=== PATIENT | female | born 1950 | race Caucasian/White ===

== ENCOUNTER 2018-04-30 11:15 | Outpatient (RCR) | payer MEDICARE, OTHER, SELFPAY ==
--- NOTE | 2018-04-08 12:15 | PT.OIE ---
Current Diagnoses Cervicalgia (04/08/18) Low back pain (04/08/18) Abnormal posture (04/08/18) Weakness (04/08/18) Provider Visit Care Team Role Provider Type Sonu Walter MD Primary Care Provider Physician Specialty: Internal Medicine Address: [address] [place] [address] Email: Young Humphrey MD Family Provider Non-Staff Specialty: Medical Address: [address] [place] [address] [address], [address] Email: Rasheeda Jacob MD Attending Provider Physician Specialty: Internal Medicine Address: [address] [place] [address], [facility] Email: Physical Therapy Initial Evaluation PT-OP-A Visit Information Start: 04/08/18 08:29 Freq: Status: Active Protocol: Document 04/08/18 11:15 [facility] (Rec: 04/08/18 11:55 [facility] [id number]) Out-Patient Physical Therapy Visit Information Visit Information Visit Type Initial Evaluation Visit Start Time 10:30 Visit Stop Time 11:30 Total Visit Minutes 60 Visit Number 1 Number of SUPERINTENDENT CIRCUS Visits 0 Evaluation Information Evaluation Date 04/08/18 PT-OP-B Current Condition Start: 04/08/18 09:09 Freq: Status: Active Protocol: Document 04/08/18 11:15 [facility] (Rec: 04/08/18 11:55 [facility] [id number]) Current Condition History of Current Condition Onset Date 5 weeks ago Current Complaints 5 wk history of daily neck pain and migraines which limit her function History of Current Condition Denies any injury or trauma. Does report that no longer has recliner, but sits on couch to watch TV with right-sided rotation due to furniture arrangement. 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 Prior Treatments and Tests MRI; results in hospital records Treatment Goals Patient/Caregiver Goals Minimize or eliminate neck pain and headaches, decrease back pain all to allow her to return to usual activities. Prior Functional Status Baseline Function- ADL's Independent Baseline Function- Mobility Independent Baseline Function- Gait independent, no device Current Functional Impairments (Reported) Functional Limitations- ADL's difficulty turning neck, pain with reading, increased pain with houshold activities, decreased activity tolerance PT-OP-C Subjective Start: 04/08/18 08:29 Freq: Status: Active Protocol: Document 04/08/18 11:15 [facility] (Rec: 04/08/18 11:55 [facility] [id number]) OP-PT Pain Assessment Pain Assessment Grid Paper Pain Assessment Grid Completed Yes Location Neck Scale Used Numeric (1 - 10) Description Aching Pressure With Movement Frequency Constant Radiating Location up into jaw, side of head Pain Aggravating Factors Activity Pain Alleviating Factors None Pain Behaviors Pain Behaviors Facial Grimacing Guarding PT-OP-E Functional Tests Start: 04/08/18 09:09 Freq: Status: Active Protocol: Document 04/08/18 11:15 [facility] (Rec: 04/08/18 11:55 [facility] [id number]) Functional Tests Apley's Scratch Test Action 1: The subject is instructed to touch the opposite shoulder with his/her hand. This motion checks Glenohumeral adduction, internal rotation , horizontal adduction and scapular protraction Action 2: The subject is instructed to place his/her arm overhead and reach behind the neck to touch his/her upper back. This motion checks Glenohumeral abduction, external rotation and scapular upward rotation and elevation. Action 3: The subject puts his/her hand on the lower back and reaches upward as far as possible. This motion checks glenohumeral adduction, internal rotation and scapular retraction with downward rotation Action 1- Left post shld Action 1- Right post shld Action 2- Left T2 Action 2- Right T2 Action 3- Left T7 Action 3- Right T7 PT-OP-F Manual Assessment Start: 04/08/18 09:09 Freq: Status: Active Protocol: Document 04/08/18 11:15 [facility] (Rec: 04/08/18 11:55 [facility] [id number]) Manual Assessments Soft Tissue Assessment Soft Tissue Mobility Assessment Increased soft tissue tightness left UT, levator, scalenes, rhomboids Joint Mobility Assessment Joint Mobility Assessment Decreased movement C3-C6 PT-OP-H Neuro Start: 04/08/18 09:09 Freq: Status: Active Protocol: Document 04/08/18 10:30 [facility] (Rec: 04/08/18 11:56 [facility] [id number]) Sensation Evaluation Gross Sensation Gross Sensation WNL PT-OP-J Posture/Palpation/Skin Start: 04/08/18 09:09 Freq: Status: Active Protocol: Document 04/08/18 10:30 [facility] (Rec: 04/08/18 11:58 [facility] [id number]) Posture Evaluation Position Sitting Head/C-Spine Posture Forward Head T-Spine Posture Increased Kyphosis L-Spine Posture Flattened Shoulder Posture (L) Rounded (R) Rounded Weight Distribution Decreased Wt.Bear on (R) PT-OP-K Range of Motion Start: 04/08/18 09:09 Freq: Status: Active Protocol: Document 04/08/18 10:30 [facility] (Rec: 04/08/18 12:13 [facility] [id number]) Cervical Spine Range of Motion Cervical Spine Active Testing Position Sitting Flexion 60 Extension 55 Rotation Left 65 Rotation Right 45 Lateral Flexion Left 65 Lateral Flexion Right 40 ROM Limitations Pain Lumbar Spine Range of Motion Lumbar Spine Active Testing Position standing ROM Limitations Pain Comments moderate limitations all motions, unable to extend beyond neutral PT-OP-M Strength Start: 04/08/18 09:09 Freq: Status: Active Protocol: Document 04/08/18 10:30 [facility] (Rec: 04/08/18 12:13 [facility] [id number]) Cervical Spine Strength Cervical Spine Manual Muscle Testing Testing Position Sitting Flexion (C1-2) 4+ Good+ Extension 4+ Good+ Rotation Left 4+ Good+ Rotation Right 4+ Good+ Lateral Flexion Left (C3) 4+ Good+ Lateral Flexion Right (C3) 4+ Good+ Comments Painful left with flexion PT-OP-Q Treatments Start: 04/08/18 08:29 Freq: Status: Active Protocol: Document 04/08/18 10:30 [facility] (Rec: 04/08/18 12:13 [facility] [id number]) Manual Therapy Treatment Soft Tissue Mobilization 1 Mobilization Type Strumming Intensity/Depth Moderate Body Position hooklying Manual Traction Cervical Body Position hooklying Reps/Duration 5 min Comments Patient reports pain relief Manual Techniques 1 Type MET Body Location for right aterior innominate Body Position Sidelying Reps/Duration 2 Self-Care/Home Management Treatment Education Patient Education Body Mechanics Posture Other Education positioning on couch Activities Self-Care/Home Management Activities continue use of heat PT-OP-R Modalities Start: 04/08/18 09:09 Freq: Status: Active Protocol: Document 04/08/18 10:30 [facility] (Rec: 04/08/18 12:13 [facility] [id number]) Hot Pack/Cold Pack Treatment Hot Pack Location cervical spine Patient Position Hooklying PT-OP-T Assessment and Plan Start: 04/08/18 08:29 Freq: Status: Active Protocol: Document 04/08/18 10:30 [facility] (Rec: 04/08/18 12:13 [facility] [id number]) Physical Therapy Assessment Rehab Potential Rehabilitation Potential Good Evaluation Complexity Number of Personal Factors/Comorbidities 1-2 Clinical Presentation at Evaluation Unstable Impairments Impairments Functional Activities Pain Posture ROM Goals Three Impairment postural dysfunction and poor habitual positioning Short Term Goal (STG) Patient to demonstrate good understanding of neutral postural alignment and be able to self-correct with min cues STG Duration 6 wks Intermediate Goal (LTG) Patient will make necessary changes in the home to allow for more neutral positioning of neck and be independent with postural correction LTG Duration 12 wjs Two Impairment ROM Short Term Goal (STG) Improve neck ROM by 10 deg in both right rotation and right sidebending STG Duration 6 wks Production Engine Repairer Goal (LTG) Improve neck ROM to WNL without pain to allow patient to resume all prior activities One Impairment functional activities Short Term Goal (STG) Improve neck disability index score from 48 to 35 STG Duration 6wks Production Engine Repairer Goal (LTG) Improve neck disability index score to 20 to improve quality of life LTG Duration 12 wks Assessment Summary Assessment Patient presents with function -limiting pain in cervical spine which appears due to degenerative changes as well as postural and positioning dysfunction, poor habits. Additionally chronic LBP exacerbated recently. Would benefit from PT for pain management, ROM, patient education, modalties and manual techniques, possible cervical traction including consideration of home traction unit if beneficial. Physical Therapy Plan Frequency and Duration Frequency of Treatment 2x/Week Duration of Treatment 12 Plan of Care Start Date 04/08/18 Plan of Care End Date 07/06/18 Therapeutic Interventions Therapeutic Interventions Home Exercise Program Manual Therapy Patient/Caregiver Education Self-Care/Home Management Taping Therapeutic Activities Therapeutic Exercises Modalities Electric Stimulation Hot Packs Infrared Therapy Iontophoresis Traction- Mechanical Ultrasound Next Visit Focus/Plan Next Visit Plan Postural education and exercises, initiate ultrasound , progress manual treatments for soft tissue mobilization Provider Signature Date
--- NOTE | 2018-04-08 12:16 | PT.OPPOC ---
Current Diagnoses Cervicalgia (04/08/18) Low back pain (04/08/18) Abnormal posture (04/08/18) Weakness (04/08/18) Provider Visit Care Team Role Provider Type Sonu Walter MD Primary Care Provider Physician Specialty: Internal Medicine Address: [address] [place] [address] Email: Young Humphrey MD Family Provider Non-Staff Specialty: Medical Address: [address] [place] [address] [address], [place], [address] Email: Rasheeda Jacob MD Attending Provider Physician Specialty: Internal Medicine Address: [address] [place] [address], [facility] Email: Plan Of Care PT-OP-T Assessment and Plan Start: 04/08/18 08:29 Freq: Status: Active Protocol: Document 04/08/18 10:30 [facility] (Rec: 04/08/18 12:13 [facility] [id number]) Physical Therapy Assessment Rehab Potential Rehabilitation Potential Good Evaluation Complexity Number of Personal Factors/Comorbidities 1-2 Clinical Presentation at Evaluation Unstable Impairments Impairments Functional Activities Pain Posture ROM Goals Three Impairment postural dysfunction and poor habitual positioning Short Term Goal (STG) Patient to demonstrate good understanding of neutral postural alignment and be able to self-correct with min cues STG Duration 6 wks Detention Goal (LTG) Patient will make necessary changes in the home to allow for more neutral positioning of neck and be independent with postural correction LTG Duration 12 wjs Two Impairment ROM Short Term Goal (STG) Improve neck ROM by 10 deg in both right rotation and right sidebending STG Duration 6 wks Junior Account Manager Goal (LTG) Improve neck ROM to WNL without pain to allow patient to resume all prior activities One Impairment functional activities Short Term Goal (STG) Improve neck disability index score from 48 to 35 STG Duration 6wks Detention Goal (LTG) Improve neck disability index score to 20 to improve quality of life LTG Duration 12 wks Assessment Summary Assessment Patient presents with function -limiting pain in cervical spine which appears due to degenerative changes as well as postural and positioning dysfunction, poor habits. Additionally chronic LBP exacerbated recently. Would benefit from PT for pain management, ROM, patient education, modalties and manual techniques, possible cervical traction including consideration of home traction unit if beneficial. Physical Therapy Plan Frequency and Duration Frequency of Treatment 2x/Week Duration of Treatment 12 Plan of Care Start Date 04/08/18 Plan of Care End Date 07/06/18 Therapeutic Interventions Therapeutic Interventions Home Exercise Program Manual Therapy Patient/Caregiver Education Self-Care/Home Management Taping Therapeutic Activities Therapeutic Exercises Modalities Electric Stimulation Hot Packs Infrared Therapy Iontophoresis Traction- Mechanical Ultrasound Next Visit Focus/Plan Next Visit Plan Postural education and exercises, initiate ultrasound , progress manual treatments for soft tissue mobilization Plan of Care Dates Plan of Care Start Date 04/08/18 Plan of Care End Date 07/06/18 Please Sign and Return: I have reviewed this Plan of Care and certify that the skilled therapy services above are required to meet the patient???s needs. Physician Signature Date Printed Name and Credentials
--- NOTE | 2018-04-13 14:27 | PT.OTN ---
Current Diagnoses Cervicalgia (04/13/18) Low back pain (04/13/18) Physical Therapy Treatment Note PT-OP-A Visit Information Start: 04/08/18 08:29 Freq: Status: Active Protocol: Document 04/13/18 09:46 [facility] (Rec: 04/13/18 14:27 [facility] [id number]) Out-Patient Physical Therapy Visit Information Visit Information Visit Type Treatment Note Visit Start Time 09:46 Visit Stop Time 10:31 Total Visit Minutes 45 Visit Number 2 Number of ADDING MACHINE MECHANIC Visits 0 PT-OP-B Current Condition Start: 04/08/18 09:09 Freq: Status: Active Protocol: Document 04/08/18 11:15 [facility] (Rec: 04/08/18 11:55 [facility] [id number]) Current Condition History of Current Condition Onset Date 5 weeks ago Current Complaints 5 wk history of daily neck pain and migraines which limit her function History of Current Condition Denies any injury or trauma. Does report that no longer has recliner, but sits on couch to watch TV with right-sided rotation due to furniture arrangement. 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 Prior Treatments and Tests MRI; results in hospital records Treatment Goals Patient/Caregiver Goals Minimize or eliminate neck pain and headaches, decrease back pain all to allow her to return to usual activities. Prior Functional Status Baseline Function- ADL's Independent Baseline Function- Mobility Independent Baseline Function- Gait independent, no device Current Functional Impairments (Reported) Functional Limitations- ADL's difficulty turning neck, pain with reading, increased pain with houshold activities, decreased activity tolerance PT-OP-C Subjective Start: 04/08/18 08:29 Freq: Status: Active Protocol: Document 04/13/18 09:46 [facility] (Rec: 04/13/18 10:36 [facility] [id number]) OP-PT Subjective Patient Comments Patient Comments Only 1 migraine since last seen, has made positional changes at home. Pleased with progress. Patient Reported Progress Improving PT-OP-E Functional Tests Start: 04/08/18 09:09 Freq: Status: Active Protocol: Document 04/08/18 11:15 [facility] (Rec: 04/08/18 11:55 [facility] [id number]) Functional Tests Akshatey's Scratch Test Action 1: The subject is instructed to touch the opposite shoulder with his/her hand. This motion checks Glenohumeral adduction, internal rotation , horizontal adduction and scapular protraction Action 2: The subject is instructed to place his/her arm overhead and reach behind the neck to touch his/her upper back. This motion checks Glenohumeral abduction, external rotation and scapular upward rotation and elevation. Action 3: The subject puts his/her hand on the lower back and reaches upward as far as possible. This motion checks glenohumeral adduction, internal rotation and scapular retraction with downward rotation Action 1- Left post shld Action 1- Right post shld Action 2- Left T2 Action 2- Right T2 Action 3- Left T7 Action 3- Right T7 PT-OP-F Manual Assessment Start: 04/08/18 09:09 Freq: Status: Active Protocol: Document 04/08/18 11:15 [facility] (Rec: 04/08/18 11:55 [facility] [id number]) Manual Assessments Soft Tissue Assessment Soft Tissue Mobility Assessment Increased soft tissue tightness left UT, levator, scalenes, rhomboids Joint Mobility Assessment Joint Mobility Assessment Decreased movement C3-C6 PT-OP-H Neuro Start: 04/08/18 09:09 Freq: Status: Active Protocol: Document 04/08/18 10:30 [facility] (Rec: 04/08/18 11:56 [facility] [id number]) Sensation Evaluation Gross Sensation Gross Sensation WNL PT-OP-J Posture/Palpation/Skin Start: 04/08/18 09:09 Freq: Status: Active Protocol: Document 04/08/18 10:30 [facility] (Rec: 04/08/18 11:58 [facility] [id number]) Posture Evaluation Position Sitting Head/C-Spine Posture Forward Head T-Spine Posture Increased Kyphosis L-Spine Posture Flattened Shoulder Posture (L) Rounded (R) Rounded Weight Distribution Decreased Wt.Bear on (R) PT-OP-K Range of Motion Start: 04/08/18 09:09 Freq: Status: Active Protocol: Document 04/08/18 10:30 [facility] (Rec: 04/08/18 12:13 [facility] [id number]) Cervical Spine Range of Motion Cervical Spine Active Testing Position Sitting Flexion 60 Extension 55 Rotation Left 65 Rotation Right 45 Lateral Flexion Left 65 Lateral Flexion Right 40 ROM Limitations Pain Lumbar Spine Range of Motion Lumbar Spine Active Testing Position standing ROM Limitations Pain Comments moderate limitations all motions, unable to extend beyond neutral PT-OP-M Strength Start: 04/08/18 09:09 Freq: Status: Active Protocol: Document 04/08/18 10:30 [facility] (Rec: 04/08/18 12:13 [facility] [id number]) Cervical Spine Strength Cervical Spine Manual Muscle Testing Testing Position Sitting Flexion (C1-2) 4+ Good+ Extension 4+ Good+ Rotation Left 4+ Good+ Rotation Right 4+ Good+ Lateral Flexion Left (C3) 4+ Good+ Lateral Flexion Right (C3) 4+ Good+ Comments Painful left with flexion PT-OP-Q Treatments Start: 04/08/18 08:29 Freq: Status: Active Protocol: Document 04/13/18 09:46 [facility] (Rec: 04/13/18 14:27 [facility] [id number]) Therapeutic Exercises Supine Exercises 2 Supine Exercise Name hip flexor stretch Equipment Used treatment table Reps/Minutes 2 ea 1 Supine Exercise Name pillow squeeze Reps/Minutes 5 Manual Therapy Treatment Soft Tissue Mobilization 2 Body Location l/s Mobilization Type Strumming Intensity/Depth Moderate Body Position Prone Comments prone pillow 1 Body Location c/s, upper traps, levator scap Mobilization Type Strumming Intensity/Depth Moderate Body Position hooklying Manual Traction Cervical Body Position hooklying Reps/Duration 10 min Comments Patient reports pain relief Manual Techniques 2 Type iliopsoas release Body Position hooklying 1 Type MET Body Location for right aterior innominate Body Position Sidelying Reps/Duration 2 PT-OP-R Modalities Start: 04/08/18 09:09 Freq: Status: Active Protocol: Document 04/13/18 09:46 [facility] (Rec: 04/13/18 14:27 [facility] [id number]) Hot Pack/Cold Pack Treatment Hot Pack Location l/s during c/s manual treatment PT-OP-T Assessment and Plan Start: 04/08/18 08:29 Freq: Status: Active Protocol: Document 04/13/18 09:46 [facility] (Rec: 04/13/18 14:27 [facility] [id number]) Physical Therapy Assessment Assessment Summary Assessment Patient tolerated treatment well and verbalized decreased pain. Responded well to first treatment and recommendations for modifications to positioning in her home all of which seem to be helpful. Good progress. Physical Therapy Plan Frequency and Duration Frequency of Treatment 2x/Week Duration of Treatment 12 Plan of Care Start Date 04/08/18 Plan of Care End Date 07/06/18 Therapeutic Interventions Therapeutic Interventions Home Exercise Program Manual Therapy Patient/Caregiver Education Self-Care/Home Management Taping Therapeutic Activities Therapeutic Exercises Modalities Electric Stimulation Hot Packs Infrared Therapy Iontophoresis Traction- Mechanical Ultrasound Next Visit Focus/Plan Next Visit Plan Assess response to last session, progress ther ex as tolerated, continue manual therapy techniques for pain management, soft tissue mobility. Please Sign and Return: I have reviewed this Plan of Care and certify that the skilled therapy services above are required to meet the patient???s needs. Physician Signature Date Printed Name and Credentials Clinical Instructor Signature Printed Name and Credentials
--- NOTE | 2018-04-15 13:31 | PT.OTN ---
Current Diagnoses Cervicalgia (04/15/18) Low back pain (04/15/18) Physical Therapy Treatment Note PT-OP-A Visit Information Start: 04/08/18 08:29 Freq: Status: Active Protocol: Document 04/15/18 10:30 SAK (Rec: 04/15/18 13:30 SAK [id number]) Out-Patient Physical Therapy Visit Information Visit Information Visit Type Treatment Note Visit Start Time 10:30 Visit Stop Time 11:15 Total Visit Minutes 45 Visit Number 3 Number of REPAIRER TYPEWRITER Visits 0 Evaluation Information Evaluation Date 04/08/18 PT-OP-B Current Condition Start: 04/08/18 09:09 Freq: Status: Active Protocol: Document 04/08/18 11:15 SAK (Rec: 04/08/18 11:55 SAK [id number]) Current Condition History of Current Condition Onset Date 5 weeks ago Current Complaints 5 wk history of daily neck pain and migraines which limit her function History of Current Condition Denies any injury or trauma. Does report that no longer has recliner, but sits on couch to watch TV with right-sided rotation due to furniture arrangement. 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 Prior Treatments and Tests MRI; results in hospital records Treatment Goals Patient/Caregiver Goals Minimize or eliminate neck pain and headaches, decrease back pain all to allow her to return to usual activities. Prior Functional Status Baseline Function- ADL's Independent Baseline Function- Mobility Independent Baseline Function- Gait independent, no device Current Functional Impairments (Reported) Functional Limitations- ADL's difficulty turning neck, pain with reading, increased pain with houshold activities, decreased activity tolerance PT-OP-C Subjective Start: 04/08/18 08:29 Freq: Status: Active Protocol: Document 04/15/18 10:30 SAK (Rec: 04/15/18 13:22 SAK [id number]) OP-PT Subjective Patient Comments Patient Comments No migraine, but reports feeling fluttering in side of head which can sometimes be a precursor. Wants to work on both back and neck today. Patient Reported Progress Improving PT-OP-E Functional Tests Start: 04/08/18 09:09 Freq: Status: Active Protocol: Document 04/08/18 11:15 SAK (Rec: 04/08/18 11:55 [facility] [id number]) Functional Tests Apley's Scratch Test Action 1: The subject is instructed to touch the opposite shoulder with his/her hand. This motion checks Glenohumeral adduction, internal rotation , horizontal adduction and scapular protraction Action 2: The subject is instructed to place his/her arm overhead and reach behind the neck to touch his/her upper back. This motion checks Glenohumeral abduction, external rotation and scapular upward rotation and elevation. Action 3: The subject puts his/her hand on the lower back and reaches upward as far as possible. This motion checks glenohumeral adduction, internal rotation and scapular retraction with downward rotation Action 1- Left post shld Action 1- Right post shld Action 2- Left T2 Action 2- Right T2 Action 3- Left T7 Action 3- Right T7 PT-OP-F Manual Assessment Start: 04/08/18 09:09 Freq: Status: Active Protocol: Document 04/08/18 11:15 [facility] (Rec: 04/08/18 11:55 [facility] [id number]) Manual Assessments Soft Tissue Assessment Soft Tissue Mobility Assessment Increased soft tissue tightness left UT, levator, scalenes, rhomboids Joint Mobility Assessment Joint Mobility Assessment Decreased movement C3-C6 PT-OP-H Neuro Start: 04/08/18 09:09 Freq: Status: Active Protocol: Document 04/08/18 10:30 [facility] (Rec: 04/08/18 11:56 [facility] [id number]) Sensation Evaluation Gross Sensation Gross Sensation WNL PT-OP-J Posture/Palpation/Skin Start: 04/08/18 09:09 Freq: Status: Active Protocol: Document 04/08/18 10:30 [facility] (Rec: 04/08/18 11:58 [facility] [id number]) Posture Evaluation Position Sitting Head/C-Spine Posture Forward Head T-Spine Posture Increased Kyphosis L-Spine Posture Flattened Shoulder Posture (L) Rounded (R) Rounded Weight Distribution Decreased Wt.Bear on (R) PT-OP-K Range of Motion Start: 04/08/18 09:09 Freq: Status: Active Protocol: Document 04/08/18 10:30 [facility] (Rec: 04/08/18 12:13 [facility] [id number]) Cervical Spine Range of Motion Cervical Spine Active Testing Position Sitting Flexion 60 Extension 55 Rotation Left 65 Rotation Right 45 Lateral Flexion Left 65 Lateral Flexion Right 40 ROM Limitations Pain Lumbar Spine Range of Motion Lumbar Spine Active Testing Position standing ROM Limitations Pain Comments moderate limitations all motions, unable to extend beyond neutral PT-OP-M Strength Start: 04/08/18 09:09 Freq: Status: Active Protocol: Document 04/08/18 10:30 SAK (Rec: 04/08/18 12:13 [facility] [id number]) Cervical Spine Strength Cervical Spine Manual Muscle Testing Testing Position Sitting Flexion (C1-2) 4+ Good+ Extension 4+ Good+ Rotation Left 4+ Good+ Rotation Right 4+ Good+ Lateral Flexion Left (C3) 4+ Good+ Lateral Flexion Right (C3) 4+ Good+ Comments Painful left with flexion PT-OP-Q Treatments Start: 04/08/18 08:29 Freq: Status: Active Protocol: Document 04/15/18 10:30 SAK (Rec: 04/15/18 13:29 [facility] [id number]) Therapeutic Exercises Supine Exercises 3 Supine Exercise Name hamstring stretch right Comments too painful/tight to tolerate 2 Supine Exercise Name hip flexor stretch Equipment Used treatment table Reps/Minutes 2 ea 1 Supine Exercise Name pillow squeeze Reps/Minutes 5 Standing Exercises 1 Standing Exercise Name postural isometric at wall standing Reps/Minutes 5x Comments with postural education, written pictures issued Other Exercises 1 Other Exercise Name Gentle cat/cow Reps/Minutes 5x Manual Therapy Treatment Soft Tissue Mobilization 2 Body Location l/s, right hamstring Mobilization Type Strumming Intensity/Depth Moderate Body Position Prone Comments prone pillow 1 Body Location c/s, upper traps, levator scap Mobilization Type Strumming Intensity/Depth Moderate Body Position hooklying Manual Traction Cervical Body Position hooklying Reps/Duration 10 min Comments Patient reports pain relief Taping 1 Body Location left thoracolumbar paraspinals Treatment Focus inhibition, pain management Type of Tape Kinesio Tape Comments I strip PT-OP-R Modalities Start: 04/08/18 09:09 Freq: Status: Active Protocol: Document 04/15/18 10:30 SAK (Rec: 04/15/18 13:29 [facility] [id number]) Hot Pack/Cold Pack Treatment Hot Pack Location l/s during c/s manual treatment PT-OP-T Assessment and Plan Start: 04/08/18 08:29 Freq: Status: Active Protocol: Document 04/15/18 10:30 SAK (Rec: 04/15/18 13:29 [facility] [id number]) Physical Therapy Assessment Assessment Summary Assessment Poor tolerance for hamstring stretching. Palpable muscle tightness mid to distal right hamstring and right thoracic and lumbar paraspinals. Physical Therapy Plan Frequency and Duration Frequency of Treatment 2x/Week Duration of Treatment 12 Plan of Care Start Date 04/08/18 Plan of Care End Date 07/06/18 Therapeutic Interventions Therapeutic Interventions Home Exercise Program Manual Therapy Patient/Caregiver Education Self-Care/Home Management Taping Therapeutic Activities Therapeutic Exercises Modalities Electric Stimulation Hot Packs Infrared Therapy Iontophoresis Traction- Mechanical Ultrasound Next Visit Focus/Plan Next Note Type Treatment Note Next Visit Plan Progress with further postural stabilization and strengthening exercises as tolerated. Manual techniques and modalities as indicated for pain management, increased soft tissue mobility. Please Sign and Return: I have reviewed this Plan of Care and certify that the skilled therapy services above are required to meet the patient???s needs. Physician Signature Date Printed Name and Credentials Clinical Instructor Signature Printed Name and Credentials
--- NOTE | 2018-04-20 16:16 | PT.OTN ---
Current Diagnoses Cervicalgia (04/20/18) Low back pain (04/20/18) Physical Therapy Treatment Note PT-OP-A Visit Information Start: 04/08/18 08:29 Freq: Status: Active Protocol: Document 04/20/18 15:20 SAK (Rec: 04/20/18 16:16 SAK [id number]) Out-Patient Physical Therapy Visit Information Visit Information Visit Type Treatment Note Visit Start Time 10:30 Visit Stop Time 11:15 Total Visit Minutes 45 Visit Number 4 Number of MANAGER HEART Visits 0 PT-OP-B Current Condition Start: 04/08/18 09:09 Freq: Status: Active Protocol: Document 04/08/18 11:15 SAK (Rec: 04/08/18 11:55 SAK [id number]) Current Condition History of Current Condition Onset Date 5 weeks ago Current Complaints 5 wk history of daily neck pain and migraines which limit her function History of Current Condition Denies any injury or trauma. Does report that no longer has recliner, but sits on couch to watch TV with right-sided rotation due to furniture arrangement. 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 Prior Treatments and Tests MRI; results in hospital records Treatment Goals Patient/Caregiver Goals Minimize or eliminate neck pain and headaches, decrease back pain all to allow her to return to usual activities. Prior Functional Status Baseline Function- ADL's Independent Baseline Function- Mobility Independent Baseline Function- Gait independent, no device Current Functional Impairments (Reported) Functional Limitations- ADL's difficulty turning neck, pain with reading, increased pain with houshold activities, decreased activity tolerance PT-OP-C Subjective Start: 04/08/18 08:29 Freq: Status: Active Protocol: Document 04/20/18 15:20 SAK (Rec: 04/20/18 16:16 SAK [id number]) OP-PT Subjective Patient Comments Patient Comments 2 migraines since last seen, wondering if due to focus on low back pain last session; requests focus again on c/s, DEE. PT-OP-E Functional Tests Start: 04/08/18 09:09 Freq: Status: Active Protocol: Document 04/08/18 11:15 SAK (Rec: 04/08/18 11:55 SAK [id number]) Functional Tests Apley's Scratch Test Action 1: The subject is instructed to touch the opposite shoulder with his/her hand. This motion checks Glenohumeral adduction, internal rotation , horizontal adduction and scapular protraction Action 2: The subject is instructed to place his/her arm overhead and reach behind the neck to touch his/her upper back. This motion checks Glenohumeral abduction, external rotation and scapular upward rotation and elevation. Action 3: The subject puts his/her hand on the lower back and reaches upward as far as possible. This motion checks glenohumeral adduction, internal rotation and scapular retraction with downward rotation Action 1- Left post shld Action 1- Right post shld Action 2- Left T2 Action 2- Right T2 Action 3- Left T7 Action 3- Right T7 PT-OP-F Manual Assessment Start: 04/08/18 09:09 Freq: Status: Active Protocol: Document 04/08/18 11:15 [facility] (Rec: 04/08/18 11:55 [facility] [id number]) Manual Assessments Soft Tissue Assessment Soft Tissue Mobility Assessment Increased soft tissue tightness left UT, levator, scalenes, rhomboids Joint Mobility Assessment Joint Mobility Assessment Decreased movement C3-C6 PT-OP-H Neuro Start: 04/08/18 09:09 Freq: Status: Active Protocol: Document 04/08/18 10:30 [facility] (Rec: 04/08/18 11:56 [facility] [id number]) Sensation Evaluation Gross Sensation Gross Sensation WNL PT-OP-J Posture/Palpation/Skin Start: 04/08/18 09:09 Freq: Status: Active Protocol: Document 04/08/18 10:30 [facility] (Rec: 04/08/18 11:58 [facility] [id number]) Posture Evaluation Position Sitting Head/C-Spine Posture Forward Head T-Spine Posture Increased Kyphosis L-Spine Posture Flattened Shoulder Posture (L) Rounded (R) Rounded Weight Distribution Decreased Wt.Bear on (R) PT-OP-K Range of Motion Start: 04/08/18 09:09 Freq: Status: Active Protocol: Document 04/08/18 10:30 SAK (Rec: 04/08/18 12:13 [facility] [id number]) Cervical Spine Range of Motion Cervical Spine Active Testing Position Sitting Flexion 60 Extension 55 Rotation Left 65 Rotation Right 45 Lateral Flexion Left 65 Lateral Flexion Right 40 ROM Limitations Pain Lumbar Spine Range of Motion Lumbar Spine Active Testing Position standing ROM Limitations Pain Comments moderate limitations all motions, unable to extend beyond neutral PT-OP-M Strength Start: 04/08/18 09:09 Freq: Status: Active Protocol: Document 04/08/18 10:30 [facility] (Rec: 04/08/18 12:13 [facility] [id number]) Cervical Spine Strength Cervical Spine Manual Muscle Testing Testing Position Sitting Flexion (C1-2) 4+ Good+ Extension 4+ Good+ Rotation Left 4+ Good+ Rotation Right 4+ Good+ Lateral Flexion Left (C3) 4+ Good+ Lateral Flexion Right (C3) 4+ Good+ Comments Painful left with flexion PT-OP-Q Treatments Start: 04/08/18 08:29 Freq: Status: Active Protocol: Document 04/20/18 15:20 [facility] (Rec: 04/20/18 16:16 [facility] [id number]) Manual Therapy Treatment Soft Tissue Mobilization 1 Body Location c/s, upper traps, levator scap Mobilization Type Strumming Intensity/Depth Moderate Body Position hooklying Manual Traction Cervical Body Position hooklying Reps/Duration 10 min Comments Patient reports pain relief Self-Care/Home Management Treatment Education Patient Education Pain Management Other Education use of tennis balls for suboccipital release PT-OP-R Modalities Start: 04/08/18 09:09 Freq: Status: Active Protocol: Document 04/20/18 15:20 [facility] (Rec: 04/20/18 16:16 [facility] [id number]) Hot Pack/Cold Pack Treatment Hot Pack Location c/s Patient Position Hooklying Comments during mechanical traction Spinal Traction Traction Treatment Cervical Method Mechanical Patient Position Hooklying Duration of Treatment (Minutes) 15 Traction Treatment Comment 30on 10 off intermittent. 12#/8# PT-OP-T Assessment and Plan Start: 04/08/18 08:29 Freq: Status: Active Protocol: Document 04/20/18 15:20 [facility] (Rec: 04/20/18 16:16 [facility] [id number]) Physical Therapy Assessment Rehab Potential Rehabilitation Potential Good Evaluation Complexity Number of Personal Factors/Comorbidities 1-2 Clinical Presentation at Evaluation Unstable Impairments Impairments Functional Activities Pain Posture ROM Goals Three Impairment postural dysfunction and poor habitual positioning Short Term Goal (STG) Patient to demonstrate good understanding of neutral postural alignment and be able to self-correct with min cues STG Duration 6 wks Real Estate Associate Attorney Goal (LTG) Patient will make necessary changes in the home to allow for more neutral positioning of neck and be independent with postural correction LTG Duration 12 wks Two Impairment ROM Short Term Goal (STG) Improve neck ROM by 10 deg in both right rotation and right sidebending STG Duration 6 wks Detention Goal (LTG) Improve neck ROM to WNL without pain to allow patient to resume all prior activities One Impairment functional activities Short Term Goal (STG) Improve neck disability index score from 48 to 35 STG Duration 6wks Real Estate Associate Attorney Goal (LTG) Improve neck disability index score to 20 to improve quality of life LTG Duration 12 wks Assessment Summary Assessment Good tolerance for manual traction and improved understanding of how to use tennis balls for suboccipital release at home. Physical Therapy Plan Frequency and Duration Frequency of Treatment 2x/Week Duration of Treatment 12 Plan of Care Start Date 04/08/18 Plan of Care End Date 07/06/18 Therapeutic Interventions Therapeutic Interventions Home Exercise Program Manual Therapy Patient/Caregiver Education Self-Care/Home Management Taping Therapeutic Activities Therapeutic Exercises Modalities Electric Stimulation Hot Packs Infrared Therapy Iontophoresis Traction- Mechanical Ultrasound Next Visit Focus/Plan Next Note Type Treatment Note Next Visit Plan Assess response to mechanical traction. Progress manual techniques and ther ex as indicated. Please Sign and Return: I have reviewed this Plan of Care and certify that the skilled therapy services above are required to meet the patient???s needs. Physician Signature Date Printed Name and Credentials Clinical Instructor Signature Printed Name and Credentials
--- NOTE | 2018-04-22 11:48 | PT.OTN ---
Current Diagnoses Cervicalgia (04/22/18) Low back pain (04/22/18) Physical Therapy Treatment Note PT-OP-A Visit Information Start: 04/08/18 08:29 Freq: Status: Active Protocol: Document 04/22/18 10:30 SAK (Rec: 04/22/18 11:47 [facility] [id number]) Out-Patient Physical Therapy Visit Information Visit Information Visit Type Treatment Note Visit Start Time 10:30 Visit Stop Time 11:15 Total Visit Minutes 60 Visit Number 5 Number of BALER Visits 0 PT-OP-B Current Condition Start: 04/08/18 09:09 Freq: Status: Active Protocol: Document 04/08/18 11:15 SAK (Rec: 04/08/18 11:55 SAK [id number]) Current Condition History of Current Condition Onset Date 5 weeks ago Current Complaints 5 wk history of daily neck pain and migraines which limit her function History of Current Condition Denies any injury or trauma. Does report that no longer has recliner, but sits on couch to watch TV with right-sided rotation due to furniture arrangement. 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 Prior Treatments and Tests MRI; results in hospital records Treatment Goals Patient/Caregiver Goals Minimize or eliminate neck pain and headaches, decrease back pain all to allow her to return to usual activities. Prior Functional Status Baseline Function- ADL's Independent Baseline Function- Mobility Independent Baseline Function- Gait independent, no device Current Functional Impairments (Reported) Functional Limitations- ADL's difficulty turning neck, pain with reading, increased pain with houshold activities, decreased activity tolerance PT-OP-C Subjective Start: 04/08/18 08:29 Freq: Status: Active Protocol: Document 04/22/18 10:30 SAK (Rec: 04/22/18 11:47 [facility] [id number]) OP-PT Subjective Patient Comments Patient Comments no migraines but reports waking up with the fluttering sensation on side of face and neck. [place] better rest of day after mechancal traction to neck last session, but increased soreness since. Agreeable to try ice pack after traction today. PT-OP-E Functional Tests Start: 04/08/18 09:09 Freq: Status: Active Protocol: Document 04/08/18 11:15 SAK (Rec: 04/08/18 11:55 [facility] [id number]) Functional Tests Apley's Scratch Test Action 1: The subject is instructed to touch the opposite shoulder with his/her hand. This motion checks Glenohumeral adduction, internal rotation , horizontal adduction and scapular protraction Action 2: The subject is instructed to place his/her arm overhead and reach behind the neck to touch his/her upper back. This motion checks Glenohumeral abduction, external rotation and scapular upward rotation and elevation. Action 3: The subject puts his/her hand on the lower back and reaches upward as far as possible. This motion checks glenohumeral adduction, internal rotation and scapular retraction with downward rotation Action 1- Left post shld Action 1- Right post shld Action 2- Left T2 Action 2- Right T2 Action 3- Left T7 Action 3- Right T7 PT-OP-F Manual Assessment Start: 04/08/18 09:09 Freq: Status: Active Protocol: Document 04/08/18 11:15 [facility] (Rec: 04/08/18 11:55 [facility] [id number]) Manual Assessments Soft Tissue Assessment Soft Tissue Mobility Assessment Increased soft tissue tightness left UT, levator, scalenes, rhomboids Joint Mobility Assessment Joint Mobility Assessment Decreased movement C3-C6 PT-OP-H Neuro Start: 04/08/18 09:09 Freq: Status: Active Protocol: Document 04/08/18 10:30 [facility] (Rec: 04/08/18 11:56 [facility] [id number]) Sensation Evaluation Gross Sensation Gross Sensation WNL PT-OP-J Posture/Palpation/Skin Start: 04/08/18 09:09 Freq: Status: Active Protocol: Document 04/08/18 10:30 [facility] (Rec: 04/08/18 11:58 [facility] [id number]) Posture Evaluation Position Sitting Head/C-Spine Posture Forward Head T-Spine Posture Increased Kyphosis L-Spine Posture Flattened Shoulder Posture (L) Rounded (R) Rounded Weight Distribution Decreased Wt.Bear on (R) PT-OP-K Range of Motion Start: 04/08/18 09:09 Freq: Status: Active Protocol: Document 04/08/18 10:30 SAK (Rec: 04/08/18 12:13 [facility] [id number]) Cervical Spine Range of Motion Cervical Spine Active Testing Position Sitting Flexion 60 Extension 55 Rotation Left 65 Rotation Right 45 Lateral Flexion Left 65 Lateral Flexion Right 40 ROM Limitations Pain Lumbar Spine Range of Motion Lumbar Spine Active Testing Position standing ROM Limitations Pain Comments moderate limitations all motions, unable to extend beyond neutral PT-OP-M Strength Start: 04/08/18 09:09 Freq: Status: Active Protocol: Document 04/08/18 10:30 [facility] (Rec: 04/08/18 12:13 [facility] [id number]) Cervical Spine Strength Cervical Spine Manual Muscle Testing Testing Position Sitting Flexion (C1-2) 4+ Good+ Extension 4+ Good+ Rotation Left 4+ Good+ Rotation Right 4+ Good+ Lateral Flexion Left (C3) 4+ Good+ Lateral Flexion Right (C3) 4+ Good+ Comments Painful left with flexion PT-OP-Q Treatments Start: 04/08/18 08:29 Freq: Status: Active Protocol: Document 04/22/18 10:30 [facility] (Rec: 04/22/18 11:47 [facility] [id number]) Cardio Equipment Recumbent Stepper (Sci-Fit) Duration (Minutes) 5 Resistance 1 Therapeutic Exercises Sidelying Exercises 1 Sidelying Exercise Name reach and roll Side bilateral Comments pain-free ROM; stopping motion at lower thoracic spine Standing Exercises 1 Standing Exercise Name postural isometric at wall standing Reps/Minutes 5x Comments with postural education, written pictures issued Manual Therapy Treatment Soft Tissue Mobilization 2 Body Location lumbar and thoracic paraspinals Mobilization Type Strumming Intensity/Depth Moderate Body Position Prone Comments prone pillow 1 Body Location c/s, upper traps, levator Mobilization Type Strumming Intensity/Depth Moderate Body Position hooklying Self-Care/Home Management Treatment Education Patient Education Home Exercise Program Other Education Patient requested ideas for use of therapy ball; instr in pelvic tilt, circles, ball squeeze, small sit backs (with UE support available) PT-OP-R Modalities Start: 04/08/18 09:09 Freq: Status: Active Protocol: Document 04/22/18 10:30 [facility] (Rec: 04/22/18 11:47 [facility] [id number]) Hot Pack/Cold Pack Treatment Cold Pack Location c/s Patient Position Hooklying Treatment Duration (minutes) 10 Comments after traction Hot Pack Location c/s Patient Position Hooklying Comments during mechanical traction Spinal Traction Traction Treatment Cervical Method Mechanical Patient Position Hooklying Duration of Treatment (Minutes) 15 Traction Treatment Comment 30on 10 off intermittent. 13#/9# PT-OP-T Assessment and Plan Start: 04/08/18 08:29 Freq: Status: Active Protocol: Document 04/22/18 10:30 CLARI (Rec: 04/22/18 11:47 [facility] [id number]) Physical Therapy Assessment Goals Three Impairment postural dysfunction and poor habitual positioning Short Term Goal (STG) Patient to demonstrate good understanding of neutral postural alignment and be able to self-correct with min cues STG Duration 6 wks Licensed Nurse Practitioner Goal (LTG) Patient will make necessary changes in the home to allow for more neutral positioning of neck and be independent with postural correction LTG Duration 12 wks Two Impairment ROM Short Term Goal (STG) Improve neck ROM by 10 deg in both right rotation and right sidebending STG Duration 6 wks [facility] Goal (LTG) Improve neck ROM to WNL without pain to allow patient to resume all prior activities One Impairment functional activities Short Term Goal (STG) Improve neck disability index score from 48 to 35 STG Duration 6wks [facility] Goal (LTG) Improve neck disability index score to 20 to improve quality of life LTG Duration 12 wks Assessment Summary Assessment Demonstrates good understanding of use of therapy ball at home, good tolerance for reach and roll with improved neck ROM following. Immediate pain relief after first mechanical traction trial; added ice pack after traction today to prevent soreness. Physical Therapy Plan Frequency and Duration Frequency of Treatment 2x/Week Duration of Treatment 12 Plan of Care Start Date 04/08/18 Plan of Care End Date 07/06/18 Therapeutic Interventions Therapeutic Interventions Home Exercise Program Manual Therapy Patient/Caregiver Education Self-Care/Home Management Taping Therapeutic Activities Therapeutic Exercises Modalities Electric Stimulation Hot Packs Infrared Therapy Iontophoresis Traction- Mechanical Ultrasound Next Visit Focus/Plan Next Note Type Treatment Note Next Visit Plan Assess patient response to mechanical traction, consider discontinue if not tolerated. If benefiting from traction consider trial with home traction unit. Progress with ther ex for postural correction, strengthening. Modalities and manual therapy for pain management as indicated. Please Sign and Return: I have reviewed this Plan of Care and certify that the skilled therapy services above are required to meet the patient???s needs. Physician Signature Date Printed Name and Credentials Clinical Instructor Signature Printed Name and Credentials
--- NOTE | 2018-04-26 12:31 | PT.OTN ---
Current Diagnoses Cervicalgia (04/26/18) Low back pain (04/26/18) Physical Therapy Treatment Note PT-OP-A Visit Information Start: 04/08/18 08:29 Freq: Status: Active Protocol: Document 04/26/18 11:20 LRN (Rec: 04/26/18 12:31 [facility]N [id number]) Out-Patient Physical Therapy Visit Information Visit Information Visit Type Treatment Note Visit Start Time 11:20 Visit Stop Time 12:05 Total Visit Minutes 45 Visit Number 6 Number of PT ESCORT Visits 0 PT-OP-B Current Condition Start: 04/08/18 09:09 Freq: Status: Active Protocol: Document 04/08/18 11:15 SAK (Rec: 04/08/18 11:55 SAK [id number]) Current Condition History of Current Condition Onset Date 5 weeks ago Current Complaints 5 wk history of daily neck pain and migraines which limit her function History of Current Condition Denies any injury or trauma. Does report that no longer has recliner, but sits on couch to watch TV with right-sided rotation due to furniture arrangement. 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 Prior Treatments and Tests MRI; results in hospital records Treatment Goals Patient/Caregiver Goals Minimize or eliminate neck pain and headaches, decrease back pain all to allow her to return to usual activities. Prior Functional Status Baseline Function- ADL's Independent Baseline Function- Mobility Independent Baseline Function- Gait independent, no device Current Functional Impairments (Reported) Functional Limitations- ADL's difficulty turning neck, pain with reading, increased pain with houshold activities, decreased activity tolerance PT-OP-C Subjective Start: 04/08/18 08:29 Freq: Status: Active Protocol: Document 04/26/18 11:20 LRN (Rec: 04/26/18 12:31 LRN [id number]) OP-PT Subjective Patient Comments Patient Comments Don't want to do the traction because it made the neck stiff for a couple of days, achy, not pain. Requests manual therapy before exercise. PT-OP-E Functional Tests Start: 04/08/18 09:09 Freq: Status: Active Protocol: Document 04/08/18 11:15 SAK (Rec: 04/08/18 11:55 SAK [id number]) Functional Tests Apley's Scratch Test Action 1: The subject is instructed to touch the opposite shoulder with his/her hand. This motion checks Glenohumeral adduction, internal rotation , horizontal adduction and scapular protraction Action 2: The subject is instructed to place his/her arm overhead and reach behind the neck to touch his/her upper back. This motion checks Glenohumeral abduction, external rotation and scapular upward rotation and elevation. Action 3: The subject puts his/her hand on the lower back and reaches upward as far as possible. This motion checks glenohumeral adduction, internal rotation and scapular retraction with downward rotation Action 1- Left post shld Action 1- Right post shld Action 2- Left T2 Action 2- Right T2 Action 3- Left T7 Action 3- Right T7 PT-OP-F Manual Assessment Start: 04/08/18 09:09 Freq: Status: Active Protocol: Document 04/08/18 11:15 [facility] (Rec: 04/08/18 11:55 [facility] [id number]) Manual Assessments Soft Tissue Assessment Soft Tissue Mobility Assessment Increased soft tissue tightness left UT, levator, scalenes, rhomboids Joint Mobility Assessment Joint Mobility Assessment Decreased movement C3-C6 PT-OP-H Neuro Start: 04/08/18 09:09 Freq: Status: Active Protocol: Document 04/08/18 10:30 [facility] (Rec: 04/08/18 11:56 [facility] [id number]) Sensation Evaluation Gross Sensation Gross Sensation WNL PT-OP-J Posture/Palpation/Skin Start: 04/08/18 09:09 Freq: Status: Active Protocol: Document 04/08/18 10:30 SAK (Rec: 04/08/18 11:58 [facility] [id number]) Posture Evaluation Position Sitting Head/C-Spine Posture Forward Head T-Spine Posture Increased Kyphosis L-Spine Posture Flattened Shoulder Posture (L) Rounded (R) Rounded Weight Distribution Decreased Wt.Bear on (R) PT-OP-K Range of Motion Start: 04/08/18 09:09 Freq: Status: Active Protocol: Document 04/08/18 10:30 SAK (Rec: 04/08/18 12:13 [facility] [id number]) Cervical Spine Range of Motion Cervical Spine Active Testing Position Sitting Flexion 60 Extension 55 Rotation Left 65 Rotation Right 45 Lateral Flexion Left 65 Lateral Flexion Right 40 ROM Limitations Pain Lumbar Spine Range of Motion Lumbar Spine Active Testing Position standing ROM Limitations Pain Comments moderate limitations all motions, unable to extend beyond neutral PT-OP-M Strength Start: 04/08/18 09:09 Freq: Status: Active Protocol: Document 04/08/18 10:30 [facility] (Rec: 04/08/18 12:13 [facility] [id number]) Cervical Spine Strength Cervical Spine Manual Muscle Testing Testing Position Sitting Flexion (C1-2) 4+ Good+ Extension 4+ Good+ Rotation Left 4+ Good+ Rotation Right 4+ Good+ Lateral Flexion Left (C3) 4+ Good+ Lateral Flexion Right (C3) 4+ Good+ Comments Painful left with flexion PT-OP-Q Treatments Start: 04/08/18 08:29 Freq: Status: Active Protocol: Document 04/26/18 11:20 LRN (Rec: 04/26/18 12:31 LRN [id number]) Therapeutic Exercises Supine Exercises 2 Supine Exercise Name hip flexor stretch Equipment Used treatment table Reps/Minutes 2 ea Sidelying Exercises 1 Sidelying Exercise Name reach and roll Side bilateral Comments pain-free ROM; stopping motion at lower thoracic spine Standing Exercises 1 Standing Exercise Name postural isometric at wall standing Reps/Minutes 5x Comments with postural education, written pictures issued Manual Therapy Treatment Soft Tissue Mobilization 4 Body Location ILU massage & stretch to R lower anterior abdominalsa Mobilization Type Myofascial Release Strumming Body Position Supine 2 Body Location lumbar and thoracic paraspinals Mobilization Type Myofascial Release Strumming Intensity/Depth Moderate Body Position Prone Comments prone pillow 1 Body Location c/s, upper traps, levator Mobilization Type Strumming Intensity/Depth Moderate Body Position hooklying Neuro Re-Education Treatment Movement Re-Education Movement Re-education Activities Low back flex using hip flexors to control lumbar spine; with active thoracic extension in supine. PT-OP-R Modalities Start: 04/08/18 09:09 Freq: Status: Active Protocol: Document 04/22/18 10:30 [facility] (Rec: 04/22/18 11:47 [facility] [id number]) Hot Pack/Cold Pack Treatment Cold Pack Location c/s Patient Position Hooklying Treatment Duration (minutes) 10 Comments after traction Hot Pack Location c/s Patient Position Hooklying Comments during mechanical traction Spinal Traction Traction Treatment Cervical Method Mechanical Patient Position Hooklying Duration of Treatment (Minutes) 15 Traction Treatment Comment 30on 10 off intermittent. 13#/9# PT-OP-T Assessment and Plan Start: 04/08/18 08:29 Freq: Status: Active Protocol: Document 04/26/18 11:20 LRN (Rec: 04/26/18 12:31 LRN [id number]) Physical Therapy Assessment Goals Three Impairment postural dysfunction and poor habitual positioning Short Term Goal (STG) Patient to demonstrate good understanding of neutral postural alignment and be able to self-correct with min cues STG Duration 6 wks Recovery Specialist Goal (LTG) Patient will make necessary changes in the home to allow for more neutral positioning of neck and be independent with postural correction LTG Duration 12 wks Two Impairment ROM Short Term Goal (STG) Improve neck ROM by 10 deg in both right rotation and right sidebending STG Duration 6 wks [facility] Goal (LTG) Improve neck ROM to WNL without pain to allow patient to resume all prior activities One Impairment functional activities Short Term Goal (STG) Improve neck disability index score from 48 to 35 STG Duration 6wks Recovery Specialist Goal (LTG) Improve neck disability index score to 20 to improve quality of life LTG Duration 12 wks Assessment Summary Assessment Pt had poor response to mechanical traction with increased stiffness, and even requesting no traction today. Pt had difficulty maintaining lumbar flexion with thoracic extension even though extra time was taken for training Physical Therapy Plan Frequency and Duration Frequency of Treatment 2x/Week Duration of Treatment 12 Plan of Care Start Date 04/08/18 Plan of Care End Date 07/06/18 Therapeutic Interventions Therapeutic Interventions Home Exercise Program Manual Therapy Patient/Caregiver Education Self-Care/Home Management Taping Therapeutic Activities Therapeutic Exercises Modalities Electric Stimulation Hot Packs Infrared Therapy Iontophoresis Traction- Mechanical Ultrasound Next Visit Focus/Plan Next Note Type Treatment Note Next Visit Plan Progress postural stabilization, DC mechanical traction for now. Continue per primary therapist plan.
--- NOTE | 2018-04-30 15:25 | PT.OTN ---
Current Diagnoses Cervicalgia (04/30/18) Low back pain (04/30/18) Physical Therapy Treatment Note PT-OP-A Visit Information Start: 04/08/18 08:29 Freq: Status: Active Protocol: Document 04/30/18 11:22 LRN (Rec: 04/30/18 11:59 LRN [id number]) Out-Patient Physical Therapy Visit Information Visit Information Visit Type Treatment Note Visit Start Time 11:22 Visit Stop Time 12:15 Total Visit Minutes 53 Visit Number 7 Number of SUPERVISOR SCREEN PRINTING Visits 0 PT-OP-B Current Condition Start: 04/08/18 09:09 Freq: Status: Active Protocol: Document 04/08/18 11:15 SAK (Rec: 04/08/18 11:55 SAK [id number]) Current Condition History of Current Condition Onset Date 5 weeks ago Current Complaints 5 wk history of daily neck pain and migraines which limit her function History of Current Condition Denies any injury or trauma. Does report that no longer has recliner, but sits on couch to watch TV with right-sided rotation due to furniture arrangement. 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 Prior Treatments and Tests MRI; results in hospital records Treatment Goals Patient/Caregiver Goals Minimize or eliminate neck pain and headaches, decrease back pain all to allow her to return to usual activities. Prior Functional Status Baseline Function- ADL's Independent Baseline Function- Mobility Independent Baseline Function- Gait independent, no device Current Functional Impairments (Reported) Functional Limitations- ADL's difficulty turning neck, pain with reading, increased pain with houshold activities, decreased activity tolerance PT-OP-C Subjective Start: 04/08/18 08:29 Freq: Status: Active Protocol: Document 04/30/18 11:22 LRN (Rec: 04/30/18 11:59 LRN [id number]) OP-PT Subjective Patient Comments Patient Comments Needs to work on neck, back is coming along PT-OP-E Functional Tests Start: 04/08/18 09:09 Freq: Status: Active Protocol: Document 04/08/18 11:15 SAK (Rec: 04/08/18 11:55 SAK [id number]) Functional Tests Akshatey's Scratch Test Action 1: The subject is instructed to touch the opposite shoulder with his/her hand. This motion checks Glenohumeral adduction, internal rotation , horizontal adduction and scapular protraction Action 2: The subject is instructed to place his/her arm overhead and reach behind the neck to touch his/her upper back. This motion checks Glenohumeral abduction, external rotation and scapular upward rotation and elevation. Action 3: The subject puts his/her hand on the lower back and reaches upward as far as possible. This motion checks glenohumeral adduction, internal rotation and scapular retraction with downward rotation Action 1- Left post shld Action 1- Right post shld Action 2- Left T2 Action 2- Right T2 Action 3- Left T7 Action 3- Right T7 PT-OP-F Manual Assessment Start: 04/08/18 09:09 Freq: Status: Active Protocol: Document 04/08/18 11:15 SAK (Rec: 04/08/18 11:55 [facility] [id number]) Manual Assessments Soft Tissue Assessment Soft Tissue Mobility Assessment Increased soft tissue tightness left UT, levator, scalenes, rhomboids Joint Mobility Assessment Joint Mobility Assessment Decreased movement C3-C6 PT-OP-H Neuro Start: 04/08/18 09:09 Freq: Status: Active Protocol: Document 04/08/18 10:30 SAK (Rec: 04/08/18 11:56 [facility] [id number]) Sensation Evaluation Gross Sensation Gross Sensation WNL PT-OP-J Posture/Palpation/Skin Start: 04/08/18 09:09 Freq: Status: Active Protocol: Document 04/08/18 10:30 SAK (Rec: 04/08/18 11:58 [facility] [id number]) Posture Evaluation Position Sitting Head/C-Spine Posture Forward Head T-Spine Posture Increased Kyphosis L-Spine Posture Flattened Shoulder Posture (L) Rounded (R) Rounded Weight Distribution Decreased Wt.Bear on (R) PT-OP-K Range of Motion Start: 04/08/18 09:09 Freq: Status: Active Protocol: Document 04/08/18 10:30 SAK (Rec: 04/08/18 12:13 [facility] [id number]) Cervical Spine Range of Motion Cervical Spine Active Testing Position Sitting Flexion 60 Extension 55 Rotation Left 65 Rotation Right 45 Lateral Flexion Left 65 Lateral Flexion Right 40 ROM Limitations Pain Lumbar Spine Range of Motion Lumbar Spine Active Testing Position standing ROM Limitations Pain Comments moderate limitations all motions, unable to extend beyond neutral PT-OP-M Strength Start: 04/08/18 09:09 Freq: Status: Active Protocol: Document 04/08/18 10:30 SAK (Rec: 04/08/18 12:13 SAK [id number]) Cervical Spine Strength Cervical Spine Manual Muscle Testing Testing Position Sitting Flexion (C1-2) 4+ Good+ Extension 4+ Good+ Rotation Left 4+ Good+ Rotation Right 4+ Good+ Lateral Flexion Left (C3) 4+ Good+ Lateral Flexion Right (C3) 4+ Good+ Comments Painful left with flexion PT-OP-Q Treatments Start: 04/08/18 08:29 Freq: Status: Active Protocol: Document 04/30/18 11:22 LRN (Rec: 04/30/18 11:59 LRN [id number]) Therapeutic Exercises Supine Exercises 5 Supine Exercise Name Alternate arm lifts with Neck Elongation Reps/Minutes 10x Comments Pt to move slowly into arm flexion 4 Supine Exercise Name Neck Elongation: Deep Cervical Neck Flexors Reps/Minutes 10 Comments Hold 10 sec's Manual Therapy Treatment Soft Tissue Mobilization 2 Body Location lumbar and thoracic paraspinals Mobilization Type Myofascial Release Strumming Intensity/Depth Moderate Body Position Prone Comments prone pillow 1 Body Location c/s, upper traps, levator Mobilization Type Strumming Intensity/Depth Moderate Body Position Prone Joint Mobilizations 1 Joint 1st rib Inferior mob Grade II Body Position Supine Reps/Duration 3' PT-OP-R Modalities Start: 04/08/18 09:09 Freq: Status: Active Protocol: Document 04/30/18 11:22 LRN (Rec: 04/30/18 15:21 LRN [id number]) Hot Pack/Cold Pack Treatment Cold Pack Location LB Patient Position Hooklying Treatment Duration (minutes) 10 PT-OP-T Assessment and Plan Start: 04/08/18 08:29 Freq: Status: Active Protocol: Document 04/30/18 11:22 LRN (Rec: 04/30/18 11:59 LRN [id number]) Physical Therapy Assessment Goals Three Impairment postural dysfunction and poor habitual positioning Short Term Goal (STG) Patient to demonstrate good understanding of neutral postural alignment and be able to self-correct with min cues STG Duration 6 wks Warehouse Specialist Goal (LTG) Patient will make necessary changes in the home to allow for more neutral positioning of neck and be independent with postural correction LTG Duration 12 wks Two Impairment ROM Short Term Goal (STG) Improve neck ROM by 10 deg in both right rotation and right sidebending STG Duration 6 wks Jail Goal (LTG) Improve neck ROM to WNL without pain to allow patient to resume all prior activities One Impairment functional activities Short Term Goal (STG) Improve neck disability index score from 48 to 35 STG Duration 6wks Warehouse Specialist Goal (LTG) Improve neck disability index score to 20 to improve quality of life LTG Duration 12 wks Assessment Summary Assessment Pt is weak in UE's. Pt concern has been with decreasing neck pain; probably positionally based on sleeping since pain is worse in AM. Pt tightness in the neck is primarily on the L today. Physical Therapy Plan Frequency and Duration Frequency of Treatment 2x/Week Duration of Treatment 12 Plan of Care Start Date 04/08/18 Plan of Care End Date 07/06/18 Therapeutic Interventions Therapeutic Interventions Home Exercise Program Manual Therapy Patient/Caregiver Education Self-Care/Home Management Taping Therapeutic Activities Therapeutic Exercises Modalities Electric Stimulation Hot Packs Infrared Therapy Iontophoresis Traction- Mechanical Ultrasound Next Visit Focus/Plan Next Note Type Treatment Note Next Visit Plan Progress postural stabilization. Improve Cervical postural stability. Continue per primary therapist plan. Please Sign and Return: I have reviewed this Plan of Care and certify that the skilled therapy services above are required to meet the patient?s needs. Physician Signature Date Printed Name and Credentials Clinical Instructor Signature Printed Name and Credentials
--- NOTE | 2018-08-27 10:20 | PT.OPDS ---
Current Diagnoses Cervicalgia (04/30/18) Low back pain (04/30/18) Provider Visit Care Team Role Provider Type Sonu Walter MD Primary Care Provider Physician Specialty: Internal Medicine Address: [address] [place] [address], [id number] Email: Young Humphrey MD Family Provider Non-Staff Specialty: Medical Address: [address] [place] [address], [id number] Email: Rasheeda Jacob MD Attending Provider Physician Specialty: Internal Medicine Address: [address] [place], [address] Email: Visit Number Visit Number 7 Discharge Summary PT-OP-B Current Condition Start: 04/08/18 09:09 Freq: Status: Active Protocol: Document 04/08/18 11:15 SAK (Rec: 04/08/18 11:55 SAK [id number]) Current Condition History of Current Condition Onset Date 5 weeks ago Current Complaints 5 wk history of daily neck pain and migraines which limit her function History of Current Condition Denies any injury or trauma. Does report that no longer has recliner, but sits on couch to watch TV with right-sided rotation due to furniture arrangement. 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 Prior Treatments and Tests MRI; results in hospital records Treatment Goals Patient/Caregiver Goals Minimize or eliminate neck pain and headaches, decrease back pain all to allow her to return to usual activities. Prior Functional Status Baseline Function- ADL's Independent Baseline Function- Mobility Independent Baseline Function- Gait independent, no device Current Functional Impairments (Reported) Functional Limitations- ADL's difficulty turning neck, pain with reading, increased pain with houshold activities, decreased activity tolerance PT-OP-C Subjective Start: 04/08/18 08:29 Freq: Status: Active Protocol: Document 04/30/18 11:22 LRN (Rec: 04/30/18 11:59 LRN [id number]) OP-PT Subjective Patient Comments Patient Comments Needs to work on neck, back is coming along PT-OP-E Functional Tests Start: 04/08/18 09:09 Freq: Status: Active Protocol: Document 04/08/18 11:15 [facility] (Rec: 04/08/18 11:55 [facility] [id number]) Functional Tests Apley's Scratch Test Action 1: The subject is instructed to touch the opposite shoulder with his/her hand. This motion checks Glenohumeral adduction, internal rotation , horizontal adduction and scapular protraction Action 2: The subject is instructed to place his/her arm overhead and reach behind the neck to touch his/her upper back. This motion checks Glenohumeral abduction, external rotation and scapular upward rotation and elevation. Action 3: The subject puts his/her hand on the lower back and reaches upward as far as possible. This motion checks glenohumeral adduction, internal rotation and scapular retraction with downward rotation Action 1- Left post shld Action 1- Right post shld Action 2- Left T2 Action 2- Right T2 Action 3- Left T7 Action 3- Right T7 PT-OP-F Manual Assessment Start: 04/08/18 09:09 Freq: Status: Active Protocol: Document 04/08/18 11:15 [facility] (Rec: 04/08/18 11:55 [facility] [id number]) Manual Assessments Soft Tissue Assessment Soft Tissue Mobility Assessment Increased soft tissue tightness left UT, levator, scalenes, rhomboids Joint Mobility Assessment Joint Mobility Assessment Decreased movement C3-C6 PT-OP-H Neuro Start: 04/08/18 09:09 Freq: Status: Active Protocol: Document 04/08/18 10:30 [facility] (Rec: 04/08/18 11:56 [facility] [id number]) Sensation Evaluation Gross Sensation Gross Sensation WNL PT-OP-J Posture/Palpation/Skin Start: 04/08/18 09:09 Freq: Status: Active Protocol: Document 04/08/18 10:30 SAK (Rec: 04/08/18 11:58 [facility] [id number]) Posture Evaluation Position Sitting Head/C-Spine Posture Forward Head T-Spine Posture Increased Kyphosis L-Spine Posture Flattened Shoulder Posture (L) Rounded (R) Rounded Weight Distribution Decreased Wt.Bear on (R) PT-OP-K Range of Motion Start: 04/08/18 09:09 Freq: Status: Active Protocol: Document 04/08/18 10:30 [facility] (Rec: 04/08/18 12:13 [facility] [id number]) Cervical Spine Range of Motion Cervical Spine Active Testing Position Sitting Flexion 60 Extension 55 Rotation Left 65 Rotation Right 45 Lateral Flexion Left 65 Lateral Flexion Right 40 ROM Limitations Pain Lumbar Spine Range of Motion Lumbar Spine Active Testing Position standing ROM Limitations Pain Comments moderate limitations all motions, unable to extend beyond neutral PT-OP-M Strength Start: 04/08/18 09:09 Freq: Status: Active Protocol: Document 04/08/18 10:30 [facility] (Rec: 04/08/18 12:13 [facility] [id number]) Cervical Spine Strength Cervical Spine Manual Muscle Testing Testing Position Sitting Flexion (C1-2) 4+ Good+ Extension 4+ Good+ Rotation Left 4+ Good+ Rotation Right 4+ Good+ Lateral Flexion Left (C3) 4+ Good+ Lateral Flexion Right (C3) 4+ Good+ Comments Painful left with flexion PT-OP-T Assessment and Plan Start: 04/08/18 08:29 Freq: Status: Active Protocol: Document 08/27/18 10:18 [facility] (Rec: 08/27/18 10:20 [facility] [id number]) Physical Therapy Plan Discharge Physical Therapy Discharge Reasons No Longer Attending PT Discharge Comments Patient not seen in PT since ; primary PT was gone for extended illness, but once returned phone call to patient went unanswered. May benefit from further PT in the future . Unable to do discharge reassment.
== END 2018-09-02 12:40 ==
LOC: PHYS 11:15
PROVIDERS: Family Provider Internal Medicine Rheumatology; PCP Internal Medicine; Visit Provider Internal Medicine
DX: M54.2 Cervicalgia (principal); M54.5 Low back pain
CPT/HCPCS: 97010; 97012; 97110; 97140; 97162; 97535

== ENCOUNTER → 2020-11-05 14:42 | Outpatient (CLI) | payer MEDICARE, OTHER, SELFPAY | PROVIDERS: Family Provider Internal Medicine Rheumatology; PCP Internal Medicine; Referring Provider Internal Medicine; Visit Provider Internal Medicine | DX: M85.832 Other specified disorders of bone density and structure, left forearm (principal); Z78.0 Asymptomatic menopausal state; F10.20 Alcohol dependence, uncomplicated | CPT/HCPCS: 77080 ==

== ENCOUNTER 2021-03-05 08:15 | Outpatient (RCR) | payer MEDICARE, OTHER, SELFPAY ==
--- NOTE | 2021-01-18 16:56 | PT.OIE ---
Current Diagnoses Low back pain (01/18/21) Muscle weakness (generalized) (01/18/21) Iliotibial band syndrome, right leg (01/18/21) Other reduced mobility (01/18/21) Past Medical History (Last Reviewed 02/03/20 @ 22:49 by HERIBERTO Miles) Allergic rhinitis Anxiety Central sleep apnea Depression (~1980) Excessive daytime sleepiness Fibromyalgia GERD (gastroesophageal reflux disease) History of alcohol dependence Hypothyroidism (acquired) Obstructive sleep apnea of adult Osteoarthritis Primary insomnia Restless legs syndrome (RLS) Snoring Visit Care Team Role Provider Type Rasheeda Jacob MD Primary Care Provider Physician Specialty: Internal Medicine Address: [address] [place] [address], [id number] Email: [email or web address] Everett Cabrera MD Attending Provider Physician Referring Provider Specialty: Orthopedic Surgery Address: [address] [place] [address], [id number] Email: [email or web address] [facility] Initial Evaluation PT-OP-A Visit Information Start: 01/15/21 18:04 Freq: Status: Active Protocol: Document 01/18/21 10:30 LRN (Rec: 01/18/21 11:25 LRN [id number]) Out-Patient Physical Therapy Visit Information Visit Information Visit Type Initial Evaluation Visit Start Time 10:30 Visit Stop Time 11:23 Total Visit Minutes 53 Visit Number 1 Evaluation Information Evaluation Date 01/18/21 Precautions Precautions Osteopenia, OA in fingers, toes, depression controlled by meds, periodic migraines, neck and back pain, 2 right & 1 left shoulder surgerys (R acromioplasty, L removing cartilage), jina TKA (2011 & 2012), Lumbar surgery L2-5 fused 2011. Sleep apnea, mixed connective tissue disease, Chronic Kidney Disease stage 3B (1-5 stages), history of plantar fascities. New diagnosis: Monoclonal Gammopathy of unspecified/ undetermined significance ( plasma disorder that my progress to multiple myeloma). PT-OP-B Current Condition Start: 01/15/21 18:04 Freq: Status: Active Protocol: Document 01/18/21 10:30 LRN (Rec: 01/18/21 11:25 LRN [id number]) Current Condition History of Current Condition Onset Date 08/18/20 Current Complaints R hip, lateral thigh radiating into the low back and buttock . History of Current Condition Walking around the kitchen with sudden sharp R knee ( above, below, outside) pain and now has R lateral thigh and back pain. Also onset of neck pain since becoming more sedentary. States she has a PT referral for back pain written in August 2020 was from Edilia Calderon NP. Prior Treatments and Tests Dr. Cabrera referred for PT Future Testing and Treatments Planned Every 6 months gets inflammation levels and markers for autoimmune disease . Developmental History Developmental History Was walking 4 miles/day until 08/18/2020, then was walking around the kitchen with sudden sharp R knee (above, below, outside) pain. Saw Dr. Cabrera 12/30/20 and he diagnosed her with tight IT Band. She started to get R hip pain 2 weeks later, setting off all her lumbar pain. Has been sedentary since the knee pain started. Went on anti-inflammatory diet and now has only occasional fibromyalgia pain, but now has mixed connective tissue disease because of joint pain in hands/feet, and Sjogren symptoms of dry eyes, dry mouth. Lab results are negative for inflammation. Treatment Goals Patient/Caregiver Goals Recommendations for plantar fasciitis to help walking pattern. Pt goal is to walk with reduced or without pain. Prior Functional Status Baseline Function- ADL's Independent Baseline Function- Mobility Independent Baseline Function- Gait 3-4 miles daily, max 5 miles. Goal was to do 5 miles/day. Baseline Function- Other Was going through mother's possessions. Fell off ladder (5'up) and landed on back on a cushion ( last summer) but reports she didn't have a problem afterwards. Current Functional Impairments (Reported) Functional Limitations- ADL's Since pandemic sedentary ( watch TV, sews, paperwork). Hoping to go back to building cupboards when weather turns better. Functional Limitations- Mobility/Gait Started 3 days ago return to walking 3/4 mile and started to get sharp pains; therefore stopped. Functional Limitations- Other Vacuming daily hurts, but does it. Personal Factors Other Personal Factors That May Effect Lives alone. Therapy/Recovery PT-OP-C Subjective Start: 01/15/21 18:04 Freq: Status: Active Protocol: Document 02/26/21 10:30 LRN (Rec: 01/18/21 11:25 LRN [id number]) Patient Questionnaires Lower Extremity Functional Scale LEFS Score 45 LEFS Impairment 40 to 59% Impaired (Score 32- 47) OP-PT Pain Assessment Pain Assessment Grid Paper Pain Assessment Grid Completed Yes Location Right Buttock Pain Location Details Sitting has pain in R buttock that radiates to LB/thigh Intensity 6 Scale Used Numeric (0 - 10) Description Sharp,Shooting,Stabbing Pain Duration Sometimes ache, sharp with palpation, worse with movement Low Back pain Pain Location Details Low back Intensity 4 Scale Used Numeric (0 - 10) Description Aching,Dull Pain Duration Sharp with movement. constant ache R lateral thigh Pain Location Details R hip lateral thigh from knee to hip, radiates to LB/ buttocks Intensity 6 Scale Used Numeric (0 - 10) Description Sharp,Shooting,Stabbing Description- Other Sometimes ache, sharp with palpation, worse with movement Frequency Constant PT-OP-G Mobility & Gait Start: 01/15/21 18:04 Freq: Status: Active Protocol: Document 01/18/21 10:30 LRN (Rec: 01/18/21 11:25 LRN [id number]) OP Gait Assessment Gait Gait Assistance Required: Independent Able to Maintain Weight Bearing Status Yes During Gait Assistive Devices Assistive Device None Comments Gait Comments Slight excessive lateral shift of R hip with a non-painful gait. Stair Climbing Evaluation Comments Stair Climbing Comments Doesn't have stair. PT-OP-H Neuro Start: 01/15/21 18:04 Freq: Status: Active Protocol: Document 01/18/21 10:30 LRN (Rec: 01/18/21 11:25 LRN [id number]) Sensation Evaluation Gross Sensation Gross Sensation WNL PT-OP-J Posture/Palpation/Skin Start: 01/15/21 18:04 Freq: Status: Active Protocol: Document 01/18/21 10:30 LRN (Rec: 01/18/21 11:25 LRN [id number]) Posture Evaluation Position Standing L-Spine Posture Increased Lordosis Shoulder Posture Neutral Pelvis Posture Anteriorly Tilted Comments Posture Comments Stands forward on toes. Palpation Assessment Location R thigh Palpation Location IT Band Palpation Findings Tenderness R hip Palpation Location Greater trochanter & TFL ms Palpation Findings Tenderness Palpation Details Gluteal ms hypertrophy left hip compared to right. PT-OP-K Range of Motion Start: 01/15/21 18:04 Freq: Status: Active Protocol: Document 01/18/21 10:30 LRN (Rec: 01/18/21 11:25 LRN [id number]) Hip Goniometric Range of Motion Hip Left Passive Testing Position Supine Straight Leg Raise 45 Internal Rotation 30 External Rotation 65 Right Passive Testing Position Supine Straight Leg Raise 50 Internal Rotation 20 External Rotation 75 PT-OP-M Strength Start: 01/15/21 18:04 Freq: Status: Active Protocol: Document 01/18/21 10:30 LRN (Rec: 01/18/21 11:25 LRN [id number]) Hip Strength Hip Manual Muscle Testing Left Extension (S1) 4+ Good+ Abduction 5 Normal Adduction 2 Poor External Rotation 4+ Good+ Internal Rotation 4+ Good+ Right Flexion (L2) 4+ Good+ Extension (S1) 4- Good- Abduction 3 Fair Adduction 5 Normal External Rotation 4+ Good+ Internal Rotation 4+ Good+ Comments Dec trunk control with hip flex PT-OP-Q Treatments Start: 01/15/21 18:04 Freq: Status: Active Protocol: Document 01/18/21 10:30 LRN (Rec: 01/18/21 11:25 LRN [id number]) Therapeutic Exercises Sidelying Exercises TFL stretch Sidelying Exercise Name TFL stretch Side right Self-Care/Home Management Treatment Education Patient Education Pain Management Other Education Discussed results of evaluation, goals and plan of care. Discussed and educated pt in use of recommended appropriate modalities with discussion of use of cryotherapy vs heat. Discussed use of Theracane for use on trigger points of lateral R thigh. PT-OP-T Assessment and Plan Start: 01/15/21 18:04 Freq: Status: Active Protocol: Document 01/18/21 10:30 LRN (Rec: 01/18/21 11:25 LRN [id number]) Physical Therapy Assessment Rehab Potential Rehabilitation Potential Excellent Evaluation Complexity Number of Personal Factors/Comorbidities 3 or More Number of Body Systems Impaired 4 or More Clinical Presentation at Evaluation Evolving Impairments Impairments Activity Tolerance,Gait,Pain, ROM,Soft Tissue Mobility, Strength Goals Four Impairment Decreased R hip IR ROM (25 deg 's right, 30 deg's left) Short Term Goal (STG) Pt will be independent in ROM HEP to improve R hip IR and L hip ER PROM. STG Duration 02/15/21 Head Of Mathematics Goal (LTG) Pt will demonstrate symmetrical hip ER/IR PROM. LTG Duration 04/18/21 Three Impairment Pain in R LE limiting gait ability (hip/lat thigh/foot 6/ 10, low back 4/10) Short Term Goal (STG) Decrease pain with gait to no more than 3/10. STG Duration 02/15/21 Alf Goal (LTG) Pt will be able to return to walking 3-4 miles/day without increase in RLE pain. LTG Duration 04/18/21 Two Impairment Decreased R hip AB strength, limiting ability to walk for health. Short Term Goal (STG) Improve R hip AB strength to no less than 4/5. STG Duration 02/15/21 Head Of Mathematics Goal (LTG) Normal R hip strength improving gait tolerance to 3 miles/day walking. (Initial R hip strength: flex/ER/IR rot 4+/5, ext 4-/5, AB 3/5, AD 5/ 5). LTG Duration 04/18/21 One Impairment Lacks appropriate self care HEP. STG Duration 02/15/21 Head Of Mathematics Goal (LTG) Pt will be independent in a self care HEP. LTG Duration 04/18/21 Assessment Summary Assessment Pt is a 70 yo female with signs and symptoms of right TFL and IT-Band tightness, possible R Greater Trochanteric bursitis and lumbar dysfunction with lumbar spine in L rotation. The pt has become more sedentary causing increasing low back and neck pain, and recently complaints of tightening of her R plantar fascia (pt has history of plantar fascitis). She demonstrates asymmetry in hip mobility and strength, somewhat normal gait (as pt reports it is her normal), but reportedly an antalgic gait when pain in the R LE begins. The pt will benefit from skilled physical therapy to decrease R hip/LB/foot pain and to improve the symmetry of her hip mobility and strength , and improve core control and posture. Physical Therapy Plan Frequency and Duration Frequency of Treatment 2x/Week Plan of Care Start Date 01/18/21 Plan of Care End Date 04/18/21 Therapeutic Interventions Therapeutic Interventions Balance Training,Gait Training ,Home Exercise Program,Joint Mobilizations,Manual Therapy, Neuromuscular Re-education, Patient/Caregiver Education, Self-Care/Home Management,Soft Tissue Mobilization,Taping, Therapeutic Exercises Modalities Cold Pack/Ice Massage,Electric Stimulation,Hot Packs, Ultrasound Next Visit Focus/Plan Next Note Type Treatment Note Next Visit Plan STM R IT-Band/TFL, TFL/Lateral hip stretch, HEP of same, R Hip strengthening (flex, Ext, active hip AB, ER/IR), core strengthening. Assess LB involvement. Pt is to get clearance from oncologist for use of US or Ionto due to diagnosis of new connective tissue disorder.
--- NOTE | 2021-01-18 16:56 | PT.OPPOC ---
Physical, Occupational & Speech Therapy At [facility] Current Diagnoses Low back pain (01/18/21) Muscle weakness (generalized) (01/18/21) Iliotibial band syndrome, right leg (01/18/21) Other reduced mobility (01/18/21) Visit Care Team Role Provider Type Rasheeda Jacob MD Primary Care Provider Physician Specialty: Internal Medicine Address: [address] [place] [address], [id number] Email: [email or web address] Everett Cabrera MD Attending Provider Physician Referring Provider Specialty: Orthopedic Surgery Address: [address] [place] [address], [address] Email: [email or web address] Plan Of Care PT-OP-T Assessment and Plan Start: 01/15/21 18:04 Freq: Status: Active Protocol: Document 01/18/21 10:30 LRN (Rec: 01/18/21 11:25 LRN [id number]) Physical Therapy Assessment Rehab Potential Rehabilitation Potential Excellent Evaluation Complexity Number of Personal Factors/Comorbidities 3 or More Number of Body Systems Impaired 4 or More Clinical Presentation at Evaluation Evolving Impairments Impairments Activity Tolerance,Gait,Pain, ROM,Soft Tissue Mobility, Strength Goals Four Impairment Decreased R hip IR ROM (25 deg 's right, 30 deg's left) Short Term Goal (STG) Pt will be independent in ROM HEP to improve R hip IR and L hip ER PROM. STG Duration 02/15/21 Mcfp Goal (LTG) Pt will demonstrate symmetrical hip ER/IR PROM. LTG Duration 04/18/21 Three Impairment Pain in R LE limiting gait ability (hip/lat thigh/foot 6/ 10, low back 4/10) Short Term Goal (STG) Decrease pain with gait to no more than 3/10. STG Duration 02/15/21 Mortgage Branch Manager Goal (LTG) Pt will be able to return to walking 3-4 miles/day without increase in RLE pain. LTG Duration 04/18/21 Two Impairment Decreased R hip AB strength, limiting ability to walk for health. Short Term Goal (STG) Improve R hip AB strength to no less than 4/5. STG Duration 02/15/21 Mortgage Branch Manager Goal (LTG) Normal R hip strength improving gait tolerance to 3 miles/day walking. (Initial R hip strength: flex/ER/IR rot 4+/5, ext 4-/5, AB 3/5, AD 5/ 5). LTG Duration 04/18/21 One Impairment Lacks appropriate self care HEP. STG Duration 02/15/21 Mcfp Goal (LTG) Pt will be independent in a self care HEP. LTG Duration 04/18/21 Assessment Summary Assessment Pt is a 70 yo female with signs and symptoms of right TFL and IT-Band tightness, possible R Greater Trochanteric bursitis and lumbar dysfunction with lumbar spine in L rotation. The pt has become more sedentary causing increasing low back and neck pain, and recently complaints of tightening of her R plantar fascia (pt has history of plantar fascitis). She demonstrates asymmetry in hip mobility and strength, somewhat normal gait (as pt reports it is her normal), but reportedly an antalgic gait when pain in the R LE begins. The pt will benefit from skilled physical therapy to decrease R hip/LB/foot pain and to improve the symmetry of her hip mobility and strength , and improve core control and posture. Physical Therapy Plan Frequency and Duration Frequency of Treatment 2x/Week Plan of Care Start Date 01/18/21 Plan of Care End Date 04/18/21 Therapeutic Interventions Therapeutic Interventions Balance Training,Gait Training ,Home Exercise Program,Joint Mobilizations,Manual Therapy, Neuromuscular Re-education, Patient/Caregiver Education, Self-Care/Home Management,Soft Tissue Mobilization,Taping, Therapeutic Exercises Modalities Cold Pack/Ice Massage,Electric Stimulation,Hot Packs, Ultrasound Next Visit Focus/Plan Next Note Type Treatment Note Next Visit Plan STM R IT-Band/TFL, TFL/Lateral hip stretch, HEP of same, R Hip strengthening (flex, Ext, active hip AB, ER/IR), core strengthening. Assess LB involvement. Pt is to get clearance from oncologist for use of US or Ionto due to diagnosis of new connective tissue disorder. Plan of Care Dates Plan of Care Start Date 01/18/21 Plan of Care End Date 04/18/21 Electronically Signed by: Elza Reyes, PT 01/18/21 [id number] Please Sign and Return: I have reviewed this Plan of Care and certify that the skilled therapy services above are required to meet the patient?s needs. Physician Signature Date Printed Name and Credentials Clinical Instructor Signature Printed Name and Credentials
--- NOTE | 2021-01-22 09:06 | PT.OTN ---
Current Diagnoses Low back pain (01/22/21) Muscle weakness (generalized) (01/22/21) Iliotibial band syndrome, right leg (01/22/21) Other reduced mobility (01/22/21) Physical Therapy Treatment Note PT-OP-A Visit Information Start: 01/15/21 18:04 Freq: Status: Active Protocol: Document 01/22/21 08:16 LRN (Rec: 01/22/21 09:01 LRN [id number]) Out-Patient Physical Therapy Visit Information Visit Information Visit Type Treatment Note Visit Start Time 08:16 Visit Stop Time 08:55 Total Visit Minutes 39 Visit Number 2 Evaluation Information Evaluation Date 01/18/21 Precautions Precautions Osteopenia, OA in fingers, toes, depression controlled by meds, periodic migraines, neck and back pain, 2 right & 1 left shoulder surgerys (R acromioplasty, L removing cartilage), jina TKA (2011 & 2012), Lumbar surgery L2-5 fused 2011. Sleep apnea, mixed connective tissue disease, Chronic Kidney Disease stage 3B (1-5 stages), history of plantar fascities. New diagnosis: Monoclonal Gammopathy of unspecified/ undetermined significance ( plasma disorder that my progress to multiple myeloma). PT-OP-B Current Condition Start: 01/15/21 18:04 Freq: Status: Active Protocol: Document 01/18/21 10:30 LRN (Rec: 01/18/21 11:25 LRN [id number]) Current Condition History of Current Condition Onset Date 08/18/20 Current Complaints R hip, lateral thigh radiating into the low back and buttock . History of Current Condition Walking around the kitchen with sudden sharp R knee ( above, below, outside) pain and now has R lateral thigh and back pain. Also onset of neck pain since becoming more sedentary. States she has a PT referral for back pain written in August 2020 was from Edilia Calderon NP. Prior Treatments and Tests Dr. Cabrera referred for PT Future Testing and Treatments Planned Every 6 months gets inflammation levels and markers for autoimmune disease . Developmental History Developmental History Was walking 4 miles/day until 08/18/2020, then was walking around the kitchen with sudden sharp R knee (above, below, outside) pain. Saw Dr. Cabrera 12/30/20 and he diagnosed her with tight IT Band. She started to get R hip pain 2 weeks later, setting off all her lumbar pain. Has been sedentary since the knee pain started. Went on anti-inflammatory diet and now has only occasional fibromyalgia pain, but now has mixed connective tissue disease because of joint pain in hands/feet, and Sjogren symptoms of dry eyes, dry mouth. Lab results are negative for inflammation. Treatment Goals Patient/Caregiver Goals Recommendations for plantar fasciitis to help walking pattern. Pt goal is to walk with reduced or without pain. Prior Functional Status Baseline Function- ADL's Independent Baseline Function- Mobility Independent Baseline Function- Gait 3-4 miles daily, max 5 miles. Goal was to do 5 miles/day. Baseline Function- Other Was going through mother's possessions. Fell off ladder (5'up) and landed on back on a cushion ( last summer) but reports she didn't have a problem afterwards. Current Functional Impairments (Reported) Functional Limitations- ADL's Since pandemic sedentary ( watch TV, sews, paperwork). Hoping to go back to building cupboards when weather turns better. Functional Limitations- Mobility/Gait Started 3 days ago return to walking 3/4 mile and started to get sharp pains; therefore stopped. Functional Limitations- Other Vacuming daily hurts, but does it. Personal Factors Other Personal Factors That May Effect Lives alone. Therapy/Recovery PT-OP-C Subjective Start: 01/15/21 18:04 Freq: Status: Active Protocol: Document 01/22/21 08:16 LRN (Rec: 01/22/21 09:01 LRN [id number]) OP-PT Subjective Patient Comments Patient Comments Using Theracane and might have bruised self, seemed to help at the time. Walking around the house hurts the hip. Pain 07/02 to start ending 01/30. PT-OP-G Mobility & Gait Start: 01/15/21 18:04 Freq: Status: Active Protocol: Document 01/18/21 10:30 LRN (Rec: 01/18/21 11:25 LRN [id number]) OP Gait Assessment Gait Gait Assistance Required: Independent Able to Maintain Weight Bearing Status Yes During Gait Assistive Devices Assistive Device None Comments Gait Comments Slight excessive lateral shift of R hip with a non-painful gait. Stair Climbing Evaluation Comments Stair Climbing Comments Doesn't have stair. PT-OP-H Neuro Start: 01/15/21 18:04 Freq: Status: Active Protocol: Document 01/18/21 10:30 LRN (Rec: 01/18/21 11:25 LRN [id number]) Sensation Evaluation Gross Sensation Gross Sensation WNL PT-OP-J Posture/Palpation/Skin Start: 01/15/21 18:04 Freq: Status: Active Protocol: Document 01/18/21 10:30 LRN (Rec: 01/18/21 11:25 LRN [id number]) Posture Evaluation Position Standing L-Spine Posture Increased Lordosis Shoulder Posture Neutral Pelvis Posture Anteriorly Tilted Comments Posture Comments Stands forward on toes. Palpation Assessment Location R thigh Palpation Location IT Band Palpation Findings Tenderness R hip Palpation Location Greater trochanter & TFL ms Palpation Findings Tenderness Palpation Details Gluteal ms hypertrophy left hip compared to right. PT-OP-K Range of Motion Start: 01/15/21 18:04 Freq: Status: Active Protocol: Document 01/18/21 10:30 LRN (Rec: 01/18/21 11:25 LRN [id number]) Hip Goniometric Range of Motion Hip Left Passive Testing Position Supine Straight Leg Raise 45 Internal Rotation 30 External Rotation 65 Right Passive Testing Position Supine Straight Leg Raise 50 Internal Rotation 20 External Rotation 75 PT-OP-M Strength Start: 01/15/21 18:04 Freq: Status: Active Protocol: Document 01/18/21 10:30 LRN (Rec: 01/18/21 11:25 LRN [id number]) Hip Strength Hip Manual Muscle Testing Left Extension (S1) 4+ Good+ Abduction 5 Normal Adduction 2 Poor External Rotation 4+ Good+ Internal Rotation 4+ Good+ Right Flexion (L2) 4+ Good+ Extension (S1) 4- Good- Abduction 3 Fair Adduction 5 Normal External Rotation 4+ Good+ Internal Rotation 4+ Good+ Comments Dec trunk control with hip flex PT-OP-Q Treatments Start: 01/15/21 18:04 Freq: Status: Active Protocol: Document 01/22/21 08:16 LRN (Rec: 01/22/21 09:01 LRN [id number]) Therapeutic Exercises Supine Exercises Lateral Hip stretch Supine Exercise Name Lateral Hip stretch Side bilateral Reps/Minutes 5' Sidelying Exercises TFL stretch Sidelying Exercise Name TFL stretch, f/b active stretch Side right Reps/Minutes 4' Comments Pt needed training for proper positioning Manual Therapy Treatment Soft Tissue Mobilization R TFL Body Location R TFL muscle Mobilization Type Trigger Point Release Intensity/Depth Superficial Body Position Sidelying Comments 35' - Many active Trp points Self-Care/Home Management Treatment Education Patient Education Home Exercise Program Other Education Educated pt in proper self Trp release treatment to R TFL & IT Band. Activities Self-Care/Home Management Activities Issued & reviewed HEP: STRETCHES: *R TFL, *Lateral Hip PT-OP-T Assessment and Plan Start: 01/15/21 18:04 Freq: Status: Active Protocol: Document 01/22/21 08:16 LRN (Rec: 01/22/21 09:01 LRN [id number]) Physical Therapy Assessment Goals Three Impairment Pain in R LE limiting gait ability (hip/lat thigh/foot 6/ 10, low back 4/10) Short Term Goal (STG) Decrease pain with gait to no more than 3/10. STG Duration 02/15/21 Skilled Nursing Goal (LTG) Pt will be able to return to walking 3-4 miles/day without increase in RLE pain. LTG Duration 04/18/21 Two Impairment Decreased R hip AB strength, limiting ability to walk for health. Short Term Goal (STG) Improve R hip AB strength to no less than 4/5. STG Duration 02/15/21 Skilled Nursing Goal (LTG) Normal R hip strength improving gait tolerance to 3 miles/day walking. (Initial R hip strength: flex/ER/IR rot 4+/5, ext 4-/5, AB 3/5, AD 5/ 5). LTG Duration 04/18/21 One Impairment Lacks appropriate self care HEP. STG Duration 02/15/21 Collections Representative Goal (LTG) Pt will be independent in a self care HEP. ISSUED TO DATE: STRETCHES: *R TFL, *Lateral Hip LTG Duration 04/18/21 (01/22/21: Progressing) Progress Towards Goals Progress Comments Pain in R lateral hip decreased from 8/10 to start to 3/10 post treatment. Assessment Summary Assessment 1st trigger point treated took most time to relax, but pt responded quicker afterward. Possible lypoma in the ms belly of R TFL along anterior border. + response to treatment with pain lessening. Physical Therapy Plan Frequency and Duration Frequency of Treatment 2x/Week Plan of Care Start Date 01/18/21 Plan of Care End Date 04/18/21 Next Visit Focus/Plan Next Note Type Treatment Note Next Visit Plan Assess response to STM R IT- Band and Trp self treatments; review R TFL/Lateral hip stretch; add R Hip strengthening (flex, Ext, active hip AB, ER/IR), core strengthening. Assess LB involvement. Pt is to get clearance from oncologist for use of US or Ionto due to diagnosis of new connective tissue disorder.
--- NOTE | 2021-01-24 09:08 | PT.OTN ---
Current Diagnoses Low back pain (01/24/21) Muscle weakness (generalized) (01/24/21) Iliotibial band syndrome, right leg (01/24/21) Other reduced mobility (01/24/21) Physical Therapy Treatment Note PT-OP-A Visit Information Start: 01/15/21 18:04 Freq: Status: Active Protocol: Document 01/24/21 08:19 LRN (Rec: 01/24/21 09:04 LRN [id number]) Out-Patient Physical Therapy Visit Information Visit Information Visit Type Treatment Note Visit Start Time 08:19 Visit Stop Time 09:02 Total Visit Minutes 43 Visit Number 3 Evaluation Information Evaluation Date 01/18/21 Precautions Precautions Osteopenia, OA in fingers, toes, depression controlled by meds, periodic migraines, neck and back pain, 2 right & 1 left shoulder surgerys (R acromioplasty, L removing cartilage), jina TKA (2011 & 2012), Lumbar surgery L2-5 fused 2011. Sleep apnea, mixed connective tissue disease, Chronic Kidney Disease stage 3B (1-5 stages), history of plantar fascities. New diagnosis: Monoclonal Gammopathy of unspecified/ undetermined significance ( plasma disorder that my progress to multiple myeloma). PT-OP-B Current Condition Start: 01/15/21 18:04 Freq: Status: Active Protocol: Document 01/18/21 10:30 LRN (Rec: 01/18/21 11:25 LRN [id number]) Current Condition History of Current Condition Onset Date 08/18/20 Current Complaints R hip, lateral thigh radiating into the low back and buttock . History of Current Condition Walking around the kitchen with sudden sharp R knee ( above, below, outside) pain and now has R lateral thigh and back pain. Also onset of neck pain since becoming more sedentary. States she has a PT referral for back pain written in August 2020 was from Edilia Calderon NP. Prior Treatments and Tests Dr. Cabrera referred for PT Future Testing and Treatments Planned Every 6 months gets inflammation levels and markers for autoimmune disease . Developmental History Developmental History Was walking 4 miles/day until 08/18/2020, then was walking around the kitchen with sudden sharp R knee (above, below, outside) pain. Saw Dr. Cabrera 12/30/20 and he diagnosed her with tight IT Band. She started to get R hip pain 2 weeks later, setting off all her lumbar pain. Has been sedentary since the knee pain started. Went on anti-inflammatory diet and now has only occasional fibromyalgia pain, but now has mixed connective tissue disease because of joint pain in hands/feet, and Sjogren symptoms of dry eyes, dry mouth. Lab results are negative for inflammation. Treatment Goals Patient/Caregiver Goals Recommendations for plantar fasciitis to help walking pattern. Pt goal is to walk with reduced or without pain. Prior Functional Status Baseline Function- ADL's Independent Baseline Function- Mobility Independent Baseline Function- Gait 3-4 miles daily, max 5 miles. Goal was to do 5 miles/day. Baseline Function- Other Was going through mother's possessions. Fell off ladder (5'up) and landed on back on a cushion ( last summer) but reports she didn't have a problem afterwards. Current Functional Impairments (Reported) Functional Limitations- ADL's Since pandemic sedentary ( watch TV, sews, paperwork). Hoping to go back to building cupboards when weather turns better. Functional Limitations- Mobility/Gait Started 3 days ago return to walking 3/4 mile and started to get sharp pains; therefore stopped. Functional Limitations- Other Vacuming daily hurts, but does it. Personal Factors Other Personal Factors That May Effect Lives alone. Therapy/Recovery PT-OP-C Subjective Start: 01/15/21 18:04 Freq: Status: Active Protocol: Document 01/24/21 08:19 LRN (Rec: 01/24/21 09:04 LRN [id number]) OP-PT Subjective Patient Comments Patient Comments States light pressure self treatments have been working, ex's has made muscles sore ( insde of R knee) and low back and buttocks hurtting more, so she backed off. PT-OP-G Mobility & Gait Start: 01/15/21 18:04 Freq: Status: Active Protocol: Document 01/18/21 10:30 LRN (Rec: 01/18/21 11:25 LRN [id number]) OP Gait Assessment Gait Gait Assistance Required: Independent Able to Maintain Weight Bearing Status Yes During Gait Assistive Devices Assistive Device None Comments Gait Comments Slight excessive lateral shift of R hip with a non-painful gait. Stair Climbing Evaluation Comments Stair Climbing Comments Doesn't have stair. PT-OP-H Neuro Start: 01/15/21 18:04 Freq: Status: Active Protocol: Document 01/18/21 10:30 LRN (Rec: 01/18/21 11:25 LRN [id number]) Sensation Evaluation Gross Sensation Gross Sensation WNL PT-OP-J Posture/Palpation/Skin Start: 01/15/21 18:04 Freq: Status: Active Protocol: Document 01/18/21 10:30 LRN (Rec: 01/18/21 11:25 LRN [id number]) Posture Evaluation Position Standing L-Spine Posture Increased Lordosis Shoulder Posture Neutral Pelvis Posture Anteriorly Tilted Comments Posture Comments Stands forward on toes. Palpation Assessment Location R thigh Palpation Location IT Band Palpation Findings Tenderness R hip Palpation Location Greater trochanter & TFL ms Palpation Findings Tenderness Palpation Details Gluteal ms hypertrophy left hip compared to right. PT-OP-K Range of Motion Start: 01/15/21 18:04 Freq: Status: Active Protocol: Document 01/18/21 10:30 LRN (Rec: 01/18/21 11:25 LRN [id number]) Hip Goniometric Range of Motion Hip Left Passive Testing Position Supine Straight Leg Raise 45 Internal Rotation 30 External Rotation 65 Right Passive Testing Position Supine Straight Leg Raise 50 Internal Rotation 20 External Rotation 75 PT-OP-M Strength Start: 01/15/21 18:04 Freq: Status: Active Protocol: Document 01/18/21 10:30 LRN (Rec: 01/18/21 11:25 LRN [id number]) Hip Strength Hip Manual Muscle Testing Left Extension (S1) 4+ Good+ Abduction 5 Normal Adduction 2 Poor External Rotation 4+ Good+ Internal Rotation 4+ Good+ Right Flexion (L2) 4+ Good+ Extension (S1) 4- Good- Abduction 3 Fair Adduction 5 Normal External Rotation 4+ Good+ Internal Rotation 4+ Good+ Comments Dec trunk control with hip flex PT-OP-Q Treatments Start: 01/15/21 18:04 Freq: Status: Active Protocol: Document 01/24/21 08:19 LRN (Rec: 01/24/21 09:04 LRN [id number]) Therapeutic Exercises Supine Exercises Bridge Supine Exercise Name Bridge Reps/Minutes 10x Comments Discussed/reviewed goal of ex Stretch to Hip AD's Supine Exercise Name Stretch into Hip R, then L AB f/b active stretch Side bilateral Reps/Minutes 8' Comments Extra time for training, 1' stretch f/b active stretch. Lateral Hip stretch Supine Exercise Name Lateral Hip stretch Side bilateral Reps/Minutes 5' Prone Exercises Hip ext Prone Exercise Name Active hip ext Side bilateral Reps/Minutes 5x 2 Comments Pt moves slowly, extra time for core stab training. Sidelying Exercises TFL stretch Sidelying Exercise Name TFL stretch, f/b active stretch Side right Reps/Minutes 9' Comments Pt needed training for proper positioning Self-Care/Home Management Treatment Education Patient Education Home Exercise Program Activities Self-Care/Home Management Activities Issued & reviewed HEP: Hip ADD stretch, BKFO, bridge, hip ext in prone. Extra time taken for review. PT-OP-T Assessment and Plan Start: 01/15/21 18:04 Freq: Status: Active Protocol: Document 01/24/21 08:19 LRN (Rec: 01/24/21 09:04 LRN [id number]) Physical Therapy Assessment Goals Four Impairment Decreased R hip IR ROM (25 deg 's right, 30 deg's left) Short Term Goal (STG) Pt will be independent in ROM HEP to improve R hip IR and L hip ER PROM. STG Duration 02/15/21 Residential Goal (LTG) Pt will demonstrate symmetrical hip ER/IR PROM. LTG Duration 04/18/21 Three Impairment Pain in R LE limiting gait ability (hip/lat thigh/foot 6/ 10, low back 4/10) Short Term Goal (STG) Decrease pain with gait to no more than 3/10. (01/24/21: Walked yesterday without pain) STG Duration 02/15/21 Advertising Solicitor Goal (LTG) Pt will be able to return to walking 3-4 miles/day without increase in RLE pain. (01/24/21: Walked 1/2 mile without lateral leg pain) LTG Duration 04/18/21 Two Impairment Decreased R hip AB strength, limiting ability to walk for health. Short Term Goal (STG) Improve R hip AB strength to no less than 4/5. STG Duration 02/15/21 Advertising Solicitor Goal (LTG) Normal R hip strength improving gait tolerance to 3 miles/day walking. (Initial R hip strength: flex/ER/IR rot 4+/5, ext 4-/5, AB 3/5, AD 5/ 5). LTG Duration 04/18/21 One Impairment Lacks appropriate self care HEP. STG Duration 02/15/21 Advertising Solicitor Goal (LTG) Pt will be independent in a self care HEP. ISSUED TO DATE: STRETCHES: *R TFL, *Lateral Hip, *Hip ADD stretch STRENGTHENING: *BKFO, *Bridge , *Prone Hip ext LTG Duration 04/18/21 (01/22/21: Progressing) Progress Towards Goals Progress Towards Goals Progressing Toward Goals Progress Comments Able to walk one day 1/2 mile without R hip/leg pain. Assessment Summary Assessment + response to STM of Trp treatment. Walked 1/2 mile without Iliotibial pain. Able to stretch comfortably after review & training. Pt appears to have a good understanding of new HEP. Physical Therapy Plan Frequency and Duration Frequency of Treatment 2x/Week Plan of Care Start Date 01/18/21 Plan of Care End Date 04/18/21 Next Visit Focus/Plan Next Note Type Treatment Note Next Visit Plan eview R Hip ex's issued, add hip flex, ER/IR strengthening) , core strengthening. Assess LB involvement. Pt is to get clearance from oncologist for use of US or Ionto due to diagnosis of new connective tissue disorder.
--- NOTE | 2021-01-28 13:11 | PT.OTN ---
Current Diagnoses Low back pain (01/28/21) Muscle weakness (generalized) (01/28/21) Iliotibial band syndrome, right leg (01/28/21) Other reduced mobility (01/28/21) Physical Therapy Treatment Note PT-OP-A Visit Information Start: 01/15/21 18:04 Freq: Status: Active Protocol: Document 01/28/21 10:45 LRN (Rec: 01/28/21 11:32 LRN [id number]) Out-Patient Physical Therapy Visit Information Visit Information Visit Type Treatment Note Visit Start Time 10:45 Visit Stop Time 11:40 Total Visit Minutes 55 Visit Number 4 Evaluation Information Evaluation Date 01/18/21 Precautions Precautions Osteopenia, OA in fingers, toes, depression controlled by meds, periodic migraines, neck and back pain, 2 right & 1 left shoulder surgerys (R acromioplasty, L removing cartilage), jina TKA (2011 & 2012), Lumbar surgery L2-5 fused 2011. Sleep apnea, mixed connective tissue disease, Chronic Kidney Disease stage 3B (1-5 stages), history of plantar fascities. New diagnosis: Monoclonal Gammopathy of unspecified/ undetermined significance ( plasma disorder that my progress to multiple myeloma). PT-OP-B Current Condition Start: 01/15/21 18:04 Freq: Status: Active Protocol: Document 01/18/21 10:30 LRN (Rec: 01/18/21 11:25 LRN [id number]) Current Condition History of Current Condition Onset Date 08/18/20 Current Complaints R hip, lateral thigh radiating into the low back and buttock . History of Current Condition Walking around the kitchen with sudden sharp R knee ( above, below, outside) pain and now has R lateral thigh and back pain. Also onset of neck pain since becoming more sedentary. States she has a PT referral for back pain written in August 2020 was from Edilia Calderon NP. Prior Treatments and Tests Dr. Cabrera referred for PT Future Testing and Treatments Planned Every 6 months gets inflammation levels and markers for autoimmune disease . Developmental History Developmental History Was walking 4 miles/day until 08/18/2020, then was walking around the kitchen with sudden sharp R knee (above, below, outside) pain. Saw Dr. Cabrera 12/30/20 and he diagnosed her with tight IT Band. She started to get R hip pain 2 weeks later, setting off all her lumbar pain. Has been sedentary since the knee pain started. Went on anti-inflammatory diet and now has only occasional fibromyalgia pain, but now has mixed connective tissue disease because of joint pain in hands/feet, and Sjogren symptoms of dry eyes, dry mouth. Lab results are negative for inflammation. Treatment Goals Patient/Caregiver Goals Recommendations for plantar fasciitis to help walking pattern. Pt goal is to walk with reduced or without pain. Prior Functional Status Baseline Function- ADL's Independent Baseline Function- Mobility Independent Baseline Function- Gait 3-4 miles daily, max 5 miles. Goal was to do 5 miles/day. Baseline Function- Other Was going through mother's possessions. Fell off ladder (5'up) and landed on back on a cushion ( last summer) but reports she didn't have a problem afterwards. Current Functional Impairments (Reported) Functional Limitations- ADL's Since pandemic sedentary ( watch TV, sews, paperwork). Hoping to go back to building cupboards when weather turns better. Functional Limitations- Mobility/Gait Started 3 days ago return to walking 3/4 mile and started to get sharp pains; therefore stopped. Functional Limitations- Other Vacuming daily hurts, but does it. Personal Factors Other Personal Factors That May Effect Lives alone. Therapy/Recovery PT-OP-C Subjective Start: 01/15/21 18:04 Freq: Status: Active Protocol: Document 01/28/21 10:45 LRN (Rec: 01/28/21 11:32 LRN [id number]) OP-PT Subjective Patient Comments Patient Comments More knee pain over the weekend. Will walk later today,pressure trick works for the lateral knee. PT-OP-G Mobility & Gait Start: 01/15/21 18:04 Freq: Status: Active Protocol: Document 01/18/21 10:30 LRN (Rec: 01/18/21 11:25 LRN [id number]) OP Gait Assessment Gait Gait Assistance Required: Independent Able to Maintain Weight Bearing Status Yes During Gait Assistive Devices Assistive Device None Comments Gait Comments Slight excessive lateral shift of R hip with a non-painful gait. Stair Climbing Evaluation Comments Stair Climbing Comments Doesn't have stair. PT-OP-H Neuro Start: 01/15/21 18:04 Freq: Status: Active Protocol: Document 01/18/21 10:30 LRN (Rec: 01/18/21 11:25 LRN [id number]) Sensation Evaluation Gross Sensation Gross Sensation WNL PT-OP-J Posture/Palpation/Skin Start: 01/15/21 18:04 Freq: Status: Active Protocol: Document 01/18/21 10:30 LRN (Rec: 01/18/21 11:25 LRN [id number]) Posture Evaluation Position Standing L-Spine Posture Increased Lordosis Shoulder Posture Neutral Pelvis Posture Anteriorly Tilted Comments Posture Comments Stands forward on toes. Palpation Assessment Location R thigh Palpation Location IT Band Palpation Findings Tenderness R hip Palpation Location Greater trochanter & TFL ms Palpation Findings Tenderness Palpation Details Gluteal ms hypertrophy left hip compared to right. PT-OP-K Range of Motion Start: 01/15/21 18:04 Freq: Status: Active Protocol: Document 01/18/21 10:30 LRN (Rec: 01/18/21 11:25 LRN [id number]) Hip Goniometric Range of Motion Hip Left Passive Testing Position Supine Straight Leg Raise 45 Internal Rotation 30 External Rotation 65 Right Passive Testing Position Supine Straight Leg Raise 50 Internal Rotation 20 External Rotation 75 PT-OP-M Strength Start: 01/15/21 18:04 Freq: Status: Active Protocol: Document 01/18/21 10:30 LRN (Rec: 01/18/21 11:25 LRN [id number]) Hip Strength Hip Manual Muscle Testing Left Extension (S1) 4+ Good+ Abduction 5 Normal Adduction 2 Poor External Rotation 4+ Good+ Internal Rotation 4+ Good+ Right Flexion (L2) 4+ Good+ Extension (S1) 4- Good- Abduction 3 Fair Adduction 5 Normal External Rotation 4+ Good+ Internal Rotation 4+ Good+ Comments Dec trunk control with hip flex PT-OP-Q Treatments Start: 01/15/21 18:04 Freq: Status: Active Protocol: Document 01/28/21 10:45 LRN (Rec: 01/28/21 11:32 LRN [id number]) Therapeutic Exercises Supine Exercises TA/SLR Supine Exercise Name TA/SLR Side bilateral Reps/Minutes 10x each Hip AB Supine Exercise Name Active Hip AB Side right Reps/Minutes 10x 2 Comments No complaints of pain, initial review needed. BKFO Supine Exercise Name BKFO Side bilateral Reps/Minutes 10x Comments Stopped due to R hip pain. Bridge Supine Exercise Name Bridge Reps/Minutes 10x Comments Adjustments to positioning needed through ex Stretch to Hip AD's Supine Exercise Name BKFO hip AD stretch Reps/Minutes 30 x 2, f/b active stretch Lateral Hip stretch Supine Exercise Name Lateral Hip stretch Side bilateral Reps/Minutes 5' Prone Exercises Hip ext Prone Exercise Name Active hip ext Side bilateral Reps/Minutes 5x 2 prone, 5x2 w/pillow under hips Comments Pt moves slowly, extra time for core stab training. Manual Therapy Treatment Soft Tissue Mobilization R IT-Band Body Location R IT-Band Mobilization Type Instrument Assisted Intensity/Depth Superficial Body Position Sidelying R TFL Body Location R TFL Mobilization Type Instrument Assisted Intensity/Depth Moderate Body Position Sidelying PT-OP-R Modalities Start: 01/15/21 18:04 Freq: Status: Active Protocol: Document 01/28/21 10:45 LRN (Rec: 01/28/21 11:32 LRN [id number]) Hot Pack/Cold Pack Treatment Cold Pack Location Low back Patient Position Supine Treatment Duration (minutes) 10 PT-OP-T Assessment and Plan Start: 01/15/21 18:04 Freq: Status: Active Protocol: Document 01/28/21 10:45 LRN (Rec: 01/28/21 11:32 LRN [id number]) Physical Therapy Assessment Goals Four Impairment Decreased R hip IR ROM (25 deg 's right, 30 deg's left) Short Term Goal (STG) Pt will be independent in ROM HEP to improve R hip IR and L hip ER PROM. STG Duration 02/15/21 Assisted Goal (LTG) Pt will demonstrate symmetrical hip ER/IR PROM. LTG Duration 04/18/21 Three Impairment Pain in R LE limiting gait ability (hip/lat thigh/foot 10, low back 10) Short Term Goal (STG) Decrease pain with gait to no more than 3/10. (01/24/21: Walked yesterday without pain) STG Duration 02/15/21 Assisted Goal (LTG) Pt will be able to return to walking 3-4 miles/day without increase in RLE pain. (01/24/21: Walked 1/2 mile without lateral leg pain) LTG Duration 04/18/21 Two Impairment Decreased R hip AB strength, limiting ability to walk for health. Short Term Goal (STG) Improve R hip AB strength to no less than 4/5. STG Duration 02/15/21 Income Tax Return Preparer Goal (LTG) Normal R hip strength improving gait tolerance to 3 miles/day walking. (Initial R hip strength: flex/ER/IR rot 4+/5, ext 4-/5, AB 3/5, AD 5/ 5). LTG Duration 04/18/21 One Impairment Lacks appropriate self care HEP. STG Duration 02/15/21 Income Tax Return Preparer Goal (LTG) Pt will be independent in a self care HEP. ISSUED TO DATE: STRETCHES: *R TFL, *Lateral Hip, *Hip ADD stretch STRENGTHENING: *BKFO, *Bridge , *Prone Hip ext LTG Duration 04/18/21 (01/22/21: Progressing) Assessment Summary Assessment 70 yo female with signs and symptoms of right TFL and IT- Band tightness, possible R Greater Trochanteric bursitis and lumbar dysfunction with lumbar spine in L rotation. Treatments limited due to groin skin condition and facial basal cell carcinoma history. Prone ext limited due to LBP. Physical Therapy Plan Frequency and Duration Frequency of Treatment 2x/Week Plan of Care Start Date 01/18/21 Plan of Care End Date 04/18/21 Next Visit Focus/Plan Next Note Type Treatment Note Next Visit Plan Add hip flex ex, ER/IR strengthening), core strengthening. Assess LB involvement. Pt is to get clearance from oncologist for use of US or Ionto due to diagnosis of new connective tissue disorder.
--- NOTE | 2021-02-05 09:59 | PT.OTN ---
Current Diagnoses Low back pain (02/05/21) Muscle weakness (generalized) (02/05/21) Iliotibial band syndrome, right leg (02/05/21) Other reduced mobility (02/05/21) Physical Therapy Treatment Note PT-OP-A Visit Information Start: 01/15/21 18:04 Freq: Status: Active Protocol: Document 02/05/21 08:17 LRN (Rec: 02/05/21 09:07 LRN [id number]) Out-Patient Physical Therapy Visit Information Visit Information Visit Type Treatment Note Visit Start Time 08:17 Visit Stop Time 09:05 Total Visit Minutes 48 Visit Number 5 Evaluation Information Evaluation Date 01/18/21 Precautions Precautions Osteopenia, OA in fingers, toes, depression controlled by meds, periodic migraines, neck and back pain, 2 right & 1 left shoulder surgerys (R acromioplasty, L removing cartilage), jina TKA (2011 & 2012), Lumbar surgery L2-5 fused 2011. Sleep apnea, mixed connective tissue disease, Chronic Kidney Disease stage 3B (1-5 stages), history of plantar fascities. New diagnosis: Monoclonal Gammopathy of unspecified/ undetermined significance ( plasma disorder that my progress to multiple myeloma). PT-OP-B Current Condition Start: 01/15/21 18:04 Freq: Status: Active Protocol: Document 01/18/21 10:30 LRN (Rec: 01/18/21 11:25 LRN [id number]) Current Condition History of Current Condition Onset Date 08/18/20 Current Complaints R hip, lateral thigh radiating into the low back and buttock . History of Current Condition Walking around the kitchen with sudden sharp R knee ( above, below, outside) pain and now has R lateral thigh and back pain. Also onset of neck pain since becoming more sedentary. States she has a PT referral for back pain written in August 2020 was from Edilia Calderon NP. Prior Treatments and Tests Dr. Cabrera referred for PT Future Testing and Treatments Planned Every 6 months gets inflammation levels and markers for autoimmune disease . Developmental History Developmental History Was walking 4 miles/day until 08/18/2020, then was walking around the kitchen with sudden sharp R knee (above, below, outside) pain. Saw Dr. Cabrera 12/30/20 and he diagnosed her with tight IT Band. She started to get R hip pain 2 weeks later, setting off all her lumbar pain. Has been sedentary since the knee pain started. Went on anti-inflammatory diet and now has only occasional fibromyalgia pain, but now has mixed connective tissue disease because of joint pain in hands/feet, and Sjogren symptoms of dry eyes, dry mouth. Lab results are negative for inflammation. Treatment Goals Patient/Caregiver Goals Recommendations for plantar fasciitis to help walking pattern. Pt goal is to walk with reduced or without pain. Prior Functional Status Baseline Function- ADL's Independent Baseline Function- Mobility Independent Baseline Function- Gait 3-4 miles daily, max 5 miles. Goal was to do 5 miles/day. Baseline Function- Other Was going through mother's possessions. Fell off ladder (5'up) and landed on back on a cushion ( last summer) but reports she didn't have a problem afterwards. Current Functional Impairments (Reported) Functional Limitations- ADL's Since pandemic sedentary ( watch TV, sews, paperwork). Hoping to go back to building cupboards when weather turns better. Functional Limitations- Mobility/Gait Started 3 days ago return to walking 3/4 mile and started to get sharp pains; therefore stopped. Functional Limitations- Other Vacuming daily hurts, but does it. Personal Factors Other Personal Factors That May Effect Lives alone. Therapy/Recovery PT-OP-C Subjective Start: 01/15/21 18:04 Freq: Status: Active Protocol: Document 02/05/21 08:17 LRN (Rec: 02/05/21 09:07 LRN [id number]) OP-PT Subjective Patient Comments Patient Comments Doing great. Can't walk because of sore on ball of foot. Up to 30 reps on exercises. Painfree. Would like some treatment on the R buttock. PT-OP-G Mobility & Gait Start: 01/15/21 18:04 Freq: Status: Active Protocol: Document 01/18/21 10:30 LRN (Rec: 01/18/21 11:25 LRN [id number]) OP Gait Assessment Gait Gait Assistance Required: Independent Able to Maintain Weight Bearing Status Yes During Gait Assistive Devices Assistive Device None Comments Gait Comments Slight excessive lateral shift of R hip with a non-painful gait. Stair Climbing Evaluation Comments Stair Climbing Comments Doesn't have stair. PT-OP-H Neuro Start: 01/15/21 18:04 Freq: Status: Active Protocol: Document 01/18/21 10:30 LRN (Rec: 01/18/21 11:25 LRN [id number]) Sensation Evaluation Gross Sensation Gross Sensation WNL PT-OP-J Posture/Palpation/Skin Start: 01/15/21 18:04 Freq: Status: Active Protocol: Document 01/18/21 10:30 LRN (Rec: 01/18/21 11:25 LRN [id number]) Posture Evaluation Position Standing L-Spine Posture Increased Lordosis Shoulder Posture Neutral Pelvis Posture Anteriorly Tilted Comments Posture Comments Stands forward on toes. Palpation Assessment Location R thigh Palpation Location IT Band Palpation Findings Tenderness R hip Palpation Location Greater trochanter & TFL ms Palpation Findings Tenderness Palpation Details Gluteal ms hypertrophy left hip compared to right. PT-OP-K Range of Motion Start: 01/15/21 18:04 Freq: Status: Active Protocol: Document 01/18/21 10:30 LRN (Rec: 01/18/21 11:25 LRN [id number]) Hip Goniometric Range of Motion Hip Left Passive Testing Position Supine Straight Leg Raise 45 Internal Rotation 30 External Rotation 65 Right Passive Testing Position Supine Straight Leg Raise 50 Internal Rotation 20 External Rotation 75 PT-OP-M Strength Start: 01/15/21 18:04 Freq: Status: Active Protocol: Document 01/18/21 10:30 LRN (Rec: 01/18/21 11:25 LRN [id number]) Hip Strength Hip Manual Muscle Testing Left Extension (S1) 4+ Good+ Abduction 5 Normal Adduction 2 Poor External Rotation 4+ Good+ Internal Rotation 4+ Good+ Right Flexion (L2) 4+ Good+ Extension (S1) 4- Good- Abduction 3 Fair Adduction 5 Normal External Rotation 4+ Good+ Internal Rotation 4+ Good+ Comments Dec trunk control with hip flex PT-OP-Q Treatments Start: 01/15/21 18:04 Freq: Status: Active Protocol: Document 02/05/21 08:17 LRN (Rec: 02/05/21 09:07 LRN [id number]) Therapeutic Exercises Supine Exercises Hip Flexor stretch Supine Exercise Name Leg off table f/b active stretch Reps/Minutes 1' stretch f/b active stretch Hip ER/IR strengthening Supine Exercise Name Clamshell/Reverse Clamshell Side bilateral Reps/Minutes 10x each TA/SLR Supine Exercise Name TA/SLR Side bilateral Reps/Minutes 12x each Hip AB Supine Exercise Name Active Hip AB Side right Reps/Minutes 10x 3 Comments No complaints of pain, initial review needed. BKFO Supine Exercise Name BKFO Side bilateral Reps/Minutes 30x Comments Stopped due to R hip pain. Bridge Supine Exercise Name Bridge Reps/Minutes 10x 3 Comments Adjustments to positioning needed through ex Stretch to Hip AD's Supine Exercise Name BKFO hip AD stretch Reps/Minutes 30 x 2, f/b active stretch Lateral Hip stretch Supine Exercise Name Lateral Hip stretch Side bilateral Reps/Minutes 5' Manual Therapy Treatment Soft Tissue Mobilization R IT-Band Body Location R IT-Band Mobilization Type Instrument Assisted Intensity/Depth Superficial Body Position Sidelying R TFL Body Location R TFL Mobilization Type Instrument Assisted Intensity/Depth Moderate Body Position Sidelying Self-Care/Home Management Treatment Education Patient Education Home Exercise Program Other Education Discussed plan of care and discussed healing/recover times for walking. Discussed goals for walking and recommended goals of walking 5 -6 miles in a day by breaking up the walking of morning to nighttime. Activities Self-Care/Home Management Activities Issued & reviewed HEP: * Clamshell/Reverse Clamshell, CORE STAB: *Bridge, *Leg lift , *January. PT-OP-R Modalities Start: 01/15/21 18:04 Freq: Status: Active Protocol: Document 01/28/21 10:45 LRN (Rec: 01/28/21 11:32 LRN [id number]) Hot Pack/Cold Pack Treatment Cold Pack Location Low back Patient Position Supine Treatment Duration (minutes) 10 PT-OP-T Assessment and Plan Start: 01/15/21 18:04 Freq: Status: Active Protocol: Document 02/05/21 08:17 LRN (Rec: 02/05/21 09:07 LRN [id number]) Physical Therapy Assessment Goals Four Impairment Decreased R hip IR ROM (25 deg 's right, 30 deg's left) Short Term Goal (STG) Pt will be independent in ROM HEP to improve R hip IR and L hip ER PROM. STG Duration 02/15/21 Poultry Husbandry Teacher Goal (LTG) Pt will demonstrate symmetrical hip ER/IR PROM. LTG Duration 04/18/21 Three Impairment Pain in R LE limiting gait ability (hip/lat thigh/foot 6/ 10, low back 4/10) Short Term Goal (STG) Decrease pain with gait to no more than 3/10. (01/24/21: Walked yesterday without pain) STG Duration 02/15/21 Senior Living Goal (LTG) Pt will be able to return to walking 3-4 miles/day without increase in RLE pain. (01/24/21: Walked 1/2 mile without lateral leg pain) LTG Duration 04/18/21 Two Impairment Decreased R hip AB strength, limiting ability to walk for health. Short Term Goal (STG) Improve R hip AB strength to no less than 4/5. STG Duration 02/15/21 Poultry Husbandry Teacher Goal (LTG) Normal R hip strength improving gait tolerance to 3 miles/day walking. (Initial R hip strength: flex/ER/IR rot 4+/5, ext 4-/5, AB 3/5, AD 5/ 5). LTG Duration 04/18/21 One Impairment Lacks appropriate self care HEP. STG Duration 02/15/21 Poultry Husbandry Teacher Goal (LTG) Pt will be independent in a self care HEP. ISSUED TO DATE: STRETCHES: *R TFL, *Lateral Hip, *Hip ADD stretch STRENGTHENING: *BKFO, *Bridge , *Prone Hip ext, *Clamshell/ Reverse Clamshell. CORE STAB: *Bridge, *Leg lift , *March. LTG Duration 04/18/21 (01/22/21: Progressing) Progress Towards Goals Progress Comments Progressed HEP Assessment Summary Assessment Marching core ex caused R thigh pain due to poor core stab and flattening of back. Pt to work on keeping natural curvature of L/S with exercises. Physical Therapy Plan Frequency and Duration Frequency of Treatment 2x/Week Plan of Care Start Date 01/18/21 Plan of Care End Date 04/18/21 Next Visit Focus/Plan Next Note Type Treatment Note Next Visit Plan Pt holding next week to let her foot sore heal, then will try resuming walking. If she is not able to walk she will return (1-2 weeks) after she has started walking. Review hip flex ex, ER/IR strengthening), core strengthening. Pt is to get clearance from oncologist for use of US or Ionto due to diagnosis of new connective tissue disorder.
--- NOTE | 2021-02-19 11:12 | PT.OTN ---
Current Diagnoses Low back pain (02/19/21) Muscle weakness (generalized) (02/19/21) Iliotibial band syndrome, right leg (02/19/21) Other reduced mobility (02/19/21) Physical Therapy Treatment Note PT-OP-A Visit Information Start: 01/15/21 18:04 Freq: Status: Active Protocol: Document 02/19/21 08:20 LRN (Rec: 02/19/21 09:03 LRN [id number]) Out-Patient Physical Therapy Visit Information Visit Information Visit Type Treatment Note Visit Start Time 08:20 Visit Stop Time 09:00 Total Visit Minutes 40 Visit Number 6 Evaluation Information Evaluation Date 01/18/21 Precautions Precautions Osteopenia, OA in fingers, toes, depression controlled by meds, periodic migraines, neck and back pain, 2 right & 1 left shoulder surgerys (R acromioplasty, L removing cartilage), jina TKA (2011 & 2012), Lumbar surgery L2-5 fused 2011. Sleep apnea, mixed connective tissue disease, Chronic Kidney Disease stage 3B (1-5 stages), history of plantar fascities. New diagnosis: Monoclonal Gammopathy of unspecified/ undetermined significance ( plasma disorder that my progress to multiple myeloma). PT-OP-B Current Condition Start: 01/15/21 18:04 Freq: Status: Active Protocol: Document 01/18/21 10:30 LRN (Rec: 01/18/21 11:25 LRN [id number]) Current Condition History of Current Condition Onset Date 08/18/20 Current Complaints R hip, lateral thigh radiating into the low back and buttock . History of Current Condition Walking around the kitchen with sudden sharp R knee ( above, below, outside) pain and now has R lateral thigh and back pain. Also onset of neck pain since becoming more sedentary. States she has a PT referral for back pain written in August 2020 was from Edilia Calderon NP. Prior Treatments and Tests Dr. Cabrera referred for PT Future Testing and Treatments Planned Every 6 months gets inflammation levels and markers for autoimmune disease . Developmental History Developmental History Was walking 4 miles/day until 08/18/2020, then was walking around the kitchen with sudden sharp R knee (above, below, outside) pain. Saw Dr. Cabrera 12/30/20 and he diagnosed her with tight IT Band. She started to get R hip pain 2 weeks later, setting off all her lumbar pain. Has been sedentary since the knee pain started. Went on anti-inflammatory diet and now has only occasional fibromyalgia pain, but now has mixed connective tissue disease because of joint pain in hands/feet, and Sjogren symptoms of dry eyes, dry mouth. Lab results are negative for inflammation. Treatment Goals Patient/Caregiver Goals Recommendations for plantar fasciitis to help walking pattern. Pt goal is to walk with reduced or without pain. Prior Functional Status Baseline Function- ADL's Independent Baseline Function- Mobility Independent Baseline Function- Gait 3-4 miles daily, max 5 miles. Goal was to do 5 miles/day. Baseline Function- Other Was going through mother's possessions. Fell off ladder (5'up) and landed on back on a cushion ( last summer) but reports she didn't have a problem afterwards. Current Functional Impairments (Reported) Functional Limitations- ADL's Since pandemic sedentary ( watch TV, sews, paperwork). Hoping to go back to building cupboards when weather turns better. Functional Limitations- Mobility/Gait Started 3 days ago return to walking 3/4 mile and started to get sharp pains; therefore stopped. Functional Limitations- Other Vacuming daily hurts, but does it. Personal Factors Other Personal Factors That May Effect Lives alone. Therapy/Recovery PT-OP-C Subjective Start: 01/15/21 18:04 Freq: Status: Active Protocol: Document 02/19/21 08:20 LRN (Rec: 02/19/21 09:03 LRN [id number]) OP-PT Subjective Patient Comments Patient Comments Walked 1 mile and had 3 stbbing flash pains on uphill part around [facility]. At end felt fine. Hasn't exercised because was sick from 2nd wikifolio vaccine. Pain in R hip with walking and moving is rated 4-5/10, since walking the [place] loop. States the foot is mostly sore. OP-PT Pain Assessment Pain Assessment Grid Paper Pain Assessment Grid Completed No Location Right Buttock Pain Location Details R lateral buttock Intensity 5 Description Tightness Low Back pain Pain Location Details Across low back Intensity 5 Description Aching PT-OP-G Mobility & Gait Start: 01/15/21 18:04 Freq: Status: Active Protocol: Document 01/18/21 10:30 LRN (Rec: 01/18/21 11:25 LRN [id number]) OP Gait Assessment Gait Gait Assistance Required: Independent Able to Maintain Weight Bearing Status Yes During Gait Assistive Devices Assistive Device None Comments Gait Comments Slight excessive lateral shift of R hip with a non-painful gait. Stair Climbing Evaluation Comments Stair Climbing Comments Doesn't have stair. PT-OP-H Neuro Start: 01/15/21 18:04 Freq: Status: Active Protocol: Document 01/18/21 10:30 LRN (Rec: 01/18/21 11:25 LRN [id number]) Sensation Evaluation Gross Sensation Gross Sensation WNL PT-OP-J Posture/Palpation/Skin Start: 01/15/21 18:04 Freq: Status: Active Protocol: Document 01/18/21 10:30 LRN (Rec: 01/18/21 11:25 LRN [id number]) Posture Evaluation Position Standing L-Spine Posture Increased Lordosis Shoulder Posture Neutral Pelvis Posture Anteriorly Tilted Comments Posture Comments Stands forward on toes. Palpation Assessment Location R thigh Palpation Location IT Band Palpation Findings Tenderness R hip Palpation Location Greater trochanter & TFL ms Palpation Findings Tenderness Palpation Details Gluteal ms hypertrophy left hip compared to right. PT-OP-K Range of Motion Start: 01/15/21 18:04 Freq: Status: Active Protocol: Document 01/18/21 10:30 LRN (Rec: 01/18/21 11:25 LRN [id number]) Hip Goniometric Range of Motion Hip Left Passive Testing Position Supine Straight Leg Raise 45 Internal Rotation 30 External Rotation 65 Right Passive Testing Position Supine Straight Leg Raise 50 Internal Rotation 20 External Rotation 75 PT-OP-M Strength Start: 01/15/21 18:04 Freq: Status: Active Protocol: Document 01/18/21 10:30 LRN (Rec: 01/18/21 11:25 LRN [id number]) Hip Strength Hip Manual Muscle Testing Left Extension (S1) 4+ Good+ Abduction 5 Normal Adduction 2 Poor External Rotation 4+ Good+ Internal Rotation 4+ Good+ Right Flexion (L2) 4+ Good+ Extension (S1) 4- Good- Abduction 3 Fair Adduction 5 Normal External Rotation 4+ Good+ Internal Rotation 4+ Good+ Comments Dec trunk control with hip flex PT-OP-Q Treatments Start: 01/15/21 18:04 Freq: Status: Active Protocol: Document 02/19/21 08:20 LRN (Rec: 02/19/21 09:03 LRN [id number]) Therapeutic Exercises Supine Exercises Heel slides Supine Exercise Name TA/Heelslides Side right Reps/Minutes 5' BKFO Supine Exercise Name BKFO Side bilateral Reps/Minutes 5' Comments created pain Manual Therapy Treatment Soft Tissue Mobilization Low Back Body Location R low back Mobilization Type Strumming Intensity/Depth Moderate Body Position Sidelying R Gluteal ms Body Location Glutius Medius Mobilization Type Instrument Assisted,Strumming Intensity/Depth Superficial Body Position Sidelying R IT-Band Body Location R IT-Band Mobilization Type Instrument Assisted Intensity/Depth Superficial Body Position Sidelying R TFL Body Location R TFL Mobilization Type Instrument Assisted Intensity/Depth Moderate Body Position Sidelying PT-OP-R Modalities Start: 01/15/21 18:04 Freq: Status: Active Protocol: Document 01/28/21 10:45 LRN (Rec: 01/28/21 11:32 LRN [id number]) Hot Pack/Cold Pack Treatment Cold Pack Location Low back Patient Position Supine Treatment Duration (minutes) 10 PT-OP-T Assessment and Plan Start: 01/15/21 18:04 Freq: Status: Active Protocol: Document 02/19/21 08:20 LRN (Rec: 02/19/21 09:03 LRN [id number]) Physical Therapy Assessment Goals Four Impairment Decreased R hip IR ROM (25 deg 's right, 30 deg's left) Short Term Goal (STG) Pt will be independent in ROM HEP to improve R hip IR and L hip ER PROM. STG Duration 02/15/21 Prison Goal (LTG) Pt will demonstrate symmetrical hip ER/IR PROM. LTG Duration 04/18/21 Three Impairment Pain in R LE limiting gait ability (hip/lat thigh/foot 6/ 10, low back 4/10) Short Term Goal (STG) Decrease pain with gait to no more than 3/10. (02/19/21: Walked 1 mile with pain rated 4-5/10) STG Duration 02/15/21 Prison Goal (LTG) Pt will be able to return to walking 3-4 miles/day without increase in RLE pain. (01/24/21: Walked 1/2 mile without lateral leg pain) (02/19/21: Walked 1 mile with pain rated 4-5/10) LTG Duration 04/18/21 Two Impairment Decreased R hip AB strength, limiting ability to walk for health. Short Term Goal (STG) Improve R hip AB strength to no less than 4/5. STG Duration 02/15/21 Palliative Care Nurse Practitioner Goal (LTG) Normal R hip strength improving gait tolerance to 3 miles/day walking. (Initial R hip strength: flex/ER/IR rot 4+/5, ext 4-/5, AB 3/5, AD 5/ 5). LTG Duration 04/18/21 One Impairment Lacks appropriate self care HEP. STG Duration 02/15/21 Palliative Care Nurse Practitioner Goal (LTG) Pt will be independent in a self care HEP. ISSUED TO DATE: STRETCHES: *R TFL, *Lateral Hip, *Hip ADD stretch STRENGTHENING: *BKFO, *Bridge , *Prone Hip ext, *Clamshell/ Reverse Clamshell. CORE STAB: *Bridge, *Leg lift , *January. LTG Duration 04/18/21 (01/22/21: Progressing) Progress Towards Goals Progress Towards Goals Slow Progress due to Activity Tolerance Progress Comments Low tolerance to ex due to pain in LB and R hip. Assessment Summary Assessment Pt did long walk (1 mile) with sharp stabbing pain x 3 in R lateral hip/leg, but felt ok after wards, also did shopping ~4 hrs. Today, SBing L causes sharp pain in R lateral trunk/LB. Relief of pain in lateral R leg, but GM is fractionating still operator post therapy. Physical Therapy Plan Frequency and Duration Frequency of Treatment 2x/Week Plan of Care Start Date 01/18/21 Plan of Care End Date 04/18/21 Next Visit Focus/Plan Next Note Type Treatment Note Next Visit Plan Pt to try resuming walking when pain is down, starting at 1/4 mile and increasing as tolerated. She will break up her building of [employer] into 10' segments over next 2 days. Assess response to activities. Review hip flex ex, ER/IR strengthening), core strengthening. Check hip flexibility (rot). Pt is to get clearance from oncologist for use of US or Ionto due to diagnosis of new connective tissue disorder.
--- NOTE | 2021-02-26 16:51 | PT.OTN ---
Current Diagnoses Low back pain (02/26/21) Muscle weakness (generalized) (02/26/21) Iliotibial band syndrome, right leg (02/26/21) Other reduced mobility (02/26/21) Physical Therapy Treatment Note PT-OP-A Visit Information Start: 01/15/21 18:04 Freq: Status: Active Protocol: Document 02/26/21 09:07 LRN (Rec: 02/26/21 09:56 LRN [id number]) Out-Patient Physical Therapy Visit Information Visit Information Visit Type Treatment Note Visit Start Time 09:07 Visit Stop Time 09:47 Total Visit Minutes 40 Visit Number 7 Evaluation Information Evaluation Date 01/18/21 Precautions Precautions Osteopenia, OA in fingers, toes, depression controlled by meds, periodic migraines, neck and back pain, 2 right & 1 left shoulder surgerys (R acromioplasty, L removing cartilage), jina TKA (2011 & 2012), Lumbar surgery L2-5 fused 2011. Sleep apnea, mixed connective tissue disease, Chronic Kidney Disease stage 3B (1-5 stages), history of plantar fascities. New diagnosis: Monoclonal Gammopathy of unspecified/ undetermined significance ( plasma disorder that my progress to multiple myeloma). PT-OP-B Current Condition Start: 01/15/21 18:04 Freq: Status: Active Protocol: Document 01/18/21 10:30 LRN (Rec: 01/18/21 11:25 LRN [id number]) Current Condition History of Current Condition Onset Date 08/18/20 Current Complaints R hip, lateral thigh radiating into the low back and buttock . History of Current Condition Walking around the kitchen with sudden sharp R knee ( above, below, outside) pain and now has R lateral thigh and back pain. Also onset of neck pain since becoming more sedentary. States she has a PT referral for back pain written in August 2020 was from Edilia Calderon NP. Prior Treatments and Tests Dr. Cabrera referred for PT Future Testing and Treatments Planned Every 6 months gets inflammation levels and markers for autoimmune disease . Developmental History Developmental History Was walking 4 miles/day until 08/18/2020, then was walking around the kitchen with sudden sharp R knee (above, below, outside) pain. Saw Dr. Cabrera 12/30/20 and he diagnosed her with tight IT Band. She started to get R hip pain 2 weeks later, setting off all her lumbar pain. Has been sedentary since the knee pain started. Went on anti-inflammatory diet and now has only occasional fibromyalgia pain, but now has mixed connective tissue disease because of joint pain in hands/feet, and Sjogren symptoms of dry eyes, dry mouth. Lab results are negative for inflammation. Treatment Goals Patient/Caregiver Goals Recommendations for plantar fasciitis to help walking pattern. Pt goal is to walk with reduced or without pain. Prior Functional Status Baseline Function- ADL's Independent Baseline Function- Mobility Independent Baseline Function- Gait 3-4 miles daily, max 5 miles. Goal was to do 5 miles/day. Baseline Function- Other Was going through mother's possessions. Fell off ladder (5'up) and landed on back on a cushion ( last summer) but reports she didn't have a problem afterwards. Current Functional Impairments (Reported) Functional Limitations- ADL's Since pandemic sedentary ( watch TV, sews, paperwork). Hoping to go back to building cupboards when weather turns better. Functional Limitations- Mobility/Gait Started 3 days ago return to walking 3/4 mile and started to get sharp pains; therefore stopped. Functional Limitations- Other Vacuming daily hurts, but does it. Personal Factors Other Personal Factors That May Effect Lives alone. Therapy/Recovery PT-OP-C Subjective Start: 01/15/21 18:04 Freq: Status: Active Protocol: Document 02/26/21 09:07 LRN (Rec: 02/26/21 09:56 LRN [id number]) OP-PT Subjective Patient Comments Patient Comments Thinks supine hip actvie AB is contributing to her lumbar pain and low level bursitis; also leaning over and cleaning up her cat litter. Thinks the COVID vaccine flaired up her fibromyalgia and is getting more body aches and is taking Tramadol 2x/day instead of 1x/day. Can now walk 1 mile/day on flat surface 3x/week. PT-OP-G Mobility & Gait Start: 01/15/21 18:04 Freq: Status: Active Protocol: Document 01/18/21 10:30 LRN (Rec: 01/18/21 11:25 LRN [id number]) OP Gait Assessment Gait Gait Assistance Required: Independent Able to Maintain Weight Bearing Status Yes During Gait Assistive Devices Assistive Device None Comments Gait Comments Slight excessive lateral shift of R hip with a non-painful gait. Stair Climbing Evaluation Comments Stair Climbing Comments Doesn't have stair. PT-OP-H Neuro Start: 01/15/21 18:04 Freq: Status: Active Protocol: Document 01/18/21 10:30 LRN (Rec: 01/18/21 11:25 LRN [id number]) Sensation Evaluation Gross Sensation Gross Sensation WNL PT-OP-J Posture/Palpation/Skin Start: 01/15/21 18:04 Freq: Status: Active Protocol: Document 01/18/21 10:30 LRN (Rec: 01/18/21 11:25 LRN [id number]) Posture Evaluation Position Standing L-Spine Posture Increased Lordosis Shoulder Posture Neutral Pelvis Posture Anteriorly Tilted Comments Posture Comments Stands forward on toes. Palpation Assessment Location R thigh Palpation Location IT Band Palpation Findings Tenderness R hip Palpation Location Greater trochanter & TFL ms Palpation Findings Tenderness Palpation Details Gluteal ms hypertrophy left hip compared to right. PT-OP-K Range of Motion Start: 01/15/21 18:04 Freq: Status: Active Protocol: Document 02/26/21 09:07 LRN (Rec: 02/26/21 09:56 LRN [id number]) Hip Goniometric Range of Motion Hip Left Passive Testing Position Supine Internal Rotation 30 External Rotation 60 Right Passive Testing Position Supine Internal Rotation 25 External Rotation 80 PT-OP-M Strength Start: 01/15/21 18:04 Freq: Status: Active Protocol: Document 01/18/21 10:30 LRN (Rec: 01/18/21 11:25 LRN [id number]) Hip Strength Hip Manual Muscle Testing Left Extension (S1) 4+ Good+ Abduction 5 Normal Adduction 2 Poor External Rotation 4+ Good+ Internal Rotation 4+ Good+ Right Flexion (L2) 4+ Good+ Extension (S1) 4- Good- Abduction 3 Fair Adduction 5 Normal External Rotation 4+ Good+ Internal Rotation 4+ Good+ Comments Dec trunk control with hip flex PT-OP-Q Treatments Start: 01/15/21 18:04 Freq: Status: Active Protocol: Document 02/26/21 09:07 LRN (Rec: 02/26/21 09:56 LRN [id number]) Therapeutic Exercises Supine Exercises Fig 4 stretch Supine Exercise Name Fig 4 w/towel roll in low back Side left Reps/Minutes 3' Piriformis stretch Supine Exercise Name Piriformis stretch w/towel roll in LB Side left Reps/Minutes 3' Shira Hip AD Supine Exercise Name Hip AD ball squeeze Side bilateral Equipment Used Ball Reps/Minutes 20x Hip AB Supine Exercise Name Active Hip AB Side right Equipment Used Towel roll under low back Reps/Minutes 6x Comments Extra time taken to determine tolerance to ex. BKFO Supine Exercise Name BKFO Side bilateral Equipment Used Lev 1 TB Reps/Minutes 5' Lateral Hip stretch Supine Exercise Name Lateral Hip stretch Side left Reps/Minutes 5' Manual Therapy Treatment Soft Tissue Mobilization R IT-Band Body Location Bilateral IT-Band Mobilization Type Instrument Assisted Intensity/Depth Superficial Body Position Sidelying Comments L side lower IT Band, R side upper/mid IT band R TFL Body Location R TFL Mobilization Type Instrument Assisted Intensity/Depth Moderate Body Position Sidelying Comments Multiple trigger points. Self-Care/Home Management Treatment Education Patient Education Home Exercise Program Activities Self-Care/Home Management Activities Issued & reviewed HEP: *Fig 4 (L), L*ateral Hip stretch (L), *Piriformis stretch (L). Issued Lev 1 TB ex for BKFO with resistance. PT-OP-R Modalities Start: 01/15/21 18:04 Freq: Status: Active Protocol: Document 01/28/21 10:45 LRN (Rec: 01/28/21 11:32 LRN [id number]) Hot Pack/Cold Pack Treatment Cold Pack Location Low back Patient Position Supine Treatment Duration (minutes) 10 PT-OP-T Assessment and Plan Start: 01/15/21 18:04 Freq: Status: Active Protocol: Document 02/26/21 09:07 LRN (Rec: 02/26/21 09:56 LRN [id number]) Physical Therapy Assessment Goals Four Impairment Decreased R hip IR ROM (25 deg 's right, 30 deg's left) Short Term Goal (STG) Pt will be independent in ROM HEP to improve R hip IR and L hip ER PROM. (02/26/21: HEP issued) STG Duration 02/15/21 (02/26/21: MET GOAL) Intermediate Goal (LTG) Pt will demonstrate symmetrical hip ER/IR PROM. LTG Duration 04/18/21 Three Impairment Pain in R LE limiting gait ability (hip/lat thigh/foot 6/ 10, low back 4/10) Short Term Goal (STG) Decrease pain with gait to no more than 3/10. (02/26/21: Walked 1 mile on level without pain) STG Duration 02/15/21 (02/26/21: MET GOAL for level surface) Intermediate Goal (LTG) Pt will be able to return to walking 3-4 miles/day without increase in RLE pain. (01/24/21: Walked 1/2 mile without lateral leg pain) (02/19/21: Walked 1 mile with pain rated 4-5/10) LTG Duration 04/18/21 Two Impairment Decreased R hip AB strength, limiting ability to walk for health. Short Term Goal (STG) Improve R hip AB strength to no less than 4/5. STG Duration 02/15/21 Intermediate Goal (LTG) Normal R hip strength improving gait tolerance to 3 miles/day walking. (Initial R hip strength: flex/ER/IR rot 4+/5, ext 4-/5, AB 3/5, AD 5/ 5). LTG Duration 04/18/21 One Impairment Lacks appropriate self care HEP. STG Duration 02/15/21 Dishwasher Busser Goal (LTG) Pt will be independent in a self care HEP. ISSUED TO DATE: STRETCHES: *R TFL, *Lateral Hip, *Hip ADD stretch, *Fig 4 (L), *Lateral Hip stretch (L), *Piriformis stretch (L). STRENGTHENING: *BKFO, *Bridge , *Prone Hip ext, *Clamshell/ Reverse Clamshell. *Issued Lev 1 TB ex for BKFO with resistance. CORE STAB: *Bridge, *Leg lift , *January. LTG Duration 04/18/21 (02/26/21: Progressing) Progress Towards Goals Progress Comments STG #3 & #4 MET. Assessment Summary Assessment Pt sore in R hip due to her trying to apply self TrP treatment to region of Sciatic nerve that is more external at the hip. Pt had + response to TrP treatment at the TFL ms and STM at L IT Band with reduction in pain complaints. Supine active hip AB increased LBP due to poor support to LB and starting to irritate her bilateral bursitis. Pt to reduce hip AB ex (not tolerated in standing ) and needs towel support in LB with exercises. Pt is walking 1 mile on flat level without onset of pain. Physical Therapy Plan Frequency and Duration Frequency of Treatment 2x/Week Plan of Care Start Date 01/18/21 Plan of Care End Date 04/18/21 Next Visit Focus/Plan Next Note Type Treatment Note Next Visit Plan Recheck hip mobility in 2 wks. Recheck HEP of L hip stretches and TrP treatment to L distal IT band and MH treatment to R hip, external sciatic n location. She will complete her building of [employer] today, so recheck on tolerance to activity. Review hip flex ex, ER/IR strengthening), core strengthening. Pt is to get clearance from oncologist for use of US or Ionto due to diagnosis of new connective tissue disorder.
--- NOTE | 2021-03-05 09:36 | PT.OTN ---
Current Diagnoses Low back pain (03/05/21) Muscle weakness (generalized) (03/05/21) Iliotibial band syndrome, right leg (03/05/21) Other reduced mobility (03/05/21) Physical Therapy Treatment Note PT-OP-A Visit Information Start: 01/15/21 18:04 Freq: Status: Active Protocol: Document 03/05/21 08:15 LRN (Rec: 03/05/21 09:13 LRN [id number]) Out-Patient Physical Therapy Visit Information Visit Information Visit Type Treatment Note Visit Start Time 08:15 Visit Stop Time 09:00 Total Visit Minutes 45 Visit Number 8 Evaluation Information Evaluation Date 01/18/21 Precautions Precautions Osteopenia, OA in fingers, toes, depression controlled by meds, periodic migraines, neck and back pain, 2 right & 1 left shoulder surgerys (R acromioplasty, L removing cartilage), sam TKA (2011 & 2012), Lumbar surgery L2-5 fused 2011. Sleep apnea, mixed connective tissue disease, Chronic Kidney Disease stage 3B (1-5 stages), history of plantar fascities. New diagnosis: Monoclonal Gammopathy of unspecified/ undetermined significance ( plasma disorder that my progress to multiple myeloma). PT-OP-B Current Condition Start: 01/15/21 18:04 Freq: Status: Active Protocol: Document 01/18/21 10:30 LRN (Rec: 01/18/21 11:25 LRN [id number]) Current Condition History of Current Condition Onset Date 08/18/20 Current Complaints R hip, lateral thigh radiating into the low back and buttock . History of Current Condition Walking around the kitchen with sudden sharp R knee ( above, below, outside) pain and now has R lateral thigh and back pain. Also onset of neck pain since becoming more sedentary. States she has a PT referral for back pain written in August 2020 was from Edilia Calderon NP. Prior Treatments and Tests Dr. Cabrera referred for PT Future Testing and Treatments Planned Every 6 months gets inflammation levels and markers for autoimmune disease . Developmental History Developmental History Was walking 4 miles/day until 08/18/2020, then was walking around the kitchen with sudden sharp R knee (above, below, outside) pain. Saw Dr. Cabrera 12/30/20 and he diagnosed her with tight IT Band. She started to get R hip pain 2 weeks later, setting off all her lumbar pain. Has been sedentary since the knee pain started. Went on anti-inflammatory diet and now has only occasional fibromyalgia pain, but now has mixed connective tissue disease because of joint pain in hands/feet, and Sjogren symptoms of dry eyes, dry mouth. Lab results are negative for inflammation. Treatment Goals Patient/Caregiver Goals Recommendations for plantar fasciitis to help walking pattern. Pt goal is to walk with reduced or without pain. Prior Functional Status Baseline Function- ADL's Independent Baseline Function- Mobility Independent Baseline Function- Gait 3-4 miles daily, max 5 miles. Goal was to do 5 miles/day. Baseline Function- Other Was going through mother's possessions. Fell off ladder (5'up) and landed on back on a cushion ( last summer) but reports she didn't have a problem afterwards. Current Functional Impairments (Reported) Functional Limitations- ADL's Since pandemic sedentary ( watch TV, sews, paperwork). Hoping to go back to building cupboards when weather turns better. Functional Limitations- Mobility/Gait Started 3 days ago return to walking 3/4 mile and started to get sharp pains; therefore stopped. Functional Limitations- Other Vacuming daily hurts, but does it. Personal Factors Other Personal Factors That May Effect Lives alone. Therapy/Recovery PT-OP-C Subjective Start: 01/15/21 18:04 Freq: Status: Active Protocol: Document 03/05/21 08:15 LRN (Rec: 03/05/21 09:13 LRN [id number]) OP-PT Subjective Patient Comments Patient Comments No pain in IT Band area. Having LBP [place] on the R side going into buttocks and hip. Walking no more than 1 mile and that has been going well. Will try to increase it a little bit. Feels 100% better . Having bursitis in the hip. Thinks the vaccine restarted her fibromyalgia pain and that is what she is dealing with now. Patient Questionnaires Lower Extremity Functional Scale LEFS Score 64 LEFS Impairment 1 to 19% Impaired (Score 63-79 ) OP-PT Pain Assessment Location Right Buttock Pain Location Details R lateral buttock Intensity 3 Description Tightness Pain Duration Depends on activity, no pain sit or standing Low Back pain Pain Location Details Across low back Intensity 3 Description Aching Pain Duration Depends on activity, no pain sit or standing R lateral thigh Pain Location Details R hip lateral thigh from knee to hip, radiates to LB/ buttocks Intensity 0 PT-OP-G Mobility & Gait Start: 01/15/21 18:04 Freq: Status: Active Protocol: Document 03/05/21 08:15 LRN (Rec: 03/05/21 09:13 LRN [id number]) OP Gait Assessment Comments Gait Comments Normal, back to pt's prior level of function. PT-OP-H Neuro Start: 01/15/21 18:04 Freq: Status: Active Protocol: Document 01/18/21 10:30 LRN (Rec: 01/18/21 11:25 LRN [id number]) Sensation Evaluation Gross Sensation Gross Sensation WNL PT-OP-J Posture/Palpation/Skin Start: 01/15/21 18:04 Freq: Status: Active Protocol: Document 01/18/21 10:30 LRN (Rec: 01/18/21 11:25 LRN [id number]) Posture Evaluation Position Standing L-Spine Posture Increased Lordosis Shoulder Posture Neutral Pelvis Posture Anteriorly Tilted Comments Posture Comments Stands forward on toes. Palpation Assessment Location R thigh Palpation Location IT Band Palpation Findings Tenderness R hip Palpation Location Greater trochanter & TFL ms Palpation Findings Tenderness Palpation Details Gluteal ms hypertrophy left hip compared to right. PT-OP-K Range of Motion Start: 01/15/21 18:04 Freq: Status: Active Protocol: Document 03/05/21 08:15 LRN (Rec: 03/05/21 09:13 LRN [id number]) Hip Goniometric Range of Motion Hip Left Passive Testing Position Supine Internal Rotation 35 External Rotation 75 Right Passive Testing Position Supine Internal Rotation 30 External Rotation 85 PT-OP-M Strength Start: 01/15/21 18:04 Freq: Status: Active Protocol: Document 03/05/21 08:15 LRN (Rec: 03/05/21 09:13 LRN [id number]) Hip Strength Hip Manual Muscle Testing Left Abduction 5 Normal Adduction 3+ Fair+ Right Abduction 4 Good Adduction 5 Normal PT-OP-Q Treatments Start: 01/15/21 18:04 Freq: Status: Active Protocol: Document 03/05/21 08:15 LRN (Rec: 03/05/21 09:13 LRN [id number]) Therapeutic Exercises Supine Exercises Fig 4 stretch Supine Exercise Name Modified Fig 4, f/b ROM taken Side left Reps/Minutes 4' Comments Foot crossed below the knee & towel roll in low back Piriformis stretch Supine Exercise Name Piriformis stretch w/towel roll in LB Side left Reps/Minutes 3' Hip AB Supine Exercise Name Active Hip AB Side bilateral Equipment Used Towel roll under low back Reps/Minutes 35x BKFO Supine Exercise Name BKFO Side bilateral Equipment Used Lev 1 TB Reps/Minutes 5' Bridge Supine Exercise Name Bridging Reps/Minutes 3' Lateral Hip stretch Supine Exercise Name Lateral Hip stretch Side left Reps/Minutes 4' Comments Sam Hip ROM taken Sidelying Exercises Hip AD Sidelying Exercise Name Hip AD Side left Reps/Minutes 5' Comments Extra time to maximize positioning to prevent LBP & phys/v cuing needed Hip AB Sidelying Exercise Name Hip AB strengthening Side bilateral Reps/Minutes 10x Self-Care/Home Management Treatment Education Patient Education Home Exercise Program Other Education 2' Discussed alternate ways for pt to change her cat litter to avoid bending and lifting & discussed other activities pt planning ( painting) and how to avoid increased back pain (breaking up time of activity primarily) . Activities Self-Care/Home Management Activities Reviewed HEP ex's and modified L Hip ER stretch to sitting with knee up on plinth or sitting on plinth w/bilateral BKFO with feet together. Recomended pt do sitting on plinth with precaution given to other position of stretch to low back. PT-OP-R Modalities Start: 01/15/21 18:04 Freq: Status: Active Protocol: Document 01/28/21 10:45 LRN (Rec: 01/28/21 11:32 LRN [id number]) Hot Pack/Cold Pack Treatment Cold Pack Location Low back Patient Position Supine Treatment Duration (minutes) 10 PT-OP-T Assessment and Plan Start: 01/15/21 18:04 Freq: Status: Active Protocol: Document 03/05/21 08:15 LRN (Rec: 03/05/21 09:13 LRN [id number]) Physical Therapy Assessment Goals Four Impairment Decreased R hip IR ROM (25 deg 's right, 30 deg's left) Short Term Goal (STG) Pt will be independent in ROM HEP to improve R hip IR and L hip ER PROM. (02/26/21: HEP issued) STG Duration 02/15/21 (02/26/21: MET GOAL) Mcfp Goal (LTG) Pt will demonstrate symmetrical hip ER/IR PROM. LTG Duration 04/18/21 (03/05/21: Improved, NOT MET GOAL) Three Impairment Pain in R LE limiting gait ability (hip/lat thigh/foot 6/ 10, low back 4/10) Short Term Goal (STG) Decrease pain with gait to no more than 3/10. (02/26/21: Walked 1 mile on level without pain) STG Duration 02/15/21 (02/26/21: MET GOAL for level surface) [employer] Goal (LTG) Pt will be able to return to walking 3-4 miles/day without increase in RLE pain. (01/24/21: Walked 1/2 mile without lateral leg pain) (03/05/21: Walked 1 mile with pain rated 4/10) LTG Duration 04/18/21 (03/05/21: NOT MET, early DC) Two Impairment Decreased R hip AB strength, limiting ability to walk for health. Short Term Goal (STG) Improve R hip AB strength to no less than 4/5. STG Duration 02/15/21 (03/05/21: MET GOAL) [employer] Goal (LTG) Normal R hip strength improving gait tolerance to 3 miles/day walking. (Initial R hip strength: flex/ER/IR rot 4+/5, ext 4-/5, AB 3/5, AD 5/ 5). LTG Duration 04/18/21 (03/05/21: Improved, NOT MET GOAL, early DC) One Impairment Lacks appropriate self care HEP. STG Duration 02/15/21 [employer] Goal (LTG) Pt will be independent in a self care HEP. ISSUED TO DATE: STRETCHES: *R TFL, *Lateral Hip, *Hip ADD stretch, *Fig 4 (L), *Lateral Hip stretch (L), *Piriformis stretch (L). STRENGTHENING: *BKFO, *Bridge , *Prone Hip ext, *Clamshell/ Reverse Clamshell. *Issued Lev 1 TB ex for BKFO with resistance. CORE STAB: *Bridge, *Leg lift , *January. LTG Duration 04/18/21 (03/05/21: MET GOAL) Progress Towards Goals Progress Comments Goals met except for LTG 's 2, 3,4 due to early discharge and limitations for LBP and R hip pain that pt feels is related to her fibromyalgia that has been exacerbated by the COVID vaccine. Function improved per LEFS score of 64 (1-19% impaired), was 45 (40-59% impaired). Assessment Summary Assessment Pt has made good progress in reducing her lateral hip pain and returning to a walking program. She has improved symmetry of hip mobility although L hip ER and R hip IR remains a little tight. R hip mobility limited by R knee pain with ER stretch. She is on a home ROM and strengthening program for her hips and core and it is expected with more time the pt will be able to achieve her intermediate goals in the time frame initially set. Physical Therapy Plan Discharge Physical Therapy Discharge Comments Pt has made good progress and will continue with her HEP to reach her intermediate goals. Thank you for your referral.
== END 2021-03-05 11:13 | disposition home or self-care (01) ==
LOC: PHYS 08:15
PROVIDERS: PCP Internal Medicine; Referring Provider Orthopaedic Surgery; Visit Provider Orthopaedic Surgery
DX: M76.31 Iliotibial band syndrome, right leg (principal); M62.81 Muscle weakness (generalized); M54.5 Low back pain; Z74.09 Other reduced mobility
CPT/HCPCS: 97110; 97140; 97162; 97535

== ENCOUNTER → 2021-05-10 10:02 | Outpatient (CLI) | payer MEDICARE, OTHER, SELFPAY ==
--- NOTE | 2021-05-10 | DI.RAD.S_ITS ---
PROCEDURE: XR CERVICAL SPINE 2V OR 3V INDICATIONS: Cervicalgia TECHNIQUE: 3 view(s) of the cervical spine were acquired. COMPARISON: [facility], , CERVICAL SPINE 2 OR 3 VIEWS, 11/08/2010, 10:34. FINDINGS: Bones: No acute fracture identified. Moderate to severe Scattered degenerative spurring and subchondral sclerosis. Narrowing of the C5-C6 and C6-C7 disc spaces. Trace anterolisthesis of C4 on C5. Multilevel degenerative endplate sclerosis and spurring. Diffuse facet arthropathy. There is mild levocurvature. Soft tissues: No prevertebral soft tissue swelling. IMPRESSION: Multilevel cervical spondylosis and facet arthropathy as above. Minimal if any progression since 11/08/10. Dictated by: Giancarlo Blue M.D. on 05/10/2021 at 11:34 Approved by: Giancarlo Blue M.D. on 05/10/2021 at 11:36
--- NOTE | 2021-05-10 | DI.RAD.S_ITS ---
PROCEDURE: XR LUMBAR SPINE 2-3V INDICATIONS: Cervicalgia TECHNIQUE: 3 views of the lumbar spine were acquired. COMPARISON: [facility], CR, CHEST 2 VIEW, 12/01/2012, 8:33. [facility], CR, XR THORACIC SPINE 2V, 05/10/2021, 10:13. FINDINGS: Bones: No acute fracture identified. Grade 1 retrolisthesis of L1 on L2. Posterior spinal fixation with paraspinal olinda and dynamic stabilization. There interbody cage grafts at L2-L3 , L3-L4, L4-L5. Levocurvature is seen. Hardware appears grossly intact. Moderate narrowing of the L1-L2 disc space. Mild narrowing of the L5-S1 disc space. Soft tissues: Overlying bowel gas pattern is normal. No suspicious soft tissue calcifications. IMPRESSION: Postsurgical and degenerative changes as above. Moderate disc degeneration at the superior unfused segment of L1-L2 . This appears progressed since 12/01/12. Dictated by: Giancarlo Blue M.D. on 05/10/2021 at 11:31 Approved by: Giancarlo Blue M.D. on 05/10/2021 at 11:34
--- NOTE | 2021-05-10 | DI.RAD.S_ITS ---
PROCEDURE: XR THORACIC SPINE 2V INDICATIONS: Cervicalgia TECHNIQUE: 3 views of the thoracic spine were acquired. COMPARISON: [facility], THORACO-LUMBAR SPINE 2 VIEWS, 11/08/2010, 10:34. FINDINGS: Bones: No fractures or dislocations. No suspicious bony lesions. 12 pairs of ribs are noted, and appear intact where visualized. Note is made of a mild convex rightward scoliosis centered at the middle 3rd of the thoracic spine, measured at 13.8 degrees by Hernandez angle analysis. Soft tissues: No paravertebral stripe thickening. IMPRESSION: 13.8 degree convex rightward scoliosis centered at the midthoracic spine, no fracture or subluxation along the spine is seen. Dictated by: Braxton Fonseca M.D. on 05/10/2021 at 12:10 Approved by: Braxton Fonseca M.D. on 05/10/2021 at 12:12
== END ==
PROVIDERS: PCP Internal Medicine; Referring Provider Internal Medicine; Visit Provider Internal Medicine
DX: M54.2 Cervicalgia (principal); M54.9 Dorsalgia, unspecified; M47.816 Spondylosis without myelopathy or radiculopathy, lumbar region; M47.812 Spondylosis without myelopathy or radiculopathy, cervical region; M41.84 Other forms of scoliosis, thoracic region; Z98.1 Arthrodesis status
CPT/HCPCS: 72040; 72070; 72100

== ENCOUNTER 2021-09-27 10:30 | Outpatient (RCR) | payer MEDICARE, OTHER, SELFPAY ==
--- NOTE | 2021-06-14 11:49 | PT.OIE ---
Current Diagnoses Other enthesopathies, not elsewhere classified (06/14/21) Past Medical History (Last Updated 02/28/21 @ 23:38 by HERIBERTO Miles) Allergic rhinitis Anxiety Bilateral plantar fasciitis Central sleep apnea Depression (~1980) Excessive daytime sleepiness Fibromyalgia GERD (gastroesophageal reflux disease) History of alcohol dependence Hypothyroidism (acquired) Iliotibial band syndrome of right side Obstructive sleep apnea of adult Osteoarthritis Primary insomnia Restless legs syndrome (RLS) Snoring Visit Care Team Role Provider Type Rasheeda Jacob MD Primary Care Provider Physician Specialty: Internal Medicine Address: [address] [place] [address] Email: [email or web address] Jag Robledo MD Attending Provider Non-Staff Referring Provider Specialty: Internal Medicine Address: [address] [place] [address] Email: Physical Therapy Initial Evaluation PT-OP-A Visit Information Start: 06/12/21 20:58 Freq: Status: Active Protocol: Document 06/14/21 09:48 LRN (Rec: 06/14/21 11:17 LRN [id number]) Out-Patient Physical Therapy Visit Information Visit Information Visit Type Initial Evaluation Visit Start Time 09:48 Visit Stop Time 10:38 Total Visit Minutes 50 Visit Number 1 Evaluation Information Evaluation Date 06/14/21 Precautions Precautions MGUS (monoclonalgamopathy) - states primary care physician [place] use of Ultrasound. Recent back injury of abrasive type from garage door mechanism. Stage IIIB Chronic kidney disease. Chronic back pain. Bilateral knee replacement. R shoulder surgery ( acromioplasty & debridement), L shoulder surgery ( debridement). PT-OP-B Current Condition Start: 06/12/21 20:58 Freq: Status: Active Protocol: Document 06/14/21 09:48 LRN (Rec: 06/14/21 11:17 LRN [id number]) Current Condition History of Current Condition Onset Date 05/12/21 Current Complaints Pain with grasping and extension of fingers. History of Current Condition Putting together a hydralic lift and jammed the L hand ring and middle finger. Treated with ice and splinted it for a week (per internet instructions). Referring physician suggested Voltarin creme on the fingers (thinks it is helpful), so she has been doing that. She has swelling at the top of the hand and has pain with grasping things. Pain is 3/10 . Has been doing active ROM exercises. Pt is R handed. Prior Treatments and Tests Ice, splinted 1 week, now using Voltarin creme. Treatment Goals Patient/Caregiver Goals Pt goal is to be painfree and comfortable using for normal functions of gripping objects, guitar playing. Prior Functional Status Baseline Function- ADL's Independent Baseline Function- Mobility Independent Baseline Function- Recreation/Hobbies Last time played guitar was 7 yrs ago. Current Functional Impairments (Reported) Functional Limitations- ADL's Limited in ability to open jars (uses R hand), grasping can of food sometimes drops ( also did before injuring the hand), pain with dressing. Personal Factors Other Personal Factors That May Effect Chronic back pain, bilateral Therapy/Recovery knee replacement, R shoulder acromioplasty x 2, L shoulder surgery to debride cartilage. MGUS (monoclonalgamopathy) - [facility] primary care physician [place] use of Ultrasound. Recent back injury of abrasive type from garage door mechanism. Stage IIIB Chronic kidney disease. PT-OP-C Subjective Start: 06/12/21 20:58 Freq: Status: Active Protocol: Document 06/14/21 09:48 LRN (Rec: 06/14/21 11:17 LRN [id number]) Patient Questionnaires Quick Dash- Upper Extremity Quick Dash UE Score 25 Quick Dash UE Impairment 20 to 39% Impaired (Score 20- 39) OP-PT Pain Assessment Location L hand ring finger Pain Location Details Ache at rest. Lateral side of MCP jt, btn 3-4 digits Intensity 3 Scale Used Numeric (0 - 10) Description Aching,Sharp Description- Other Dorsal side btn digits 3,4; Ache at rest, sharp when using Frequency Intermittent Pain Aggravating Factors Activity Pain Alleviating Factors Inactivity L hand middle finger Pain Location Details Ache at rest. Lateral side of MCP jt, btn 3-4 digits Intensity 3 Scale Used Numeric (0 - 10) Description Aching,Sharp Description- Other Dorsal side btn digits 3,4; Ache at rest, sharp when using Frequency Intermittent Pain Aggravating Factors Activity Pain Alleviating Factors Inactivity PT-OP-H Neuro Start: 06/12/21 20:58 Freq: Status: Active Protocol: Document 06/14/21 09:48 LRN (Rec: 06/14/21 11:17 LRN [id number]) Sensation Evaluation Gross Sensation Gross Sensation WNL PT-OP-J Posture/Palpation/Skin Start: 06/12/21 20:58 Freq: Status: Active Protocol: Document 06/14/21 09:48 LRN (Rec: 06/14/21 11:17 LRN [id number]) Palpation Assessment Location L hand volar side Palpation Location Between MCP of digits 3 & 4, Middle finger tendon at crease region Palpation Findings Edema,Tenderness Palpation Details Tightness of web space of L thumb and index finger L hand dorsal side Palpation Location Between MCP of digits 3 & 4 Palpation Findings Edema,Tenderness Palpation Details Pain generally around MCP jts of L middle and ring finger, but greatest between the MCP joints. PT-OP-K Range of Motion Start: 06/12/21 20:58 Freq: Status: Active Protocol: Document 06/14/21 09:48 LRN (Rec: 06/14/21 11:17 LRN [id number]) Wrist Goniometric Range of Motion Wrist Left Wrist ROM WFL No Flexion Active (degrees) 57 Extension Active (degrees) 55 Ulnar Deviation Active (degrees) 33 Radial Deviation Active (degrees) 12 Right Wrist ROM WFL Yes Flexion Active (degrees) 57 Extension Active (degrees) 70 Ulnar Deviation Active (degrees) 41 Radial Deviation Active (degrees) 23 ROM Limitations Wrist Limitations of Range of Motion Pain Comments More pain at rest after AROM measurements taken Finger Goniometric Range of Motion Finger Right Fourth Finger ROM WFL Yes MCP Flexion Active (degrees) 78 MCP Extension Active (degrees) 10 Comments PIP active flexion is WNL Left Fourth Finger ROM WFL No MCP Flexion Active (degrees) 76 MCP Extension Active (degrees) 325 Comments PIP active flexion is WNL Right Third Finger ROM WFL Yes MCP Flexion Active (degrees) 74 MCP Extension Active (degrees) 12 Comments PIP active flexion is WNL Left Third Finger ROM WFL No MCP Flexion Active (degrees) 76 MCP Extension Active (degrees) 34 Comments PIP active flexion is WNL PT-OP-M Strength Start: 06/12/21 20:58 Freq: Status: Active Protocol: Document 06/14/21 09:48 LRN (Rec: 07/23/21 11:17 [facility] [id number]) Wrist Strength Wrist Manual Muscle Testing Right Comments Generally 5/5 Left Flexion (C7) 4+ Good+ Extension (C6) 5 Normal Ulnar Deviation 5 Normal Radial Deviation 5 Normal Comments Pain with MMT between MCP jt of digits 3 & 4. Finger/Thumb Strength Finger Manual Muscle Testing Left Fourth Flexion (fingers C8) 4 Good Extension (thumb C8) 3+ Fair+ Adduction 4+ Good+ Abduction (fingers T1) 3+ Fair+ Comments Pain between MCP jts of digits 3 & 4 is limiting strength. Left Third Flexion (fingers C8) 4 Good Extension (thumb C8) 3+ Fair+ Adduction 4+ Good+ Abduction (fingers T1) 3+ Fair+ Comments Pain between MCP jts of digits 3 & 4 is limiting strength. Hand Rounding Machine Operator/Pinch Strength Hand Dominance Hand Dominance Right Hand Strength Right Comments Rounding Machine Operator (kg) three trials: 22.5, 22.5, 21.9 Avg engineering recruiter (kg): 22.3 (norm is 22.5 kg) Left Comments Rounding Machine Operator (kg) three trials: 14, 12, 15 Avg engineering recruiter (kg): 13.7 (norm is 18.6 kg) PT-OP-Q Treatments Start: 06/12/21 20:58 Freq: Status: Active Protocol: Document 06/14/21 09:48 LRN (Rec: 06/14/21 11:17 [facility] [id number]) Self-Care/Home Management Treatment Education Patient Education Home Exercise Program Other Education Discussed results of evaluation, goals and plan of care. Pt agreeable. Activities Self-Care/Home Management Activities I/S pt in HEP: Active ROM: wrist flex, ext, UD, RD & finger AB/AD. Pt I/S to use cryotherapy after experiencing pain. PT-OP-T Assessment and Plan Start: 06/12/21 20:58 Freq: Status: Active Protocol: Document 06/14/21 09:48 LRN (Rec: 06/14/21 11:17 [facility] [id number]) Physical Therapy Assessment Rehab Potential Rehabilitation Potential Excellent Evaluation Complexity Number of Personal Factors/Comorbidities 3 or More Number of Body Systems Impaired 4 or More Clinical Presentation at Evaluation Stable Impairments Impairments Activity Tolerance,Edema,Pain, Soft Tissue Mobility,Strength Goals Three Impairment Pain with gripping (3/10) Short Term Goal (STG) Pt will be able to play her guitar for brief period without pain. STG Duration 07/11/21 [facility] Goal (LTG) Pt will be able to engineering recruiter a jar or can without pain. LTG Duration 08/13/21 Two Impairment Decreased function per UE QuickDASH score of 25 (20-39% impaired) Short Term Goal (STG) Improve L hand painfree AROM ( flex, ext, AB) with pt able to dress with less pain. STG Duration 07/05/21 [facility] Goal (LTG) Improve L hand function per UE QuickDASH score of 18 or less . LTG Duration 08/13/21 One Impairment Pt lacks self care HEP Short Term Goal (STG) Pt will be educated in self care RICE treatment for edema management. STG Duration 06/21/21 Hat Blocking Machine Operator Goal (LTG) Pt will be independent in a self care HEP. LTG Duration 08/13/21 Assessment Summary Assessment Pt presents with soft tissue dysfunction of L hand middle and ring finger MCP joints. She has mild swelling between the MCP jts and interossei region. She has weakness of finger Abductors and pain with finger extension greater than flexion with resistance. She is limited functionally due to pain with gripping activities and has weakness with engineering recruiter strength (13.7 kg, avg norm is 18 6 kg). Pt will benefit from skilled physical therapy to return pt to prior level of function and to work towards achieving the above stated goals. Physical Therapy Plan Frequency and Duration Frequency of Treatment 2x/Week Plan of Care Start Date 06/14/21 Plan of Care End Date 08/13/21 Therapeutic Interventions Therapeutic Interventions Home Exercise Program,Joint Mobilizations,Manual Therapy, Patient/Caregiver Education, Self-Care/Home Management,Soft Tissue Mobilization, Therapeutic Exercises Modalities Cold Pack/Ice Massage,Hot Packs,Paraffin Bath Next Visit Focus/Plan Next Note Type Treatment Note Next Visit Plan STM: MFR of L hand flexor tendons at zone 3 (MCP to palmar crease), Assess L hand middle & ring finger MCP jt stability. Paraffin Dip, f/b PROM flex/ ext/AB Issue HEP handouts, start tendon glides and progress L hand strengthening as tolerated. Wrist/elbow strengthening, end cryotherapy if needed.
--- NOTE | 2021-06-14 11:50 | PT.OPPOC ---
Physical, Occupational & Speech Therapy At [facility] Current Diagnoses Other enthesopathies, not elsewhere classified (06/14/21) Visit Care Team Role Provider Type Rasheeda Jacob MD Primary Care Provider Physician Specialty: Internal Medicine Address: [address] [place] [address] Email: [email or web address] Jag Robledo MD Attending Provider Non-Staff Referring Provider Specialty: Internal Medicine Address: [address] [place] [address], [id number] Email: Plan Of Care PT-OP-T Assessment and Plan Start: 06/12/21 20:58 Freq: Status: Active Protocol: Document 06/14/21 09:48 LRN (Rec: 06/14/21 11:17 LRN [id number]) Physical Therapy Assessment Rehab Potential Rehabilitation Potential Excellent Evaluation Complexity Number of Personal Factors/Comorbidities 3 or More Number of Body Systems Impaired 4 or More Clinical Presentation at Evaluation Stable Impairments Impairments Activity Tolerance,Edema,Pain, Soft Tissue Mobility,Strength Goals Three Impairment Pain with gripping (3/10) Short Term Goal (STG) Pt will be able to play her guitar for brief period without pain. STG Duration 07/11/21 Clinical Allergist Goal (LTG) Pt will be able to data processing consultant a jar or can without pain. LTG Duration 08/13/21 Two Impairment Decreased function per UE QuickDASH score of 25 (20-39% impaired) Short Term Goal (STG) Improve L hand painfree AROM ( flex, ext, AB) with pt able to dress with less pain. STG Duration 07/05/21 [facility] Goal (LTG) Improve L hand function per UE QuickDASH score of 18 or less . LTG Duration 08/13/21 One Impairment Pt lacks self care HEP Short Term Goal (STG) Pt will be educated in self care RICE treatment for edema management. STG Duration 06/21/21 [facility] Goal (LTG) Pt will be independent in a self care HEP. LTG Duration 08/13/21 Assessment Summary Assessment Pt presents with soft tissue dysfunction of L hand middle and ring finger MCP joints. She has mild swelling between the MCP jts and interossei region. She has weakness of finger Abductors and pain with finger extension greater than flexion with resistance. She is limited functionally due to pain with gripping activities and has weakness with data processing consultant strength (13.7 kg, avg norm is 18 6 kg). Pt will benefit from skilled physical therapy to return pt to prior level of function and to work towards achieving the above stated goals. Physical Therapy Plan Frequency and Duration Frequency of Treatment 2x/Week Plan of Care Start Date 06/14/21 Plan of Care End Date 08/13/21 Therapeutic Interventions Therapeutic Interventions Home Exercise Program,Joint Mobilizations,Manual Therapy, Patient/Caregiver Education, Self-Care/Home Management,Soft Tissue Mobilization, Therapeutic Exercises Modalities Cold Pack/Ice Massage,Hot Packs,Paraffin Bath Next Visit Focus/Plan Next Note Type Treatment Note Next Visit Plan STM: MFR of L hand flexor tendons at zone 3 (MCP to palmar crease), Assess L hand middle & ring finger MCP jt stability. Paraffin Dip, f/b PROM flex/ ext/AB Issue HEP handouts, start tendon glides and progress L hand strengthening as tolerated. Wrist/elbow strengthening, end cryotherapy if needed. Plan of Care Dates Plan of Care Start Date 06/14/21 Plan of Care End Date 08/13/21 Electronically Signed by: Elza Reyes, PT 06/14/21 3320 Please Sign and Return: I have reviewed this Plan of Care and certify that the skilled therapy services above are required to meet the patient?s needs. Physician Signature Date Printed Name and Credentials Clinical Instructor Signature Printed Name and Credentials
--- NOTE | 2021-06-17 11:27 | PT.OTN ---
Current Diagnoses Other enthesopathies, not elsewhere classified (06/17/21) Physical Therapy Treatment Note PT-OP-A Visit Information Start: 06/12/21 20:58 Freq: Status: Active Protocol: Document 06/17/21 09:06 LRN (Rec: 06/17/21 09:51 LRN [id number]) Out-Patient Physical Therapy Visit Information Visit Information Visit Type Treatment Note Visit Start Time 09:06 Visit Stop Time 09:46 Total Visit Minutes 40 Visit Number 2 Evaluation Information Evaluation Date 06/14/21 Precautions Precautions MGUS (monoclonalgamopathy) - [facility] primary care physician heriberto use of Ultrasound. Recent back injury of abrasive type from garage door mechanism. Stage IIIB Chronic kidney disease. Chronic back pain. Bilateral knee replacement. R shoulder surgery ( acromioplasty & debridement), L shoulder surgery ( debridement). PT-OP-B Current Condition Start: 06/12/21 20:58 Freq: Status: Active Protocol: Document 06/14/21 09:48 LRN (Rec: 06/14/21 11:17 LRN [id number]) Current Condition History of Current Condition Onset Date 05/12/21 Current Complaints Pain with grasping and extension of fingers. History of Current Condition Putting together a hydralic lift and jammed the L hand ring and middle finger. Treated with ice and splinted it for a week (per internet instructions). Referring physician suggested Voltarin creme on the fingers (thinks it is helpful), so she has been doing that. She has swelling at the top of the hand and has pain with grasping things. Pain is 3/10 . Has been doing active ROM exercises. Pt is R handed. Prior Treatments and Tests Ice, splinted 1 week, now using Voltarin creme. Treatment Goals Patient/Caregiver Goals Pt goal is to be painfree and comfortable using for normal functions of gripping objects, guitar playing. Prior Functional Status Baseline Function- ADL's Independent Baseline Function- Mobility Independent Baseline Function- Recreation/Hobbies Last time played guitar was 7 yrs ago. Current Functional Impairments (Reported) Functional Limitations- ADL's Limited in ability to open jars (uses R hand), grasping can of food sometimes drops ( also did before injuring the hand), pain with dressing. Personal Factors Other Personal Factors That May Effect Chronic back pain, bilateral Therapy/Recovery knee replacement, R shoulder acromioplasty x 2, L shoulder surgery to debride cartilage. MGUS (monoclonalgamopathy) - states primary care physician [place] use of Ultrasound. Recent back injury of abrasive type from garage door mechanism. Stage IIIB Chronic kidney disease. PT-OP-C Subjective Start: 06/12/21 20:58 Freq: Status: Active Protocol: Document 06/17/21 09:06 LRN (Rec: 06/17/21 09:51 LRN [id number]) OP-PT Subjective Patient Comments Patient Comments Stretching a lot, feels like her L hand ring and middle finger is more swolllen. Has been potting plants. PT-OP-H Neuro Start: 06/12/21 20:58 Freq: Status: Active Protocol: Document 06/14/21 09:48 LRN (Rec: 06/14/21 11:17 LRN [id number]) Sensation Evaluation Gross Sensation Gross Sensation WNL PT-OP-J Posture/Palpation/Skin Start: 06/12/21 20:58 Freq: Status: Active Protocol: Document 06/14/21 09:48 LRN (Rec: 06/14/21 11:17 LRN [id number]) Palpation Assessment Location L hand volar side Palpation Location Between MCP of digits 3 & 4, Middle finger tendon at crease region Palpation Findings Edema,Tenderness Palpation Details Tightness of web space of L thumb and index finger L hand dorsal side Palpation Location Between MCP of digits 3 & 4 Palpation Findings Edema,Tenderness Palpation Details Pain generally around MCP jts of L middle and ring finger, but greatest between the MCP joints. PT-OP-K Range of Motion Start: 06/12/21 20:58 Freq: Status: Active Protocol: Document 06/14/21 09:48 LRN (Rec: 06/14/21 11:17 LRN [id number]) Wrist Goniometric Range of Motion Wrist Left Wrist ROM WFL No Flexion Active (degrees) 57 Extension Active (degrees) 55 Ulnar Deviation Active (degrees) 33 Radial Deviation Active (degrees) 12 Right Wrist ROM WFL Yes Flexion Active (degrees) 57 Extension Active (degrees) 70 Ulnar Deviation Active (degrees) 41 Radial Deviation Active (degrees) 23 ROM Limitations Wrist Limitations of Range of Motion Pain Comments More pain at rest after AROM measurements taken Finger Goniometric Range of Motion Finger Right Fourth Finger ROM WFL Yes MCP Flexion Active (degrees) 78 MCP Extension Active (degrees) 10 Comments PIP active flexion is WNL Left Fourth Finger ROM WFL No MCP Flexion Active (degrees) 76 MCP Extension Active (degrees) 325 Comments PIP active flexion is WNL Right Third Finger ROM WFL Yes MCP Flexion Active (degrees) 74 MCP Extension Active (degrees) 12 Comments PIP active flexion is WNL Left Third Finger ROM WFL No MCP Flexion Active (degrees) 76 MCP Extension Active (degrees) 34 Comments PIP active flexion is WNL PT-OP-M Strength Start: 06/12/21 20:58 Freq: Status: Active Protocol: Document 06/14/21 09:48 LRN (Rec: 06/14/21 11:17 LRN [id number]) Wrist Strength Wrist Manual Muscle Testing Right Comments Generally 5/5 Left Flexion (C7) 4+ Good+ Extension (C6) 5 Normal Ulnar Deviation 5 Normal Radial Deviation 5 Normal Comments Pain with MMT between MCP jt of digits 3 & 4. Finger/Thumb Strength Finger Manual Muscle Testing Left Fourth Flexion (fingers C8) 4 Good Extension (thumb C8) 3+ Fair+ Adduction 4+ Good+ Abduction (fingers T1) 3+ Fair+ Comments Pain between MCP jts of digits 3 & 4 is limiting strength. Left Third Flexion (fingers C8) 4 Good Extension (thumb C8) 3+ Fair+ Adduction 4+ Good+ Abduction (fingers T1) 3+ Fair+ Comments Pain between MCP jts of digits 3 & 4 is limiting strength. Hand Taxicab Driver/Pinch Strength Hand Dominance Hand Dominance Right Hand Strength Right Comments Taxicab Driver (kg) three trials: 22.5, 22.5, 21.9 Avg deaf/hard of hearing specialist (kg): 22.3 (norm is 22.5 kg) Left Comments Taxicab Driver (kg) three trials: 14, 12, 15 Avg deaf/hard of hearing specialist (kg): 13.7 (norm is 18.6 kg) PT-OP-Q Treatments Start: 06/12/21 20:58 Freq: Status: Active Protocol: Document 06/17/21 09:06 LRN (Rec: 06/17/21 09:51 LRN [id number]) Therapeutic Exercises Sitting Exercises Wrist Ext Sitting Exercise Name Active stretch Side left Reps/Minutes 2' Wrist flex Sitting Exercise Name Active stretch Side left Reps/Minutes 2' Finger ext Sitting Exercise Name EXT @ MCP jt: Middle & Ring finger Side left Reps/Minutes 30x each L ring/middle finger AB Sitting Exercise Name Active AB stretch, btn fingers 2-5 Side left Reps/Minutes 10 hold x 6 Comments Extra time to determine max tolerance to stretch and AROM. L ring/middle finger ext Sitting Exercise Name Extension: Active/Passive stretch Side left Reps/Minutes 10 hold x 6 L ring/middle finger MCP jt Sitting Exercise Name Flexion: Active/Passive stretch Side left Reps/Minutes 10 holds x 6 each Comments Extra time to determine max tolerance to stretch and AROM. Self-Care/Home Management Treatment Education Patient Education Pain Management Activities Self-Care/Home Management Activities Issued & reviewed handouts for edema management: RICE and contrast bath treatments. PT-OP-R Modalities Start: 06/12/21 20:58 Freq: Status: Active Protocol: Document 06/17/21 09:06 LRN (Rec: 06/17/21 09:51 LRN [id number]) Paraffin Bath Treatment Left Hand Treatment Technique Dip-immersion Number Wax Layers (layers) 6 Duration (minutes) 10 Patient Tolerance Good PT-OP-T Assessment and Plan Start: 06/12/21 20:58 Freq: Status: Active Protocol: Document 06/17/21 09:06 LRN (Rec: 06/17/21 09:51 [facility] [id number]) Physical Therapy Assessment Goals Three Impairment Pain with gripping (3/10) Short Term Goal (STG) Pt will be able to play her guitar for brief period without pain. STG Duration 07/11/21 Financial Report Service Sales Agent Goal (LTG) Pt will be able to deaf/hard of hearing specialist a jar or can without pain. LTG Duration 08/13/21 Two Impairment Decreased function per UE QuickDASH score of 25 (20-39% impaired) Short Term Goal (STG) Improve L hand painfree AROM ( flex, ext, AB) with pt able to dress with less pain. STG Duration 07/05/21 Group Home Goal (LTG) Improve L hand function per UE QuickDASH score of 18 or less . LTG Duration 08/13/21 One Impairment Pt lacks self care HEP Short Term Goal (STG) Pt will be educated in self care RICE treatment for edema management. STG Duration 06/21/21 (06/17/21: MET GOAL) Financial Report Service Sales Agent Goal (LTG) Pt will be independent in a self care HEP. LTG Duration 08/13/21 Assessment Summary Assessment Mild increased PA mobility at MCP jts of L hand middle and ring fingers. Pt has MCP jt pain with finger flex/ext at end-range stretching and AROM. Pain limiting ROM of MCP ext of L hand ring finger. + response to Paraffin Dip with decrease swelling and less pain with ROM ex's after dip. Physical Therapy Plan Frequency and Duration Frequency of Treatment 2x/Week Plan of Care Start Date 06/14/21 Plan of Care End Date 08/13/21 Next Visit Focus/Plan Next Note Type Treatment Note Next Visit Plan Assess response to last treatment of Paraffin & stretch, and pt compliance to pain/edema management. STM: MFR of L hand flexor tendons at zone 3 (MCP to palmar crease), Paraffin Dip, f/b PROM flex/ ext/AB Issue HEP handouts, Start tendon glides and progress L hand strengthening as tolerated. Wrist/elbow strengthening, end cryotherapy if needed.
--- NOTE | 2021-06-24 09:00 | PT.OTN ---
Current Diagnoses Other enthesopathies, not elsewhere classified (06/24/21) Physical Therapy Treatment Note PT-OP-A Visit Information Start: 06/12/21 20:58 Freq: Status: Active Protocol: Document 06/24/21 08:16 LRN (Rec: 06/24/21 08:59 LRN [id number]) Out-Patient Physical Therapy Visit Information Visit Information Visit Type Treatment Note Visit Start Time 08:16 Visit Stop Time 08:56 Total Visit Minutes 40 Visit Number 3 Evaluation Information Evaluation Date 06/14/21 Precautions Precautions MGUS (monoclonalgamopathy) - [facility] primary care physician heriberto use of Ultrasound. Recent back injury of abrasive type from garage door mechanism. Stage IIIB Chronic kidney disease. Chronic back pain. Bilateral knee replacement. R shoulder surgery ( acromioplasty & debridement), L shoulder surgery ( debridement). PT-OP-B Current Condition Start: 06/12/21 20:58 Freq: Status: Active Protocol: Document 06/14/21 09:48 LRN (Rec: 06/14/21 11:17 LRN [id number]) Current Condition History of Current Condition Onset Date 05/12/21 Current Complaints Pain with grasping and extension of fingers. History of Current Condition Putting together a hydralic lift and jammed the L hand ring and middle finger. Treated with ice and splinted it for a week (per internet instructions). Referring physician suggested Voltarin creme on the fingers (thinks it is helpful), so she has been doing that. She has swelling at the top of the hand and has pain with grasping things. Pain is 3/10 . Has been doing active ROM exercises. Pt is R handed. Prior Treatments and Tests Ice, splinted 1 week, now using Voltarin creme. Treatment Goals Patient/Caregiver Goals Pt goal is to be painfree and comfortable using for normal functions of gripping objects, guitar playing. Prior Functional Status Baseline Function- ADL's Independent Baseline Function- Mobility Independent Baseline Function- Recreation/Hobbies Last time played guitar was 7 yrs ago. Current Functional Impairments (Reported) Functional Limitations- ADL's Limited in ability to open jars (uses R hand), grasping can of food sometimes drops ( also did before injuring the hand), pain with dressing. Personal Factors Other Personal Factors That May Effect Chronic back pain, bilateral Therapy/Recovery knee replacement, R shoulder acromioplasty x 2, L shoulder surgery to debride cartilage. MGUS (monoclonalgamopathy) - states primary care physician heriberto use of Ultrasound. Recent back injury of abrasive type from garage door mechanism. Stage IIIB Chronic kidney disease. PT-OP-C Subjective Start: 06/12/21 20:58 Freq: Status: Active Protocol: Document 06/24/21 08:16 LRN (Rec: 06/24/21 08:59 LRN [id number]) OP-PT Subjective Patient Comments Patient Comments States the use of rubberband for ex made her more painful, so stopped. Increased use of ice at home and hot water she does dishes more frequent. PT-OP-H Neuro Start: 06/12/21 20:58 Freq: Status: Active Protocol: Document 06/14/21 09:48 LRN (Rec: 06/14/21 11:17 LRN [id number]) Sensation Evaluation Gross Sensation Gross Sensation WNL PT-OP-J Posture/Palpation/Skin Start: 06/12/21 20:58 Freq: Status: Active Protocol: Document 06/14/21 09:48 LRN (Rec: 06/14/21 11:17 LRN [id number]) Palpation Assessment Location L hand volar side Palpation Location Between MCP of digits 3 & 4, Middle finger tendon at crease region Palpation Findings Edema,Tenderness Palpation Details Tightness of web space of L thumb and index finger L hand dorsal side Palpation Location Between MCP of digits 3 & 4 Palpation Findings Edema,Tenderness Palpation Details Pain generally around MCP jts of L middle and ring finger, but greatest between the MCP joints. PT-OP-K Range of Motion Start: 06/12/21 20:58 Freq: Status: Active Protocol: Document 06/14/21 09:48 LRN (Rec: 06/14/21 11:17 LRN [id number]) Wrist Goniometric Range of Motion Wrist Left Wrist ROM WFL No Flexion Active (degrees) 57 Extension Active (degrees) 55 Ulnar Deviation Active (degrees) 33 Radial Deviation Active (degrees) 12 Right Wrist ROM WFL Yes Flexion Active (degrees) 57 Extension Active (degrees) 70 Ulnar Deviation Active (degrees) 41 Radial Deviation Active (degrees) 23 ROM Limitations Wrist Limitations of Range of Motion Pain Comments More pain at rest after AROM measurements taken Finger Goniometric Range of Motion Finger Right Fourth Finger ROM WFL Yes MCP Flexion Active (degrees) 78 MCP Extension Active (degrees) 10 Comments PIP active flexion is WNL Left Fourth Finger ROM WFL No MCP Flexion Active (degrees) 76 MCP Extension Active (degrees) 325 Comments PIP active flexion is WNL Right Third Finger ROM WFL Yes MCP Flexion Active (degrees) 74 MCP Extension Active (degrees) 12 Comments PIP active flexion is WNL Left Third Finger ROM WFL No MCP Flexion Active (degrees) 76 MCP Extension Active (degrees) 34 Comments PIP active flexion is WNL PT-OP-M Strength Start: 06/12/21 20:58 Freq: Status: Active Protocol: Document 06/14/21 09:48 LRN (Rec: 06/14/21 11:17 LRN [id number]) Wrist Strength Wrist Manual Muscle Testing Right Comments Generally 5/5 Left Flexion (C7) 4+ Good+ Extension (C6) 5 Normal Ulnar Deviation 5 Normal Radial Deviation 5 Normal Comments Pain with MMT between MCP jt of digits 3 & 4. Finger/Thumb Strength Finger Manual Muscle Testing Left Fourth Flexion (fingers C8) 4 Good Extension (thumb C8) 3+ Fair+ Adduction 4+ Good+ Abduction (fingers T1) 3+ Fair+ Comments Pain between MCP jts of digits 3 & 4 is limiting strength. Left Third Flexion (fingers C8) 4 Good Extension (thumb C8) 3+ Fair+ Adduction 4+ Good+ Abduction (fingers T1) 3+ Fair+ Comments Pain between MCP jts of digits 3 & 4 is limiting strength. Hand Fabric And Accessories Estimator/Pinch Strength Hand Dominance Hand Dominance Right Hand Strength Right Comments Fabric And Accessories Estimator (kg) three trials: 22.5, 22.5, 21.9 Avg crude oil driver (kg): 22.3 (norm is 22.5 kg) Left Comments Fabric And Accessories Estimator (kg) three trials: 14, 12, 15 Avg crude oil driver (kg): 13.7 (norm is 18.6 kg) PT-OP-Q Treatments Start: 06/12/21 20:58 Freq: Status: Active Protocol: Document 06/24/21 08:16 LRN (Rec: 06/24/21 08:59 LRN [id number]) Therapeutic Exercises Sitting Exercises Radial Deviation Sitting Exercise Name Self: Active & AA Radial Deviation stretch Side left Reps/Minutes 2' Ulnar Deviation Sitting Exercise Name Self: Active & AA Ulnar Deviation stretch Side left Reps/Minutes 2' Active flex/ext Sitting Exercise Name Active flex/ext Side left Reps/Minutes 10x Comments Caused ache btn digits3&4, rated 3/109 Pron/Sup Sitting Exercise Name Pron/Sup Side left Reps/Minutes 10x Wrist Ext Sitting Exercise Name Active stretch Side left Reps/Minutes 20 x 8 Wrist flex Sitting Exercise Name Active stretch Side left Reps/Minutes 20 x 8 Finger ext Sitting Exercise Name EXT @ MCP jt: Index & Middle finger Side left Reps/Minutes 10x each Comments Deferred ring finger due to pain at MCP jt L ring/middle finger AB Sitting Exercise Name Active self asstd AB stretch, btn fingers 2-5 Side left Reps/Minutes 10 hold x 6 Comments Extra time to determine max tolerance to stretch and AROM. L ring/middle finger ext Sitting Exercise Name Extension: Active/Passive stretch Side left Reps/Minutes 5x, DC'd due to ring finger pain in interossei Manual Therapy Treatment Soft Tissue Mobilization L Wrist extensors Comments 8' L Fitzgerald side, Zone 1 Comments 5' Self-Care/Home Management Treatment Education Patient Education Home Exercise Program Activities Self-Care/Home Management Activities Issued & reviewed tendon glides. PT-OP-R Modalities Start: 06/12/21 20:58 Freq: Status: Active Protocol: Document 06/24/21 08:16 LRN (Rec: 06/24/21 08:59 LRN [id number]) Paraffin Bath Treatment Left Hand Treatment Technique Dip-immersion Number Wax Layers (layers) 6 Duration (minutes) 8 Patient Tolerance Good PT-OP-T Assessment and Plan Start: 06/12/21 20:58 Freq: Status: Active Protocol: Document 06/24/21 08:16 LRN (Rec: 06/24/21 08:59 N [id number]) Physical Therapy Assessment Goals Three Impairment Pain with gripping (10) Short Term Goal (STG) Pt will be able to play her guitar for brief period without pain. STG Duration 07/11/21 Shelter Goal (LTG) Pt will be able to crude oil driver a jar or can without pain. LTG Duration 08/13/21 Two Impairment Decreased function per UE QuickDASH score of 25 (20-39% impaired) Short Term Goal (STG) Improve L hand painfree AROM ( flex, ext, AB) with pt able to dress with less pain. STG Duration 07/05/21 Shelter Goal (LTG) Improve L hand function per UE QuickDASH score of 18 or less . LTG Duration 08/13/21 One Impairment Pt lacks self care HEP Short Term Goal (STG) Pt will be educated in self care RICE treatment for edema management. STG Duration 06/21/21 (06/17/21: MET GOAL) Nursing Resident Goal (LTG) Pt will be independent in a self care HEP. LTG Duration 08/13/21 Assessment Summary Assessment Pt had + response to paraffin dip, but increased pain with finger ext using rubberband. Pt not able to tolerate ring finger ext due to pain at MCP that radiates to adjacent areas of interossei. + response to Paraffin Dip at end of treatment. Physical Therapy Plan Frequency and Duration Frequency of Treatment 2x/Week Plan of Care Start Date 06/14/21 Plan of Care End Date 08/13/21 Next Visit Focus/Plan Next Note Type Treatment Note Next Visit Plan Assess response to flinger glide HEP issued. STM: MFR of L hand flexor tendons at zone 3 (MCP to palmar crease), Paraffin Dip, f/b PROM flex/ ext/AB Issue HEP handouts, Start tendon glides and progress L hand strengthening as tolerated. Wrist/elbow strengthening, end cryotherapy if needed.
--- NOTE | 2021-07-02 12:10 | PT.OTN ---
Current Diagnoses Other enthesopathies, not elsewhere classified (07/02/21) Physical Therapy Treatment Note PT-OP-A Visit Information Start: 06/12/21 20:58 Freq: Status: Active Protocol: Document 07/02/21 10:26 LRN (Rec: 07/02/21 11:54 LRN [id number]) Out-Patient Physical Therapy Visit Information Visit Information Visit Type Treatment Note Visit Start Time 10:26 Visit Stop Time 11:13 Total Visit Minutes 47 Visit Number 4 Evaluation Information Evaluation Date 06/14/21 Precautions Precautions MGUS (monoclonalgamopathy) - [facility] primary care physician heriberto use of Ultrasound. Recent back injury of abrasive type from garage door mechanism. Stage IIIB Chronic kidney disease. Chronic back pain. Bilateral knee replacement. R shoulder surgery ( acromioplasty & debridement), L shoulder surgery ( debridement). PT-OP-B Current Condition Start: 06/12/21 20:58 Freq: Status: Active Protocol: Document 06/14/21 09:48 LRN (Rec: 06/14/21 11:17 LRN [id number]) Current Condition History of Current Condition Onset Date 05/12/21 Current Complaints Pain with grasping and extension of fingers. History of Current Condition Putting together a hydralic lift and jammed the L hand ring and middle finger. Treated with ice and splinted it for a week (per internet instructions). Referring physician suggested Voltarin creme on the fingers (thinks it is helpful), so she has been doing that. She has swelling at the top of the hand and has pain with grasping things. Pain is 3/10 . Has been doing active ROM exercises. Pt is R handed. Prior Treatments and Tests Ice, splinted 1 week, now using Voltarin creme. Treatment Goals Patient/Caregiver Goals Pt goal is to be painfree and comfortable using for normal functions of gripping objects, guitar playing. Prior Functional Status Baseline Function- ADL's Independent Baseline Function- Mobility Independent Baseline Function- Recreation/Hobbies Last time played guitar was 7 yrs ago. Current Functional Impairments (Reported) Functional Limitations- ADL's Limited in ability to open jars (uses R hand), grasping can of food sometimes drops ( also did before injuring the hand), pain with dressing. Personal Factors Other Personal Factors That May Effect Chronic back pain, bilateral Therapy/Recovery knee replacement, R shoulder acromioplasty x 2, L shoulder surgery to debride cartilage. MGUS (monoclonalgamopathy) - states primary care physician heriberto use of Ultrasound. Recent back injury of abrasive type from garage door mechanism. Stage IIIB Chronic kidney disease. PT-OP-C Subjective Start: 06/12/21 20:58 Freq: Status: Active Protocol: Document 07/02/21 10:26 LRN (Rec: 07/02/21 11:54 LRN [id number]) OP-PT Subjective Patient Comments Patient Comments Pulled weeds with R hand causing lots of R front/back hip pain, but feeling better today. Has same amount of swelling and pain in the morning. Pain down ring finger that has started. Has done hot/cold. Wakes with pain until noon, then turns intermittent. PT-OP-H Neuro Start: 06/12/21 20:58 Freq: Status: Active Protocol: Document 06/14/21 09:48 LRN (Rec: 06/14/21 11:17 LRN [id number]) Sensation Evaluation Gross Sensation Gross Sensation WNL PT-OP-J Posture/Palpation/Skin Start: 06/12/21 20:58 Freq: Status: Active Protocol: Document 06/14/21 09:48 LRN (Rec: 06/14/21 11:17 LRN [id number]) Palpation Assessment Location L hand volar side Palpation Location Between MCP of digits 3 & 4, Middle finger tendon at crease region Palpation Findings Edema,Tenderness Palpation Details Tightness of web space of L thumb and index finger L hand dorsal side Palpation Location Between MCP of digits 3 & 4 Palpation Findings Edema,Tenderness Palpation Details Pain generally around MCP jts of L middle and ring finger, but greatest between the MCP joints. PT-OP-K Range of Motion Start: 06/12/21 20:58 Freq: Status: Active Protocol: Document 06/14/21 09:48 LRN (Rec: 06/14/21 11:17 LRN [id number]) Wrist Goniometric Range of Motion Wrist Left Wrist ROM WFL No Flexion Active (degrees) 57 Extension Active (degrees) 55 Ulnar Deviation Active (degrees) 33 Radial Deviation Active (degrees) 12 Right Wrist ROM WFL Yes Flexion Active (degrees) 57 Extension Active (degrees) 70 Ulnar Deviation Active (degrees) 41 Radial Deviation Active (degrees) 23 ROM Limitations Wrist Limitations of Range of Motion Pain Comments More pain at rest after AROM measurements taken Finger Goniometric Range of Motion Finger Right Fourth Finger ROM WFL Yes MCP Flexion Active (degrees) 78 MCP Extension Active (degrees) 10 Comments PIP active flexion is WNL Left Fourth Finger ROM WFL No MCP Flexion Active (degrees) 76 MCP Extension Active (degrees) 325 Comments PIP active flexion is WNL Right Third Finger ROM WFL Yes MCP Flexion Active (degrees) 74 MCP Extension Active (degrees) 12 Comments PIP active flexion is WNL Left Third Finger ROM WFL No MCP Flexion Active (degrees) 76 MCP Extension Active (degrees) 34 Comments PIP active flexion is WNL PT-OP-M Strength Start: 06/12/21 20:58 Freq: Status: Active Protocol: Document 06/14/21 09:48 LRN (Rec: 06/14/21 11:17 LRN [id number]) Wrist Strength Wrist Manual Muscle Testing Right Comments Generally 5/5 Left Flexion (C7) 4+ Good+ Extension (C6) 5 Normal Ulnar Deviation 5 Normal Radial Deviation 5 Normal Comments Pain with MMT between MCP jt of digits 3 & 4. Finger/Thumb Strength Finger Manual Muscle Testing Left Fourth Flexion (fingers C8) 4 Good Extension (thumb C8) 3+ Fair+ Adduction 4+ Good+ Abduction (fingers T1) 3+ Fair+ Comments Pain between MCP jts of digits 3 & 4 is limiting strength. Left Third Flexion (fingers C8) 4 Good Extension (thumb C8) 3+ Fair+ Adduction 4+ Good+ Abduction (fingers T1) 3+ Fair+ Comments Pain between MCP jts of digits 3 & 4 is limiting strength. Hand Call Center Agent/Pinch Strength Hand Dominance Hand Dominance Right Hand Strength Right Comments Call Center Agent (kg) three trials: 22.5, 22.5, 21.9 Avg solar power installer (kg): 22.3 (norm is 22.5 kg) Left Comments Call Center Agent (kg) three trials: 14, 12, 15 Avg solar power installer (kg): 13.7 (norm is 18.6 kg) PT-OP-Q Treatments Start: 06/12/21 20:58 Freq: Status: Active Protocol: Document 07/02/21 10:26 LRN (Rec: 07/02/21 11:54 LRN [id number]) Therapeutic Exercises Supine Exercises L UE n. glide w/shldr drop Supine Exercise Name L shoulder drops f/b drop and neck rotations Side left Reps/Minutes 6' Comments Towel roll supporting neck C Shira Ext Supine Exercise Name C. Isometric Ext w/towel roll support Reps/Minutes 10 Hold x 10, 5' Comments Towel roll supporting neck C. Elongation Supine Exercise Name Neck elongation with support Occiput>L3/L4 Reps/Minutes 7' Comments Towel roll supporting Occiput > L3/L4 Manual Therapy Treatment Manual Traction Cervical Details Head position flexed: 30 deg's , neutral, 60 deg's Body Position hooklying Reps/Duration 10 min & 13 min Comments Patient reports pain relief in L ring finger. Pain reduction best at 30 deg' s flexed and neutral. Self-Care/Home Management Treatment Education Patient Education Body Mechanics,Pain Management ,Posture Other Education Educated pt in proper posturing for weeding and general activities in home. Educated pt in proper positioning for nighttime sleep with use of pillows for head support and blocking of head of unwanted movements and positioning. Discussed and educated pt in use of heat for pain management techniques during her neck ex's to eliminate L ring finger pain. Discussed precautions with use of home overdoor traction units and other C. tx units. Recommended pt not to use due to Osteopenia hx and age. PT-OP-R Modalities Start: 06/12/21 20:58 Freq: Status: Active Protocol: Document 06/24/21 08:16 LRN (Rec: 06/24/21 08:59 LRN [id number]) Paraffin Bath Treatment Left Hand Treatment Technique Dip-immersion Number Wax Layers (layers) 6 Duration (minutes) 8 Patient Tolerance Good PT-OP-T Assessment and Plan Start: 06/12/21 20:58 Freq: Status: Active Protocol: Document 07/02/21 10:26 LRN (Rec: 07/02/21 11:54 LRN [id number]) Physical Therapy Assessment Goals Three Impairment Pain with gripping (3/10) Short Term Goal (STG) Pt will be able to play her guitar for brief period without pain. STG Duration 07/11/21 Assisted Goal (LTG) Pt will be able to solar power installer a jar or can without pain. LTG Duration 08/13/21 Two Impairment Decreased function per UE QuickDASH score of 25 (20-39% impaired) Short Term Goal (STG) Improve L hand painfree AROM ( flex, ext, AB) with pt able to dress with less pain. STG Duration 07/05/21 Health Services Coordinator Goal (LTG) Improve L hand function per UE QuickDASH score of 18 or less . LTG Duration 08/13/21 One Impairment Pt lacks self care HEP Short Term Goal (STG) Pt will be educated in self care RICE treatment for edema management. STG Duration 06/21/21 (06/17/21: MET GOAL) Assisted Goal (LTG) Pt will be independent in a self care HEP. LTG Duration 08/13/21 Assessment Summary Assessment Pt shows signs C involvement of Lhand pain. Pt had + response to manual C tx with no signifant relief at 60 deg' s cervical flex, but good relief at 10 & 30 deg's flexion. Pt able to obtain relief of pain with neck elongation if unsupported at C5-C7 and no increase pain with C. shira ext with full neck support. Pt required extra time for positioning during neck elongation ex and c. shira exercise. Pt had no pain in L hand ring finger and was able to do finger ext w/o pain by end of treatment. Physical Therapy Plan Frequency and Duration Frequency of Treatment 2x/Week Plan of Care Start Date 06/14/21 Plan of Care End Date 08/13/21 Next Visit Focus/Plan Next Note Type Treatment Note Next Visit Plan Assess response to change in nighttime positioning and neck stab/self tx exercise. Progress UE n. glides. Progress L hand, wrist, elbow strengthening as tolerated. If needed: STM: MFR of L hand flexor tendons at zone 3 (MCP to palmar crease), ? Paraffin Dip, f/b PROM flex/ ext/AB Issue HEP handouts.
--- NOTE | 2021-07-15 17:18 | PT.OTN ---
Current Diagnoses Other enthesopathies, not elsewhere classified (07/15/21) Physical Therapy Treatment Note PT-OP-A Visit Information Start: 06/12/21 20:58 Freq: Status: Active Protocol: Document 07/15/21 12:51 LRN (Rec: 07/15/21 13:36 LRN [id number]) Out-Patient Physical Therapy Visit Information Visit Information Visit Type Treatment Note Visit Start Time 12:51 Visit Stop Time 13:31 Total Visit Minutes 40 Visit Number 5 Evaluation Information Evaluation Date 06/14/21 Precautions Precautions MGUS (monoclonalgamopathy) - [facility] primary care physician heriberto use of Ultrasound. Recent back injury of abrasive type from garage door mechanism. Stage IIIB Chronic kidney disease. Chronic back pain. Bilateral knee replacement. R shoulder surgery ( acromioplasty & debridement), L shoulder surgery ( debridement). PT-OP-B Current Condition Start: 06/12/21 20:58 Freq: Status: Active Protocol: Document 06/14/21 09:48 LRN (Rec: 06/14/21 11:17 LRN [id number]) Current Condition History of Current Condition Onset Date 05/12/21 Current Complaints Pain with grasping and extension of fingers. History of Current Condition Putting together a hydralic lift and jammed the L hand ring and middle finger. Treated with ice and splinted it for a week (per internet instructions). Referring physician suggested Voltarin creme on the fingers (thinks it is helpful), so she has been doing that. She has swelling at the top of the hand and has pain with grasping things. Pain is 3/10 . Has been doing active ROM exercises. Pt is R handed. Prior Treatments and Tests Ice, splinted 1 week, now using Voltarin creme. Treatment Goals Patient/Caregiver Goals Pt goal is to be painfree and comfortable using for normal functions of gripping objects, guitar playing. Prior Functional Status Baseline Function- ADL's Independent Baseline Function- Mobility Independent Baseline Function- Recreation/Hobbies Last time played guitar was 7 yrs ago. Current Functional Impairments (Reported) Functional Limitations- ADL's Limited in ability to open jars (uses R hand), grasping can of food sometimes drops ( also did before injuring the hand), pain with dressing. Personal Factors Other Personal Factors That May Effect Chronic back pain, bilateral Therapy/Recovery knee replacement, R shoulder acromioplasty x 2, L shoulder surgery to debride cartilage. MGUS (monoclonalgamopathy) - states primary care physician heriberto use of Ultrasound. Recent back injury of abrasive type from garage door mechanism. Stage IIIB Chronic kidney disease. PT-OP-C Subjective Start: 06/12/21 20:58 Freq: Status: Active Protocol: Document 07/15/21 12:51 LRN (Rec: 07/15/21 13:36 LRN [id number]) OP-PT Subjective Patient Comments Patient Comments Improved in motion of finger AB. Not better with R L wrist Ext. Feels she is at a plateau. Easier to hold steering wheel driving to [place] and hasn't noticed pain with dressing. PT-OP-H Neuro Start: 06/12/21 20:58 Freq: Status: Active Protocol: Document 06/14/21 09:48 LRN (Rec: 06/14/21 11:17 LRN [id number]) Sensation Evaluation Gross Sensation Gross Sensation WNL PT-OP-J Posture/Palpation/Skin Start: 06/12/21 20:58 Freq: Status: Active Protocol: Document 06/14/21 09:48 LRN (Rec: 06/14/21 11:17 LRN [id number]) Palpation Assessment Location L hand volar side Palpation Location Between MCP of digits 3 & 4, Middle finger tendon at crease region Palpation Findings Edema,Tenderness Palpation Details Tightness of web space of L thumb and index finger L hand dorsal side Palpation Location Between MCP of digits 3 & 4 Palpation Findings Edema,Tenderness Palpation Details Pain generally around MCP jts of L middle and ring finger, but greatest between the MCP joints. PT-OP-K Range of Motion Start: 06/12/21 20:58 Freq: Status: Active Protocol: Document 07/15/21 12:51 LRN (Rec: 07/15/21 17:13 LRN [id number]) Wrist Goniometric Range of Motion Wrist Left Wrist ROM WFL Yes Flexion Active (degrees) 72 Extension Active (degrees) 80 Ulnar Deviation Active (degrees) 45 Radial Deviation Active (degrees) 30 Right Wrist ROM WFL Yes Flexion Active (degrees) 72 Extension Active (degrees) 72 Ulnar Deviation Active (degrees) 45 Radial Deviation Active (degrees) 22 Finger Goniometric Range of Motion Finger Right Third Finger ROM WFL Yes MCP Flexion Active (degrees) 80 MCP Extension Active (degrees) 0 Left Third MCP Flexion Active (degrees) 80 MCP Extension Active (degrees) 10 PT-OP-M Strength Start: 06/12/21 20:58 Freq: Status: Active Protocol: Document 06/14/21 09:48 LRN (Rec: 06/14/21 11:17 LRN [id number]) Wrist Strength Wrist Manual Muscle Testing Right Comments Generally 5/5 Left Flexion (C7) 4+ Good+ Extension (C6) 5 Normal Ulnar Deviation 5 Normal Radial Deviation 5 Normal Comments Pain with MMT between MCP jt of digits 3 & 4. Finger/Thumb Strength Finger Manual Muscle Testing Left Fourth Flexion (fingers C8) 4 Good Extension (thumb C8) 3+ Fair+ Adduction 4+ Good+ Abduction (fingers T1) 3+ Fair+ Comments Pain between MCP jts of digits 3 & 4 is limiting strength. Left Third Flexion (fingers C8) 4 Good Extension (thumb C8) 3+ Fair+ Adduction 4+ Good+ Abduction (fingers T1) 3+ Fair+ Comments Pain between MCP jts of digits 3 & 4 is limiting strength. Hand Advertising Assistant/Pinch Strength Hand Dominance Hand Dominance Right Hand Strength Right Comments Advertising Assistant (kg) three trials: 22.5, 22.5, 21.9 Avg subassemblies wirer (kg): 22.3 (norm is 22.5 kg) Left Comments Advertising Assistant (kg) three trials: 14, 12, 15 Avg subassemblies wirer (kg): 13.7 (norm is 18.6 kg) PT-OP-Q Treatments Start: 06/12/21 20:58 Freq: Status: Active Protocol: Document 07/15/21 12:51 LRN (Rec: 07/15/21 13:36 LRN [id number]) Therapeutic Exercises Supine Exercises Wrist AROM ex Supine Exercise Name Wrist AROM Side left Reps/Minutes 11' L UE n. glide w/shldr drop Supine Exercise Name L shoulder drops f/b drop and neck rotations Side left Reps/Minutes 6' Comments Towel roll supporting neck C. Elongation Supine Exercise Name Neck elongation with support Occiput>L3/L4 Reps/Minutes 7' Comments Extra time taken to determine best positioning (without support) Sitting Exercises Wringing of towel Sitting Exercise Name Towel wringing Side bilateral Reps/Minutes 3' Manual Therapy Treatment Manual Traction Cervical Details Head position flexed: 30 deg's , neutral, 60 deg's Body Position hooklying Reps/Duration 10 min Comments Patient reports pain relief in L ring finger MCP jt with ext . Pn relieved in R hand with jar opening motion. Pain reduction best at 30 deg' s flexed and neutral. Self-Care/Home Management Treatment Education Patient Education Home Exercise Program Activities Self-Care/Home Management Activities Issued & reviewed HEP: Neck stretches (SB, Rot, elongation) in supine, sit, or stand. PT-OP-R Modalities Start: 06/12/21 20:58 Freq: Status: Active Protocol: Document 06/24/21 08:16 LRN (Rec: 06/24/21 08:59 LRN [id number]) Paraffin Bath Treatment Left Hand Treatment Technique Dip-immersion Number Wax Layers (layers) 6 Duration (minutes) 8 Patient Tolerance Good PT-OP-T Assessment and Plan Start: 06/12/21 20:58 Freq: Status: Active Protocol: Document 07/15/21 12:51 LRN (Rec: 07/15/21 13:36 LRN [id number]) Physical Therapy Assessment Goals Three Impairment Pain with gripping (01/30) Short Term Goal (STG) Pt will be able to play her guitar for brief period without pain. (07/15/21: Less pain with fist making) STG Duration 07/11/21 Usp Goal (LTG) Pt will be able to subassemblies wirer a jar or can without pain. LTG Duration 08/13/21 Two Impairment Decreased function per UE QuickDASH score of 25 (20-39% impaired) Short Term Goal (STG) Improve L hand painfree AROM ( flex, ext, AB) with pt able to dress with less pain. (07/15/21: Hasn't noticed pain with dressing). STG Duration 07/05/21 Usp Goal (LTG) Improve L hand function per UE QuickDASH score of 18 or less . LTG Duration 08/13/21 One Impairment Pt lacks self care HEP Short Term Goal (STG) Pt will be educated in self care RICE treatment for edema management. STG Duration 06/21/21 (06/17/21: MET GOAL) Park Worker Goal (LTG) Pt will be independent in a self care HEP. (07/15/21: Added neck stretch and elongation ex to HEP) LTG Duration 08/13/21 (07/15/21: Progressed) Assessment Summary Assessment Cervical involvement. Resolution of L hand, middle finger MCP jt pain with finger ext and R hand pain with jar opening motion during manual C. Tx. No L hand pain with jar opening motion after manual C/S traction. Physical Therapy Plan Frequency and Duration Frequency of Treatment 2x/Week Plan of Care Start Date 06/14/21 Plan of Care End Date 08/13/21 Next Visit Focus/Plan Next Note Type Treatment Note Next Visit Plan Assess response to change in nighttime positioning and neck stab/self tx exercise. Cont manual C.tx. Progress RAFFI carvajal. Progress L hand, wrist, elbow strengthening if tolerated. If needed: STM: MFR of L hand flexor tendons at zone 3 (MCP to palmar crease), ?Paraffin Dip, f/b PROM flex/ext/AB Issue HEP handouts.
--- NOTE | 2021-07-26 16:36 | PT.OTN ---
Current Diagnoses Other enthesopathies, not elsewhere classified (07/26/21) Physical Therapy Treatment Note PT-OP-A Visit Information Start: 06/12/21 20:58 Freq: Status: Active Protocol: Document 07/26/21 12:47 LRN (Rec: 07/26/21 13:34 LRN [id number]) Out-Patient Physical Therapy Visit Information Visit Information Visit Type Treatment Note Visit Start Time 12:47 Visit Stop Time 13:33 Total Visit Minutes 46 Visit Number 6 Precautions Precautions MGUS (monoclonalgamopathy) - [facility] primary care physician heriberto use of Ultrasound. Recent back injury of abrasive type from garage door mechanism. Stage IIIB Chronic kidney disease. Chronic back pain. Bilateral knee replacement. R shoulder surgery ( acromioplasty & debridement), L shoulder surgery ( debridement). PT-OP-B Current Condition Start: 06/12/21 20:58 Freq: Status: Active Protocol: Document 06/14/21 09:48 LRN (Rec: 06/14/21 11:17 LRN [id number]) Current Condition History of Current Condition Onset Date 05/12/21 Current Complaints Pain with grasping and extension of fingers. History of Current Condition Putting together a hydralic lift and jammed the L hand ring and middle finger. Treated with ice and splinted it for a week (per internet instructions). Referring physician suggested Voltarin creme on the fingers (thinks it is helpful), so she has been doing that. She has swelling at the top of the hand and has pain with grasping things. Pain is 3/10 . Has been doing active ROM exercises. Pt is R handed. Prior Treatments and Tests Ice, splinted 1 week, now using Voltarin creme. Treatment Goals Patient/Caregiver Goals Pt goal is to be painfree and comfortable using for normal functions of gripping objects, guitar playing. Prior Functional Status Baseline Function- ADL's Independent Baseline Function- Mobility Independent Baseline Function- Recreation/Hobbies Last time played guitar was 7 yrs ago. Current Functional Impairments (Reported) Functional Limitations- ADL's Limited in ability to open jars (uses R hand), grasping can of food sometimes drops ( also did before injuring the hand), pain with dressing. Personal Factors Other Personal Factors That May Effect Chronic back pain, bilateral Therapy/Recovery knee replacement, R shoulder acromioplasty x 2, L shoulder surgery to debride cartilage. MGUS (monoclonalgamopathy) - states primary care physician heriberto use of Ultrasound. Recent back injury of abrasive type from garage door mechanism. Stage IIIB Chronic kidney disease. PT-OP-C Subjective Start: 06/12/21 20:58 Freq: Status: Active Protocol: Document 07/26/21 12:47 LRN (Rec: 07/26/21 13:34 LRN [id number]) OP-PT Subjective Patient Comments Patient Comments States she was able [place] drive to [place], gripping the steering wheel and has started picking up objects. Only time pain is when doing the wrist ext stretch. Has been doing other ex's. OP-PT Pain Assessment Pain Assessment Grid Paper Pain Assessment Grid Completed No Comments Pain Comments Pain in ring & middle finger only with stretch (into extension) or when jams the fingers. States when it does hurt it is worse on the middle finger. PT-OP-H Neuro Start: 06/12/21 20:58 Freq: Status: Active Protocol: Document 06/14/21 09:48 LRN (Rec: 06/14/21 11:17 LRN [id number]) Sensation Evaluation Gross Sensation Gross Sensation WNL PT-OP-J Posture/Palpation/Skin Start: 06/12/21 20:58 Freq: Status: Active Protocol: Document 06/14/21 09:48 LRN (Rec: 06/14/21 11:17 LRN [id number]) Palpation Assessment Location L hand volar side Palpation Location Between MCP of digits 3 & 4, Middle finger tendon at crease region Palpation Findings Edema,Tenderness Palpation Details Tightness of web space of L thumb and index finger L hand dorsal side Palpation Location Between MCP of digits 3 & 4 Palpation Findings Edema,Tenderness Palpation Details Pain generally around MCP jts of L middle and ring finger, but greatest between the MCP joints. PT-OP-K Range of Motion Start: 06/12/21 20:58 Freq: Status: Active Protocol: Document 07/15/21 12:51 LRN (Rec: 07/15/21 17:13 LRN [id number]) Wrist Goniometric Range of Motion Wrist Left Wrist ROM WFL Yes Flexion Active (degrees) 72 Extension Active (degrees) 80 Ulnar Deviation Active (degrees) 45 Radial Deviation Active (degrees) 30 Right Wrist ROM WFL Yes Flexion Active (degrees) 72 Extension Active (degrees) 72 Ulnar Deviation Active (degrees) 45 Radial Deviation Active (degrees) 22 Finger Goniometric Range of Motion Finger Right Third Finger ROM WFL Yes MCP Flexion Active (degrees) 80 MCP Extension Active (degrees) 0 Left Third MCP Flexion Active (degrees) 80 MCP Extension Active (degrees) 10 PT-OP-M Strength Start: 06/12/21 20:58 Freq: Status: Active Protocol: Document 06/14/21 09:48 LRN (Rec: 06/14/21 11:17 LRN [id number]) Wrist Strength Wrist Manual Muscle Testing Right Comments Generally 5/5 Left Flexion (C7) 4+ Good+ Extension (C6) 5 Normal Ulnar Deviation 5 Normal Radial Deviation 5 Normal Comments Pain with MMT between MCP jt of digits 3 & 4. Finger/Thumb Strength Finger Manual Muscle Testing Left Fourth Flexion (fingers C8) 4 Good Extension (thumb C8) 3+ Fair+ Adduction 4+ Good+ Abduction (fingers T1) 3+ Fair+ Comments Pain between MCP jts of digits 3 & 4 is limiting strength. Left Third Flexion (fingers C8) 4 Good Extension (thumb C8) 3+ Fair+ Adduction 4+ Good+ Abduction (fingers T1) 3+ Fair+ Comments Pain between MCP jts of digits 3 & 4 is limiting strength. Hand Insulation Machine Operator/Pinch Strength Hand Dominance Hand Dominance Right Hand Strength Right Comments Insulation Machine Operator (kg) three trials: 22.5, 22.5, 21.9 Avg biostatistics professor (kg): 22.3 (norm is 22.5 kg) Left Comments Insulation Machine Operator (kg) three trials: 14, 12, 15 Avg biostatistics professor (kg): 13.7 (norm is 18.6 kg) PT-OP-Q Treatments Start: 06/12/21 20:58 Freq: Status: Active Protocol: Document 07/26/21 12:47 LRN (Rec: 07/26/21 13:34 LRN [id number]) Therapeutic Exercises Supine Exercises L UE n. glide w/shldr drop Supine Exercise Name Arm at 70 deg's AB/MH on arm/ arm straight with finger mvmts Side left Reps/Minutes 8' Comments Towel roll supporting neck Sitting Exercises Neck stretch Sitting Exercise Name SB & rot Side bilateral Reps/Minutes 10 hold x 5 Wringing of towel Sitting Exercise Name Towel wringing Side bilateral Equipment Used towel Reps/Minutes 3' Comments Discomfort in L hand after a few wrings Radial Deviation Sitting Exercise Name Radial Deviation Side left Equipment Used Lev 2 TB, Yellow T Putty Reps/Minutes 15x 2 Ulnar Deviation Sitting Exercise Name Ulnar Deviation Side left Equipment Used Lev 2 TB, and without, Yellow T Putty Reps/Minutes 5x Comments Extra time to find best position of ex, but stopped due to ring finger pn. Pron/Sup Sitting Exercise Name Active Pron/Sup Side left Equipment Used Yellow T Putty Comments Supination causes ring finger pain, and discomfort in pronation Wrist Ext Sitting Exercise Name Wrist ext Side left Equipment Used Lev 2 TB Reps/Minutes 15x 2 Wrist flex Sitting Exercise Name Wrist flexion Side left Equipment Used Lev 2 TB Reps/Minutes 15 x 2 Finger ext Sitting Exercise Name Finger Ext strengthening Side left Equipment Used Yellow T Putty Reps/Minutes 3' Manual Therapy Treatment Manual Traction Cervical Details Head position flexed: 30 deg's , neutral, 60 deg's Body Position hooklying Reps/Duration 8 min Comments Patient reports pain relief in L ring finger MCP jt with ext . Self-Care/Home Management Treatment Education Patient Education Home Exercise Program Activities Self-Care/Home Management Activities Issued & reviewed HEP: Median and Ulnar nerve glides. PT-OP-R Modalities Start: 06/12/21 20:58 Freq: Status: Active Protocol: Document 07/26/21 12:47 LRN (Rec: 07/26/21 13:34 LRN [id number]) Hot Pack/Cold Pack Treatment Hot Pack Location L arm during UE nerve glide Patient Position Supine Treatment Duration (minutes) 8 PT-OP-T Assessment and Plan Start: 06/12/21 20:58 Freq: Status: Active Protocol: Document 07/26/21 12:47 LRN (Rec: 07/26/21 13:34 LRN [id number]) Physical Therapy Assessment Goals Three Impairment Pain with gripping (01/30) Short Term Goal (STG) Pt will be able to play her guitar for brief period without pain. (07/15/21: Less pain with fist making) STG Duration 07/11/21 Milk Runner Goal (LTG) Pt will be able to biostatistics professor a jar or can without pain. LTG Duration 08/13/21 Two Impairment Decreased function per UE QuickDASH score of 25 (20-39% impaired) Short Term Goal (STG) Improve L hand painfree AROM ( flex, ext, AB) with pt able to dress with less pain. (07/15/21: Hasn't noticed pain with dressing). STG Duration 07/05/21 Milk Runner Goal (LTG) Improve L hand function per UE QuickDASH score of 18 or less . LTG Duration 08/13/21 One Impairment Pt lacks self care HEP Short Term Goal (STG) Pt will be educated in self care RICE treatment for edema management. STG Duration 06/21/21 (06/17/21: MET GOAL) Usp Goal (LTG) Pt will be independent in a self care HEP. (07/15/21: Added neck stretch and elongation ex to HEP) LTG Duration 08/13/21 (07/15/21: Progressed) Progress Towards Goals Progress Comments Progressed HEP. Assessment Summary Assessment Pt had onset of L hand ring & middle finger with stretch of median and ulnar nerve. Pain was resolved with use of MH and gentle stretching of median and ulnar nerve in supine. Pt pain onset is lessening and pt is gaining awareness of proper neck & UE care. Physical Therapy Plan Frequency and Duration Frequency of Treatment 2x/Week Plan of Care Start Date 06/14/21 Plan of Care End Date 08/13/21 Next Visit Focus/Plan Next Note Type Treatment Note Next Visit Plan Review UE neuro glides. Assess response to change in nighttime positioning and neck stab/self tx exercise. Manual C.tx as needed.. Progress L hand, wrist, elbow strengthening as tolerated. If needed: MH f/b L UE ROM.
--- NOTE | 2021-08-05 16:04 | PT.OTN ---
Current Diagnoses Other enthesopathies, not elsewhere classified (08/05/21) Physical Therapy Treatment Note PT-OP-A Visit Information Start: 06/12/21 20:58 Freq: Status: Active Protocol: Document 08/05/21 12:48 LRN (Rec: 08/05/21 13:33 LRN [id number]) Out-Patient Physical Therapy Visit Information Visit Information Visit Type Treatment Note Visit Start Time 12:48 Visit Stop Time 13:30 Total Visit Minutes 42 Visit Number 7 Evaluation Information Evaluation Date 06/14/21 Precautions Precautions MGUS (monoclonalgamopathy) - [facility] primary care physician heriberto use of Ultrasound. Recent back injury of abrasive type from garage door mechanism. Stage IIIB Chronic kidney disease. Chronic back pain. Bilateral knee replacement. R shoulder surgery ( acromioplasty & debridement), L shoulder surgery ( debridement). PT-OP-B Current Condition Start: 06/12/21 20:58 Freq: Status: Active Protocol: Document 06/14/21 09:48 LRN (Rec: 06/14/21 11:17 LRN [id number]) Current Condition History of Current Condition Onset Date 05/12/21 Current Complaints Pain with grasping and extension of fingers. History of Current Condition Putting together a hydralic lift and jammed the L hand ring and middle finger. Treated with ice and splinted it for a week (per internet instructions). Referring physician suggested Voltarin creme on the fingers (thinks it is helpful), so she has been doing that. She has swelling at the top of the hand and has pain with grasping things. Pain is 3/10 . Has been doing active ROM exercises. Pt is R handed. Prior Treatments and Tests Ice, splinted 1 week, now using Voltarin creme. Treatment Goals Patient/Caregiver Goals Pt goal is to be painfree and comfortable using for normal functions of gripping objects, guitar playing. Prior Functional Status Baseline Function- ADL's Independent Baseline Function- Mobility Independent Baseline Function- Recreation/Hobbies Last time played guitar was 7 yrs ago. Current Functional Impairments (Reported) Functional Limitations- ADL's Limited in ability to open jars (uses R hand), grasping can of food sometimes drops ( also did before injuring the hand), pain with dressing. Personal Factors Other Personal Factors That May Effect Chronic back pain, bilateral Therapy/Recovery knee replacement, R shoulder acromioplasty x 2, L shoulder surgery to debride cartilage. MGUS (monoclonalgamopathy) - states primary care physician heriberto use of Ultrasound. Recent back injury of abrasive type from garage door mechanism. Stage IIIB Chronic kidney disease. PT-OP-C Subjective Start: 06/12/21 20:58 Freq: Status: Active Protocol: Document 08/05/21 12:48 LRN (Rec: 08/05/21 13:33 LRN [id number]) OP-PT Subjective Patient Comments Patient Comments Pain in L hand ring and middle finger. Using hand a lot with last couple batches of jam. PT-OP-H Neuro Start: 06/12/21 20:58 Freq: Status: Active Protocol: Document 06/14/21 09:48 LRN (Rec: 06/14/21 11:17 LRN [id number]) Sensation Evaluation Gross Sensation Gross Sensation WNL PT-OP-J Posture/Palpation/Skin Start: 06/12/21 20:58 Freq: Status: Active Protocol: Document 06/14/21 09:48 LRN (Rec: 06/14/21 11:17 LRN [id number]) Palpation Assessment Location L hand volar side Palpation Location Between MCP of digits 3 & 4, Middle finger tendon at crease region Palpation Findings Edema,Tenderness Palpation Details Tightness of web space of L thumb and index finger L hand dorsal side Palpation Location Between MCP of digits 3 & 4 Palpation Findings Edema,Tenderness Palpation Details Pain generally around MCP jts of L middle and ring finger, but greatest between the MCP joints. PT-OP-K Range of Motion Start: 06/12/21 20:58 Freq: Status: Active Protocol: Document 07/15/21 12:51 LRN (Rec: 07/15/21 17:13 LRN [id number]) Wrist Goniometric Range of Motion Wrist Left Wrist ROM WFL Yes Flexion Active (degrees) 72 Extension Active (degrees) 80 Ulnar Deviation Active (degrees) 45 Radial Deviation Active (degrees) 30 Right Wrist ROM WFL Yes Flexion Active (degrees) 72 Extension Active (degrees) 72 Ulnar Deviation Active (degrees) 45 Radial Deviation Active (degrees) 22 Finger Goniometric Range of Motion Finger Right Third Finger ROM WFL Yes MCP Flexion Active (degrees) 80 MCP Extension Active (degrees) 0 Left Third MCP Flexion Active (degrees) 80 MCP Extension Active (degrees) 10 PT-OP-M Strength Start: 06/12/21 20:58 Freq: Status: Active Protocol: Document 06/14/21 09:48 LRN (Rec: 06/14/21 11:17 LRN [id number]) Wrist Strength Wrist Manual Muscle Testing Right Comments Generally 5/5 Left Flexion (C7) 4+ Good+ Extension (C6) 5 Normal Ulnar Deviation 5 Normal Radial Deviation 5 Normal Comments Pain with MMT between MCP jt of digits 3 & 4. Finger/Thumb Strength Finger Manual Muscle Testing Left Fourth Flexion (fingers C8) 4 Good Extension (thumb C8) 3+ Fair+ Adduction 4+ Good+ Abduction (fingers T1) 3+ Fair+ Comments Pain between MCP jts of digits 3 & 4 is limiting strength. Left Third Flexion (fingers C8) 4 Good Extension (thumb C8) 3+ Fair+ Adduction 4+ Good+ Abduction (fingers T1) 3+ Fair+ Comments Pain between MCP jts of digits 3 & 4 is limiting strength. Hand Core Manager/Pinch Strength Hand Dominance Hand Dominance Right Hand Strength Right Comments Core Manager (kg) three trials: 22.5, 22.5, 21.9 Avg sifting operator (kg): 22.3 (norm is 22.5 kg) Left Comments Core Manager (kg) three trials: 14, 12, 15 Avg sifting operator (kg): 13.7 (norm is 18.6 kg) PT-OP-Q Treatments Start: 06/12/21 20:58 Freq: Status: Active Protocol: Document 08/05/21 12:48 LRN (Rec: 08/05/21 13:33 LRN [id number]) Therapeutic Exercises Supine Exercises C AROM Supine Exercise Name Rot stretch Side bilateral Reps/Minutes 10 hold x 10 each Comments L rot tigh down upper back, R rot tight down to buttock C Shira Ext Supine Exercise Name C. Isometrics Reps/Minutes 10 hold x 10 C. Elongation Supine Exercise Name Neck elongation with support Occiput>L3/L4 Reps/Minutes 7' Comments Phys & v cuing during ex to get deep neck flexor contraction Manual Therapy Treatment Manual Traction Cervical Details Head position flexed: 30 deg's , neutral, 60 deg's Body Position hooklying Reps/Duration 8 min Comments Patient reports pain relief in L ring & middle finger MCP jt with ext. Nerve Glides Median n glide Nerve Median nerve glide Body Position Standing Reps/Duration 5' Comments Extra time for training of max stretch position and for arm positioning. Ulnar n glide Nerve L Ulnar nerve glide Details Straight Arm 90 deg's AB w/ wrist ext/flex Body Position Supine Reps/Duration 5' Comments Extra time for training of max stretch position and for arm positioning. Self-Care/Home Management Treatment Education Other Education Discussed at length proper posturing with home activities (food prep for antony, antony, & cooking). Discussed her caregiving activities and proper head/ neck positioning to limit onset of pain. PT-OP-R Modalities Start: 06/12/21 20:58 Freq: Status: Active Protocol: Document 08/05/21 12:48 LRN (Rec: 08/05/21 13:33 LRN [id number]) Hot Pack/Cold Pack Treatment Hot Pack Location neck during UE nerve glide Patient Position Supine Treatment Duration (minutes) 34 Comments MH to neck during exercise & manual therapy, with extra padding PT-OP-T Assessment and Plan Start: 06/12/21 20:58 Freq: Status: Active Protocol: Document 08/05/21 12:48 LRN (Rec: 08/05/21 13:33 LRN [id number]) Physical Therapy Assessment Goals Three Impairment Pain with gripping (3/10) Short Term Goal (STG) Pt will be able to play her guitar for brief period without pain. (07/15/21: Less pain with fist making) STG Duration 07/11/21 Kiln Stoker Goal (LTG) Pt will be able to sifting operator a jar or can without pain. LTG Duration 08/13/21 Two Impairment Decreased function per UE QuickDASH score of 25 (20-39% impaired) Short Term Goal (STG) Improve L hand painfree AROM ( flex, ext, AB) with pt able to dress with less pain. (08/05/21: Hasn't noticed pain with dressing until the last couple of days). STG Duration 07/05/21 Care Home Goal (LTG) Improve L hand function per UE QuickDASH score of 18 or less . LTG Duration 08/13/21 One Impairment Pt lacks self care HEP Short Term Goal (STG) Pt will be educated in self care RICE treatment for edema management. STG Duration 06/21/21 (06/17/21: MET GOAL) Kiln Stoker Goal (LTG) Pt will be independent in a self care HEP. (07/15/21: Added neck stretch and elongation ex to HEP) LTG Duration 08/13/21 (07/15/21: Progressed) Assessment Summary Assessment Positive response to manual C tx with resolution of L middle and ring finger pain. 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 No onset of L hand pain with neck ex's. Pt did find some relief of her pain with home self traction (neck elongation ex). Physical Therapy Plan Frequency and Duration Frequency of Treatment 2x/Week Plan of Care Start Date 06/14/21 Plan of Care End Date 08/13/21 Next Visit Focus/Plan Next Note Type Treatment Note Next Visit Plan Manual C.tx as needed. Postural/Body mechanics education/training. Progress L hand, wrist, elbow strengthening as tolerated. If needed: MH f/b L UE ROM.
--- NOTE | 2021-08-12 17:08 | PT.OTN ---
Current Diagnoses Other enthesopathies, not elsewhere classified (08/12/21) Physical Therapy Treatment Note PT-OP-A Visit Information Start: 06/12/21 20:58 Freq: Status: Active Protocol: Document 08/12/21 12:49 LRN (Rec: 08/12/21 13:34 LRN [id number]) Out-Patient Physical Therapy Visit Information Visit Information Visit Type Progress Note Visit Start Time 12:49 Visit Stop Time 13:32 Total Visit Minutes 43 Visit Number 8 Evaluation Information Evaluation Date 06/14/21 Precautions Precautions MGUS (monoclonalgamopathy) - [facility] primary care physician heriberto use of Ultrasound. Recent back injury of abrasive type from garage door mechanism. Stage IIIB Chronic kidney disease. Chronic back pain. Bilateral knee replacement. R shoulder surgery ( acromioplasty & debridement), L shoulder surgery ( debridement). PT-OP-B Current Condition Start: 06/12/21 20:58 Freq: Status: Active Protocol: Document 06/14/21 09:48 LRN (Rec: 06/14/21 11:17 LRN [id number]) Current Condition History of Current Condition Onset Date 05/12/21 Current Complaints Pain with grasping and extension of fingers. History of Current Condition Putting together a hydralic lift and jammed the L hand ring and middle finger. Treated with ice and splinted it for a week (per internet instructions). Referring physician suggested Voltarin creme on the fingers (thinks it is helpful), so she has been doing that. She has swelling at the top of the hand and has pain with grasping things. Pain is 3/10 . Has been doing active ROM exercises. Pt is R handed. Prior Treatments and Tests Ice, splinted 1 week, now using Voltarin creme. Treatment Goals Patient/Caregiver Goals Pt goal is to be painfree and comfortable using for normal functions of gripping objects, guitar playing. Prior Functional Status Baseline Function- ADL's Independent Baseline Function- Mobility Independent Baseline Function- Recreation/Hobbies Last time played guitar was 7 yrs ago. Current Functional Impairments (Reported) Functional Limitations- ADL's Limited in ability to open jars (uses R hand), grasping can of food sometimes drops ( also did before injuring the hand), pain with dressing. Personal Factors Other Personal Factors That May Effect Chronic back pain, bilateral Therapy/Recovery knee replacement, R shoulder acromioplasty x 2, L shoulder surgery to debride cartilage. MGUS (monoclonalgamopathy) - states primary care physician heriberto use of Ultrasound. Recent back injury of abrasive type from garage door mechanism. Stage IIIB Chronic kidney disease. PT-OP-C Subjective Start: 06/12/21 20:58 Freq: Status: Active Protocol: Document 08/12/21 12:49 LRN (Rec: 08/12/21 13:34 LRN [id number]) OP-PT Subjective Patient Comments Patient Comments Waking with L hand pain 3x of 7 and was able to stretch the neck and take the pain away. Middle finger hurts more than the ring finger, but it does go away. Today no pain. Patient Questionnaires Quick Dash- Upper Extremity Quick Dash UE Score 2.27 Quick Dash UE Impairment 1 to 19% Impaired (Score 1-19) PT-OP-H Neuro Start: 06/12/21 20:58 Freq: Status: Active Protocol: Document 06/14/21 09:48 LRN (Rec: 06/14/21 11:17 LRN [id number]) Sensation Evaluation Gross Sensation Gross Sensation WNL PT-OP-J Posture/Palpation/Skin Start: 06/12/21 20:58 Freq: Status: Active Protocol: Document 06/14/21 09:48 LRN (Rec: 06/14/21 11:17 LRN [id number]) Palpation Assessment Location L hand volar side Palpation Location Between MCP of digits 3 & 4, Middle finger tendon at crease region Palpation Findings Edema,Tenderness Palpation Details Tightness of web space of L thumb and index finger L hand dorsal side Palpation Location Between MCP of digits 3 & 4 Palpation Findings Edema,Tenderness Palpation Details Pain generally around MCP jts of L middle and ring finger, but greatest between the MCP joints. PT-OP-K Range of Motion Start: 06/12/21 20:58 Freq: Status: Active Protocol: Document 08/12/21 12:49 LRN (Rec: 08/12/21 13:34 LRN [id number]) Wrist Goniometric Range of Motion Wrist Left Flexion Active (degrees) 68 Extension Active (degrees) 85 Ulnar Deviation Active (degrees) 44 Radial Deviation Active (degrees) 25 Right Flexion Active (degrees) 72 Extension Active (degrees) 72 Ulnar Deviation Active (degrees) 44 Radial Deviation Active (degrees) 25 Finger Goniometric Range of Motion Finger Right Fourth Finger ROM WFL No MCP Flexion Active (degrees) 84 MCP Extension Active (degrees) 30 Comments AB is 36 deg's Left Fourth MCP Flexion Active (degrees) 74 MCP Extension Active (degrees) 16 Comments AB is 36 deg's Right Third Finger ROM WFL Yes MCP Flexion Active (degrees) 86 MCP Extension Active (degrees) 28 Left Third MCP Flexion Active (degrees) 86 MCP Extension Active (degrees) 24 PT-OP-M Strength Start: 06/12/21 20:58 Freq: Status: Active Protocol: Document 06/14/21 09:48 LRN (Rec: 06/14/21 11:17 LRN [id number]) Wrist Strength Wrist Manual Muscle Testing Right Comments Generally 5/5 Left Flexion (C7) 4+ Good+ Extension (C6) 5 Normal Ulnar Deviation 5 Normal Radial Deviation 5 Normal Comments Pain with MMT between MCP jt of digits 3 & 4. Finger/Thumb Strength Finger Manual Muscle Testing Left Fourth Flexion (fingers C8) 4 Good Extension (thumb C8) 3+ Fair+ Adduction 4+ Good+ Abduction (fingers T1) 3+ Fair+ Comments Pain between MCP jts of digits 3 & 4 is limiting strength. Left Third Flexion (fingers C8) 4 Good Extension (thumb C8) 3+ Fair+ Adduction 4+ Good+ Abduction (fingers T1) 3+ Fair+ Comments Pain between MCP jts of digits 3 & 4 is limiting strength. Hand Wood Stainer/Pinch Strength Hand Dominance Hand Dominance Right Hand Strength Right Comments Wood Stainer (kg) three trials: 22.5, 22.5, 21.9 Avg broadcast producer (kg): 22.3 (norm is 22.5 kg) Left Comments Wood Stainer (kg) three trials: 14, 12, 15 Avg broadcast producer (kg): 13.7 (norm is 18.6 kg) PT-OP-Q Treatments Start: 06/12/21 20:58 Freq: Status: Active Protocol: Document 08/12/21 12:49 LRN (Rec: 08/12/21 13:34 LRN [id number]) Therapeutic Exercises Sitting Exercises Elbow curls Sitting Exercise Name Elbow curls Side bilateral Equipment Used 2# Reps/Minutes 10x Neck stretch Sitting Exercise Name Elongation Side bilateral Reps/Minutes 10 hold x 2, 2 sets Wringing of towel Sitting Exercise Name Wringing of can shape Side bilateral Radial Deviation Sitting Exercise Name Active RD, arms hanging by sides Side left Reps/Minutes 10x Ulnar Deviation Sitting Exercise Name Active UD, arms hanging by sides Side left Reps/Minutes 10x Active flex/ext Sitting Exercise Name Active ROM Side left Reps/Minutes 10x Pron/Sup Sitting Exercise Name Active ROM Side left Reps/Minutes 10x Wrist Ext Sitting Exercise Name Wrist ext stretch Side bilateral Reps/Minutes 2' Comments ROM taken Wrist flex Sitting Exercise Name Wrist flexion stretch Side bilateral Reps/Minutes 2' Comments ROM taken Manual Therapy Treatment Manual Traction Cervical Details Head position flexed: 30 deg's & neutral Body Position hooklying Reps/Duration 5 min Comments Patient reports pain relief in L ring . Middle finger pain continued. PT-OP-R Modalities Start: 06/12/21 20:58 Freq: Status: Active Protocol: Document 08/05/21 12:48 LRN (Rec: 08/05/21 13:33 LRN [id number]) Hot Pack/Cold Pack Treatment Hot Pack Location neck during UE nerve glide Patient Position Supine Treatment Duration (minutes) 34 Comments MH to neck during exercise & manual therapy, with extra padding PT-OP-T Assessment and Plan Start: 06/12/21 20:58 Freq: Status: Active Protocol: Document 08/12/21 12:49 LRN (Rec: 08/12/21 13:34 LRN [id number]) Physical Therapy Assessment Rehab Potential Rehabilitation Potential Excellent Evaluation Complexity Number of Personal Factors/Comorbidities 3 or More Number of Body Systems Impaired 4 or More Clinical Presentation at Evaluation Evolving Impairments Impairments Activity Tolerance,Pain,ROM, Soft Tissue Mobility,Strength Goals Three Impairment Pain with gripping (3/10) Short Term Goal (STG) Pt will be able to play her guitar for brief period without pain. (07/15/21: Less pain with fist making) STG Duration 08/19/21 (08/12/21: Pt hasn't attempted) Wheelchair Van Operator First Responder Goal (LTG) Pt will be able to broadcast producer a jar or can without pain. (08/12/21: Pt can broadcast producer without pain, but not able to untwist without pain). LTG Duration 09/12/21 (08/12/21: Improving ) Two Impairment Decreased function per UE QuickDASH score of 25 (20-39% impaired) Short Term Goal (STG) Improve L hand painfree AROM ( flex, ext, AB) with pt able to dress with less pain. (08/12/21: No pain with dressing, but end range L hand middle finger discomfort with wrist extension) STG Duration 09/12/21 (08/12/21: Partially met goal) Care Home Goal (LTG) Improve L hand function per UE QuickDASH score of 18 or less . (08/12/21: UE QuickDASH score 2.27) LTG Duration 08/13/21 (08/12/21: MET GOAL) One Impairment Pt lacks self care HEP Short Term Goal (STG) Pt will be educated in self care RICE treatment for edema management. STG Duration 06/21/21 (06/17/21: MET GOAL) Care Home Goal (LTG) Pt will be independent in a self care HEP. (07/15/21: Added neck stretch and elongation ex to HEP) LTG Duration 09/12/21 (07/15/21: Progressed) Progress Towards Goals Progress Comments Imiproved function per UE QuickDASH score 2.27 (was initially 25 = 20-39% impaired) Assessment Summary Assessment Strengthening of the elbow/ wrist/hands caused onset of L middle & ring finger pain. Neck stretches initially helped alleviate the pain. After manual cervical traction , L hand middle finger pain remained. Physical Therapy Plan Frequency and Duration Frequency of Treatment 2x/Week Plan of Care Start Date 06/14/21 Plan of Care End Date 09/12/21 Therapeutic Interventions Therapeutic Interventions Home Exercise Program,Manual Therapy,Neuromuscular Re- education,Patient/Caregiver Education,Self-Care/Home Management,Soft Tissue Mobilization,Therapeutic Activities,Therapeutic Exercises Modalities Cold Pack/Ice Massage,Hot Packs Next Visit Focus/Plan Next Note Type Treatment Note Next Visit Plan Check if pt playing guitar. Educationi in Postural/Body mechanics. Add HEP to progress L hand, wrist, elbow strengthening as tolerated. Manual C.tx (w/DALE) as needed. If needed: DALE f/b L UE ROM.
--- NOTE | 2021-08-12 17:09 | PT.OPPOC ---
Physical, Occupational & Speech Therapy At [facility] Current Diagnoses Other enthesopathies, not elsewhere classified (08/12/21) Visit Care Team Role Provider Type Rasheeda Jacob MD Primary Care Provider Physician Specialty: Internal Medicine Address: [address] [place] [address] Email: [email or web address] Jag Robledo MD Attending Provider Non-Staff Referring Provider Specialty: Internal Medicine Address: [address] [place] [address], [id number] Email: Plan Of Care PT-OP-T Assessment and Plan Start: 06/12/21 20:58 Freq: Status: Active Protocol: Document 08/12/21 12:49 LRN (Rec: 08/12/21 13:34 LRN [id number]) Physical Therapy Assessment Rehab Potential Rehabilitation Potential Excellent Evaluation Complexity Number of Personal Factors/Comorbidities 3 or More Number of Body Systems Impaired 4 or More Clinical Presentation at Evaluation Evolving Impairments Impairments Activity Tolerance,Pain,ROM, Soft Tissue Mobility,Strength Goals Three Impairment Pain with gripping (/10) Short Term Goal (STG) Pt will be able to play her guitar for brief period without pain. (07/15/21: Less pain with fist making) STG Duration 08/19/21 (08/12/21: Pt hasn't attempted) [facility] Goal (LTG) Pt will be able to metal technician a jar or can without pain. (08/12/21: Pt can metal technician without pain, but not able to untwist without pain). LTG Duration 09/12/21 (08/12/21: Improving ) Two Impairment Decreased function per UE QuickDASH score of 25 (20-39% impaired) Short Term Goal (STG) Improve L hand painfree AROM ( flex, ext, AB) with pt able to dress with less pain. (08/12/21: No pain with dressing, but end range L hand middle finger discomfort with wrist extension) STG Duration 09/12/21 (08/12/21: Partially met goal) [facility] Goal (LTG) Improve L hand function per UE QuickDASH score of 18 or less . (08/12/21: UE QuickDASH score 2.27) LTG Duration 08/13/21 (08/12/21: MET GOAL) One Impairment Pt lacks self care HEP Short Term Goal (STG) Pt will be educated in self care RICE treatment for edema management. STG Duration 06/21/21 (06/17/21: MET GOAL) [facility] Goal (LTG) Pt will be independent in a self care HEP. (07/15/21: Added neck stretch and elongation ex to HEP) LTG Duration 09/12/21 (07/15/21: Progressed) Progress Towards Goals Progress Comments Imiproved function per UE QuickDASH score 2.27 (was initially 25 = 20-39% impaired) Assessment Summary Assessment Strengthening of the elbow/ wrist/hands caused onset of L middle & ring finger pain. Neck stretches initially helped alleviate the pain. After manual cervical traction , L hand middle finger pain remained. Physical Therapy Plan Frequency and Duration Frequency of Treatment 2x/Week Plan of Care Start Date 06/14/21 Plan of Care End Date 09/12/21 Therapeutic Interventions Therapeutic Interventions Home Exercise Program,Manual Therapy,Neuromuscular Re- education,Patient/Caregiver Education,Self-Care/Home Management,Soft Tissue Mobilization,Therapeutic Activities,Therapeutic Exercises Modalities Cold Pack/Ice Massage,Hot Packs Next Visit Focus/Plan Next Note Type Treatment Note Next Visit Plan Check if pt playing guitar. Educationi in Postural/Body mechanics. Add HEP to progress L hand, wrist, elbow strengthening as tolerated. Manual C.tx (w/MH) as needed. If needed: MH f/b L UE ROM. Plan of Care Dates Plan of Care Start Date 06/14/21 Plan of Care End Date 09/12/21 Electronically Signed by: Elza Reyes, PT 08/12/21 [id number] Please Sign and Return: I have reviewed this Plan of Care and certify that the skilled therapy services above are required to meet the patient?s needs. Physician Signature Date Printed Name and Credentials Clinical Instructor Signature Printed Name and Credentials
--- NOTE | 2021-08-19 16:07 | PT.OTN ---
Current Diagnoses Other enthesopathies, not elsewhere classified (08/19/21) Physical Therapy Treatment Note PT-OP-A Visit Information Start: 06/12/21 20:58 Freq: Status: Active Protocol: Document 08/19/21 12:48 LRN (Rec: 08/19/21 13:35 LRN [id number]) Out-Patient Physical Therapy Visit Information Visit Information Visit Type Treatment Note Visit Start Time 12:48 Visit Stop Time 13:34 Total Visit Minutes 46 Visit Number 9 Evaluation Information Evaluation Date 06/14/21 Precautions Precautions MGUS (monoclonalgamopathy) - [facility] primary care physician heriberto use of Ultrasound. Recent back injury of abrasive type from garage door mechanism. Stage IIIB Chronic kidney disease. Chronic back pain. Bilateral knee replacement. R shoulder surgery ( acromioplasty & debridement), L shoulder surgery ( debridement). PT-OP-B Current Condition Start: 06/12/21 20:58 Freq: Status: Active Protocol: Document 06/14/21 09:48 LRN (Rec: 06/14/21 11:17 LRN [id number]) Current Condition History of Current Condition Onset Date 05/12/21 Current Complaints Pain with grasping and extension of fingers. History of Current Condition Putting together a hydralic lift and jammed the L hand ring and middle finger. Treated with ice and splinted it for a week (per internet instructions). Referring physician suggested Voltarin creme on the fingers (thinks it is helpful), so she has been doing that. She has swelling at the top of the hand and has pain with grasping things. Pain is 3/10 . Has been doing active ROM exercises. Pt is R handed. Prior Treatments and Tests Ice, splinted 1 week, now using Voltarin creme. Treatment Goals Patient/Caregiver Goals Pt goal is to be painfree and comfortable using for normal functions of gripping objects, guitar playing. Prior Functional Status Baseline Function- ADL's Independent Baseline Function- Mobility Independent Baseline Function- Recreation/Hobbies Last time played guitar was 7 yrs ago. Current Functional Impairments (Reported) Functional Limitations- ADL's Limited in ability to open jars (uses R hand), grasping can of food sometimes drops ( also did before injuring the hand), pain with dressing. Personal Factors Other Personal Factors That May Effect Chronic back pain, bilateral Therapy/Recovery knee replacement, R shoulder acromioplasty x 2, L shoulder surgery to debride cartilage. MGUS (monoclonalgamopathy) - states primary care physician heriberto use of Ultrasound. Recent back injury of abrasive type from garage door mechanism. Stage IIIB Chronic kidney disease. PT-OP-C Subjective Start: 06/12/21 20:58 Freq: Status: Active Protocol: Document 08/19/21 12:48 LRN (Rec: 08/19/21 13:35 LRN [id number]) OP-PT Subjective Patient Comments Patient Comments When got home, hand between 3- 4th fingers was really swollen . Iced and put Volteran on it . The swelling lasted a few days. Got a flu shot, so then shoulder was sore. Wed got Covid booster and had a fever for a few days. This week will plan on doing weight lifting and pull out the guitar because it calmed down some. Having more pain than before last treatment. Feels like something is catching in the top of the L hand. Doing neck ex's but it doesn't completely remove the pain. OP-PT Pain Assessment Pain Assessment Grid Paper Pain Assessment Grid Completed No Location L hand ring finger Pain Location Details Moving finger, pain between 3rd & 4th fingers Intensity 3 Scale Used Numeric (0 - 10) L hand middle finger Pain Location Details Moving finger, pain between 3rd & 4th fingers Intensity 3 Scale Used Numeric (0 - 10) PT-OP-H Neuro Start: 06/12/21 20:58 Freq: Status: Active Protocol: Document 06/14/21 09:48 LRN (Rec: 06/14/21 11:17 LRN [id number]) Sensation Evaluation Gross Sensation Gross Sensation WNL PT-OP-J Posture/Palpation/Skin Start: 06/12/21 20:58 Freq: Status: Active Protocol: Document 06/14/21 09:48 LRN (Rec: 06/14/21 11:17 LRN [id number]) Palpation Assessment Location L hand volar side Palpation Location Between MCP of digits 3 & 4, Middle finger tendon at crease region Palpation Findings Edema,Tenderness Palpation Details Tightness of web space of L thumb and index finger L hand dorsal side Palpation Location Between MCP of digits 3 & 4 Palpation Findings Edema,Tenderness Palpation Details Pain generally around MCP jts of L middle and ring finger, but greatest between the MCP joints. PT-OP-K Range of Motion Start: 06/12/21 20:58 Freq: Status: Active Protocol: Document 08/12/21 12:49 LRN (Rec: 08/12/21 13:34 LRN [id number]) Wrist Goniometric Range of Motion Wrist Left Flexion Active (degrees) 68 Extension Active (degrees) 85 Ulnar Deviation Active (degrees) 44 Radial Deviation Active (degrees) 25 Right Flexion Active (degrees) 72 Extension Active (degrees) 72 Ulnar Deviation Active (degrees) 44 Radial Deviation Active (degrees) 25 Finger Goniometric Range of Motion Finger Right Fourth Finger ROM WFL No MCP Flexion Active (degrees) 84 MCP Extension Active (degrees) 30 Comments AB is 36 deg's Left Fourth MCP Flexion Active (degrees) 74 MCP Extension Active (degrees) 16 Comments AB is 36 deg's Right Third Finger ROM WFL Yes MCP Flexion Active (degrees) 86 MCP Extension Active (degrees) 28 Left Third MCP Flexion Active (degrees) 86 MCP Extension Active (degrees) 24 PT-OP-M Strength Start: 06/12/21 20:58 Freq: Status: Active Protocol: Document 06/14/21 09:48 LRN (Rec: 06/14/21 11:17 LRN [id number]) Wrist Strength Wrist Manual Muscle Testing Right Comments Generally 5/5 Left Flexion (C7) 4+ Good+ Extension (C6) 5 Normal Ulnar Deviation 5 Normal Radial Deviation 5 Normal Comments Pain with MMT between MCP jt of digits 3 & 4. Finger/Thumb Strength Finger Manual Muscle Testing Left Fourth Flexion (fingers C8) 4 Good Extension (thumb C8) 3+ Fair+ Adduction 4+ Good+ Abduction (fingers T1) 3+ Fair+ Comments Pain between MCP jts of digits 3 & 4 is limiting strength. Left Third Flexion (fingers C8) 4 Good Extension (thumb C8) 3+ Fair+ Adduction 4+ Good+ Abduction (fingers T1) 3+ Fair+ Comments Pain between MCP jts of digits 3 & 4 is limiting strength. Hand Crop Supervisor/Pinch Strength Hand Dominance Hand Dominance Right Hand Strength Right Comments Crop Supervisor (kg) three trials: 22.5, 22.5, 21.9 Avg social economist (kg): 22.3 (norm is 22.5 kg) Left Comments Crop Supervisor (kg) three trials: 14, 12, 15 Avg social economist (kg): 13.7 (norm is 18.6 kg) PT-OP-Q Treatments Start: 06/12/21 20:58 Freq: Status: Active Protocol: Document 08/19/21 12:48 LRN (Rec: 08/19/21 13:35 LRN [id number]) Therapeutic Exercises Sitting Exercises L hand tendon glides Sitting Exercise Name Flex/Ext Side left Reps/Minutes 8' Various times throughout therapy. L ring/middle finger AB Sitting Exercise Name Active fingers 2-5 AB Side left Reps/Minutes 10x 3 sets Comments Extra time to determine max tolerance to AROM. Manual Therapy Treatment Soft Tissue Mobilization L Dorsal side Body Location Digits 3 & 4 MCP jt Mobilization Type Strumming,Sustained Pressure Comments Performed in sitting & while on mechanical traction in supine. Joint Mobilizations Mob w/Movement Joint AP of 4th distal Metacarpel with finger extension to eliminate popping Direction AP Reps/Duration 10x 2 - x 2 Comments Popping noted at ring finger extensor tendon. Digits 3 & 4 MCP jt Joint L hand Digits 3 & 4 MCP jt Direction PA, AP Grade I Body Position Sitting Reps/Duration 21 Manual Traction Cervical Details L hand fingers flex/ext with/ without manual cervical traction check Body Position Supine Reps/Duration 2' Comments Pt had relief of pain in L hand between digitis 3 & 4 while manual traction was performed. PT-OP-R Modalities Start: 06/12/21 20:58 Freq: Status: Active Protocol: Document 08/05/21 12:48 LRN (Rec: 08/05/21 13:33 LRN [id number]) Hot Pack/Cold Pack Treatment Hot Pack Location neck during UE nerve glide Patient Position Supine Treatment Duration (minutes) 34 Comments MH to neck during exercise & manual therapy, with extra padding PT-OP-T Assessment and Plan Start: 06/12/21 20:58 Freq: Status: Active Protocol: Document 08/19/21 12:48 LRN (Rec: 08/19/21 13:35 LRN [id number]) Physical Therapy Assessment Goals Three Impairment Pain with gripping (3/10) Short Term Goal (STG) Pt will be able to play her guitar for brief period without pain. (07/15/21: Less pain with fist making) STG Duration 08/19/21 (08/19/21: Pt hasn't attempted) Php Developer Goal (LTG) Pt will be able to social economist a jar or can without pain. (08/12/21: Pt can social economist without pain, but not able to untwist without pain). LTG Duration 09/12/21 (08/12/21: Improving ) Two Impairment Decreased function per UE QuickDASH score of 25 (20-39% impaired) Short Term Goal (STG) Improve L hand painfree AROM ( flex, ext, AB) with pt able to dress with less pain. (08/12/21: No pain with dressing, but end range L hand middle finger discomfort with wrist extension) STG Duration 09/12/21 (08/12/21: Partially met goal) Alf Goal (LTG) Improve L hand function per UE QuickDASH score of 18 or less . (08/12/21: UE QuickDASH score 2.27) LTG Duration 08/13/21 (08/12/21: MET GOAL) One Impairment Pt lacks self care HEP Short Term Goal (STG) Pt will be educated in self care RICE treatment for edema management. STG Duration 06/21/21 (06/17/21: MET GOAL) Alf Goal (LTG) Pt will be independent in a self care HEP. (07/15/21: Added neck stretch and elongation ex to HEP) LTG Duration 09/12/21 (07/15/21: Progressed) Assessment Summary Assessment Pt concerned popping in hand is reason for continued hand pain, but she had relief of pain in L hand between digitis 3 & 4 while manual traction was performed (after mechanical cervical traction). Pt had some relief of hand pain with mechanical traction but not full relief. Pt still presenting with cervical invovlement of hand pain, but there is popping at L hand 4th digit extensor tendon without supportive positioning of distal end of 4th metacarpel bone during finger extension. Pt is having L hand pain when waking in the morning; therefore sleeping position may be a big part of her pain onset. The pt is planning on doing antony, and may cause hand irritation with use of hand and with neck positioning . Physical Therapy Plan Frequency and Duration Frequency of Treatment 2x/Week Plan of Care Start Date 06/14/21 Plan of Care End Date 09/12/21 Next Visit Focus/Plan Next Note Type Progress Note Next Visit Plan UE neural stretch in positions of use (opening jars). Check if pt playing guitar. Education in Postural/Body mechanics. Add HEP to progress L hand, wrist, elbow strengthening as tolerated. Manual C.tx (w/MH) if needed of L hand pain. MWM for L hand tendon gliding & hand strenghtening
--- NOTE | 2021-08-19 16:14 | PT.OTN ---
Current Diagnoses Other enthesopathies, not elsewhere classified (08/19/21) Physical Therapy Treatment Note PT-OP-A Visit Information Start: 06/12/21 20:58 Freq: Status: Active Protocol: Document 08/19/21 12:48 LRN (Rec: 08/19/21 13:35 LRN [id number]) Out-Patient Physical Therapy Visit Information Visit Information Visit Type Treatment Note Visit Start Time 12:48 Visit Stop Time 13:34 Total Visit Minutes 46 Visit Number 9 Evaluation Information Evaluation Date 06/14/21 Precautions Precautions MGUS (monoclonalgamopathy) - [facility] primary care physician heriberto use of Ultrasound. Recent back injury of abrasive type from garage door mechanism. Stage IIIB Chronic kidney disease. Chronic back pain. Bilateral knee replacement. R shoulder surgery ( acromioplasty & debridement), L shoulder surgery ( debridement). PT-OP-B Current Condition Start: 06/12/21 20:58 Freq: Status: Active Protocol: Document 06/14/21 09:48 LRN (Rec: 06/14/21 11:17 LRN [id number]) Current Condition History of Current Condition Onset Date 05/12/21 Current Complaints Pain with grasping and extension of fingers. History of Current Condition Putting together a hydralic lift and jammed the L hand ring and middle finger. Treated with ice and splinted it for a week (per internet instructions). Referring physician suggested Voltarin creme on the fingers (thinks it is helpful), so she has been doing that. She has swelling at the top of the hand and has pain with grasping things. Pain is 3/10 . Has been doing active ROM exercises. Pt is R handed. Prior Treatments and Tests Ice, splinted 1 week, now using Voltarin creme. Treatment Goals Patient/Caregiver Goals Pt goal is to be painfree and comfortable using for normal functions of gripping objects, guitar playing. Prior Functional Status Baseline Function- ADL's Independent Baseline Function- Mobility Independent Baseline Function- Recreation/Hobbies Last time played guitar was 7 yrs ago. Current Functional Impairments (Reported) Functional Limitations- ADL's Limited in ability to open jars (uses R hand), grasping can of food sometimes drops ( also did before injuring the hand), pain with dressing. Personal Factors Other Personal Factors That May Effect Chronic back pain, bilateral Therapy/Recovery knee replacement, R shoulder acromioplasty x 2, L shoulder surgery to debride cartilage. MGUS (monoclonalgamopathy) - states primary care physician heriberto use of Ultrasound. Recent back injury of abrasive type from garage door mechanism. Stage IIIB Chronic kidney disease. PT-OP-C Subjective Start: 06/12/21 20:58 Freq: Status: Active Protocol: Document 08/19/21 12:48 LRN (Rec: 08/19/21 13:35 LRN [id number]) OP-PT Subjective Patient Comments Patient Comments When got home, hand between 3- 4th fingers was really swollen . Iced and put Volteran on it . The swelling lasted a few days. Got a flu shot, so then shoulder was sore. Wed got Covid booster and had a fever for a few days. This week will plan on doing weight lifting and pull out the guitar because it calmed down some. Having more pain than before last treatment. Feels like something is catching in the top of the L hand. Doing neck ex's but it doesn't completely remove the pain. OP-PT Pain Assessment Pain Assessment Grid Paper Pain Assessment Grid Completed No Location L hand ring finger Pain Location Details Moving finger, pain between 3rd & 4th fingers Intensity 3 Scale Used Numeric (0 - 10) L hand middle finger Pain Location Details Moving finger, pain between 3rd & 4th fingers Intensity 3 Scale Used Numeric (0 - 10) PT-OP-H Neuro Start: 06/12/21 20:58 Freq: Status: Active Protocol: Document 06/14/21 09:48 LRN (Rec: 06/14/21 11:17 LRN [id number]) Sensation Evaluation Gross Sensation Gross Sensation WNL PT-OP-J Posture/Palpation/Skin Start: 06/12/21 20:58 Freq: Status: Active Protocol: Document 06/14/21 09:48 LRN (Rec: 06/14/21 11:17 LRN [id number]) Palpation Assessment Location L hand volar side Palpation Location Between MCP of digits 3 & 4, Middle finger tendon at crease region Palpation Findings Edema,Tenderness Palpation Details Tightness of web space of L thumb and index finger L hand dorsal side Palpation Location Between MCP of digits 3 & 4 Palpation Findings Edema,Tenderness Palpation Details Pain generally around MCP jts of L middle and ring finger, but greatest between the MCP joints. PT-OP-K Range of Motion Start: 06/12/21 20:58 Freq: Status: Active Protocol: Document 08/12/21 12:49 LRN (Rec: 08/12/21 13:34 LRN [id number]) Wrist Goniometric Range of Motion Wrist Left Flexion Active (degrees) 68 Extension Active (degrees) 85 Ulnar Deviation Active (degrees) 44 Radial Deviation Active (degrees) 25 Right Flexion Active (degrees) 72 Extension Active (degrees) 72 Ulnar Deviation Active (degrees) 44 Radial Deviation Active (degrees) 25 Finger Goniometric Range of Motion Finger Right Fourth Finger ROM WFL No MCP Flexion Active (degrees) 84 MCP Extension Active (degrees) 30 Comments AB is 36 deg's Left Fourth MCP Flexion Active (degrees) 74 MCP Extension Active (degrees) 16 Comments AB is 36 deg's Right Third Finger ROM WFL Yes MCP Flexion Active (degrees) 86 MCP Extension Active (degrees) 28 Left Third MCP Flexion Active (degrees) 86 MCP Extension Active (degrees) 24 PT-OP-M Strength Start: 06/12/21 20:58 Freq: Status: Active Protocol: Document 06/14/21 09:48 LRN (Rec: 06/14/21 11:17 LRN [id number]) Wrist Strength Wrist Manual Muscle Testing Right Comments Generally 5/5 Left Flexion (C7) 4+ Good+ Extension (C6) 5 Normal Ulnar Deviation 5 Normal Radial Deviation 5 Normal Comments Pain with MMT between MCP jt of digits 3 & 4. Finger/Thumb Strength Finger Manual Muscle Testing Left Fourth Flexion (fingers C8) 4 Good Extension (thumb C8) 3+ Fair+ Adduction 4+ Good+ Abduction (fingers T1) 3+ Fair+ Comments Pain between MCP jts of digits 3 & 4 is limiting strength. Left Third Flexion (fingers C8) 4 Good Extension (thumb C8) 3+ Fair+ Adduction 4+ Good+ Abduction (fingers T1) 3+ Fair+ Comments Pain between MCP jts of digits 3 & 4 is limiting strength. Hand Fabric Worker/Pinch Strength Hand Dominance Hand Dominance Right Hand Strength Right Comments Fabric Worker (kg) three trials: 22.5, 22.5, 21.9 Avg pond sawyer (kg): 22.3 (norm is 22.5 kg) Left Comments Fabric Worker (kg) three trials: 14, 12, 15 Avg pond sawyer (kg): 13.7 (norm is 18.6 kg) PT-OP-Q Treatments Start: 06/12/21 20:58 Freq: Status: Active Protocol: Document 08/19/21 12:48 LRN (Rec: 08/19/21 13:35 LRN [id number]) Therapeutic Exercises Sitting Exercises L hand tendon glides Sitting Exercise Name Flex/Ext Side left Reps/Minutes 8' Various times throughout therapy. L ring/middle finger AB Sitting Exercise Name Active fingers 2-5 AB Side left Reps/Minutes 10x 3 sets Comments Extra time to determine max tolerance to AROM. Manual Therapy Treatment Soft Tissue Mobilization L Dorsal side Body Location Digits 3 & 4 MCP jt Mobilization Type Strumming,Sustained Pressure Comments Performed in sitting & while on mechanical traction in supine. Joint Mobilizations Mob w/Movement Joint AP of 4th distal Metacarpel with finger extension to eliminate popping Direction AP Reps/Duration 10x 2 - x 2 Comments Popping noted at ring finger extensor tendon. Digits 3 & 4 MCP jt Joint L hand Digits 3 & 4 MCP jt Direction PA, AP Grade I Body Position Sitting Reps/Duration 21 Manual Traction Cervical Details L hand fingers flex/ext with/ without manual cervical traction check Body Position Supine Reps/Duration 2' Comments Pt had relief of pain in L hand between digitis 3 & 4 while manual traction was performed. PT-OP-R Modalities Start: 06/12/21 20:58 Freq: Status: Active Protocol: Document 08/19/21 12:48 LRN (Rec: 08/19/21 16:13 LRN [id number]) Spinal Traction Traction Treatment Cervical Method Mechanical Patient Position Supine Duration of Treatment (Minutes) 8 Heating Pad Applied Yes Traction Treatment Comment Bean: force changed from 8# to start with slow decline to 4# at end of treatment time PT-OP-T Assessment and Plan Start: 06/12/21 20:58 Freq: Status: Active Protocol: Document 08/19/21 12:48 LRN (Rec: 08/19/21 13:35 LRN [id number]) Physical Therapy Assessment Goals Three Impairment Pain with gripping (3/10) Short Term Goal (STG) Pt will be able to play her guitar for brief period without pain. (07/15/21: Less pain with fist making) STG Duration 08/19/21 (08/19/21: Pt hasn't attempted) Mcfp Goal (LTG) Pt will be able to pond sawyer a jar or can without pain. (08/12/21: Pt can pond sawyer without pain, but not able to untwist without pain). LTG Duration 09/12/21 (08/12/21: Improving ) Two Impairment Decreased function per UE QuickDASH score of 25 (20-39% impaired) Short Term Goal (STG) Improve L hand painfree AROM ( flex, ext, AB) with pt able to dress with less pain. (08/12/21: No pain with dressing, but end range L hand middle finger discomfort with wrist extension) STG Duration 09/12/21 (08/12/21: Partially met goal) Mcfp Goal (LTG) Improve L hand function per UE QuickDASH score of 18 or less . (08/12/21: UE QuickDASH score 2.27) LTG Duration 08/13/21 (08/12/21: MET GOAL) One Impairment Pt lacks self care HEP Short Term Goal (STG) Pt will be educated in self care RICE treatment for edema management. STG Duration 06/21/21 (06/17/21: MET GOAL) Wireless Architect Goal (LTG) Pt will be independent in a self care HEP. (07/15/21: Added neck stretch and elongation ex to HEP) LTG Duration 09/12/21 (07/15/21: Progressed) Assessment Summary Assessment Pt concerned popping in hand is reason for continued hand pain, but she had relief of pain in L hand between digitis 3 & 4 while manual traction was performed (after mechanical cervical traction). Pt had some relief of hand pain with mechanical traction but not full relief. Pt still presenting with cervical invovlement of hand pain, but there is popping at L hand 4th digit extensor tendon without supportive positioning of distal end of 4th metacarpel bone during finger extension. Pt is having L hand pain when waking in the morning; therefore sleeping position may be a big part of her pain onset. The pt is planning on doing antony, and may cause hand irritation with use of hand and with neck positioning . Physical Therapy Plan Frequency and Duration Frequency of Treatment 2x/Week Plan of Care Start Date 06/14/21 Plan of Care End Date 09/12/21 Next Visit Focus/Plan Next Note Type Progress Note Next Visit Plan UE neural stretch in positions of use (opening jars). Check if pt playing guitar. Education in Postural/Body mechanics. Add HEP to progress L hand, wrist, elbow strengthening as tolerated. Manual C.tx (w/MH) if needed of L hand pain. MWM for L hand tendon gliding & hand strenghtening
--- NOTE | 2021-09-03 17:55 | PT.OTN ---
Current Diagnoses Other enthesopathies, not elsewhere classified (09/03/21) Physical Therapy Treatment Note PT-OP-A Visit Information Start: 06/12/21 20:58 Freq: Status: Active Protocol: Document 09/03/21 10:30 LRN (Rec: 09/03/21 12:24 LRN [id number]) Out-Patient Physical Therapy Visit Information Visit Information Visit Type Progress Note Visit Start Time 11:24 Visit Stop Time 12:02 Total Visit Minutes 38 Visit Number 10 Evaluation Information Evaluation Date 06/14/21 Precautions Precautions MGUS (monoclonalgamopathy) - [facility] primary care physician heriberto use of Ultrasound. Recent back injury of abrasive type from garage door mechanism. Stage IIIB Chronic kidney disease. Chronic back pain. Bilateral knee replacement. R shoulder surgery ( acromioplasty & debridement), L shoulder surgery ( debridement). PT-OP-B Current Condition Start: 06/12/21 20:58 Freq: Status: Active Protocol: Document 06/14/21 09:48 LRN (Rec: 06/14/21 11:17 LRN [id number]) Current Condition History of Current Condition Onset Date 05/12/21 Current Complaints Pain with grasping and extension of fingers. History of Current Condition Putting together a hydralic lift and jammed the L hand ring and middle finger. Treated with ice and splinted it for a week (per internet instructions). Referring physician suggested Voltarin creme on the fingers (thinks it is helpful), so she has been doing that. She has swelling at the top of the hand and has pain with grasping things. Pain is 3/10 . Has been doing active ROM exercises. Pt is R handed. Prior Treatments and Tests Ice, splinted 1 week, now using Voltarin creme. Treatment Goals Patient/Caregiver Goals Pt goal is to be painfree and comfortable using for normal functions of gripping objects, guitar playing. Prior Functional Status Baseline Function- ADL's Independent Baseline Function- Mobility Independent Baseline Function- Recreation/Hobbies Last time played guitar was 7 yrs ago. Current Functional Impairments (Reported) Functional Limitations- ADL's Limited in ability to open jars (uses R hand), grasping can of food sometimes drops ( also did before injuring the hand), pain with dressing. Personal Factors Other Personal Factors That May Effect Chronic back pain, bilateral Therapy/Recovery knee replacement, R shoulder acromioplasty x 2, L shoulder surgery to debride cartilage. MGUS (monoclonalgamopathy) - states primary care physician heriberto use of Ultrasound. Recent back injury of abrasive type from garage door mechanism. Stage IIIB Chronic kidney disease. PT-OP-C Subjective Start: 06/12/21 20:58 Freq: Status: Active Protocol: Document 09/03/21 10:30 LRN (Rec: 09/03/21 12:24 LRN [id number]) OP-PT Subjective Patient Comments Patient Comments Had to use the hands a lot since last treatment, but has been doing stretching and ex's . Better today. Last night started to feel tingling in hands, and not at the moment. Patient Questionnaires Quick Dash- Upper Extremity Quick Dash UE Score 6.8 Quick Dash UE Impairment 1 to 19% Impaired (Score 1-19) OP-PT Pain Assessment Location L hand ring finger Pain Location Details Moving finger, pain between 3rd & 4th fingers Intensity 2 Scale Used Numeric (0 - 10) Description Aching,Sharp Frequency Intermittent Other Pain Alleviating Factors Stretching L hand middle finger Pain Location Details Moving finger, pain between 3rd & 4th fingers Intensity 2 Scale Used Numeric (0 - 10) Description Aching,Sharp Frequency Intermittent Other Pain Alleviating Factors Stretching PT-OP-H Neuro Start: 06/12/21 20:58 Freq: Status: Active Protocol: Document 06/14/21 09:48 LRN (Rec: 06/14/21 11:17 LRN [id number]) Sensation Evaluation Gross Sensation Gross Sensation WNL PT-OP-J Posture/Palpation/Skin Start: 06/12/21 20:58 Freq: Status: Active Protocol: Document 06/14/21 09:48 LRN (Rec: 06/14/21 11:17 LRN [id number]) Palpation Assessment Location L hand volar side Palpation Location Between MCP of digits 3 & 4, Middle finger tendon at crease region Palpation Findings Edema,Tenderness Palpation Details Tightness of web space of L thumb and index finger L hand dorsal side Palpation Location Between MCP of digits 3 & 4 Palpation Findings Edema,Tenderness Palpation Details Pain generally around MCP jts of L middle and ring finger, but greatest between the MCP joints. PT-OP-K Range of Motion Start: 06/12/21 20:58 Freq: Status: Active Protocol: Document 08/12/21 12:49 LRN (Rec: 08/12/21 13:34 LRN [id number]) Wrist Goniometric Range of Motion Wrist Left Flexion Active (degrees) 68 Extension Active (degrees) 85 Ulnar Deviation Active (degrees) 44 Radial Deviation Active (degrees) 25 Right Flexion Active (degrees) 72 Extension Active (degrees) 72 Ulnar Deviation Active (degrees) 44 Radial Deviation Active (degrees) 25 Finger Goniometric Range of Motion Finger Right Fourth Finger ROM WFL No MCP Flexion Active (degrees) 84 MCP Extension Active (degrees) 30 Comments AB is 36 deg's Left Fourth MCP Flexion Active (degrees) 74 MCP Extension Active (degrees) 16 Comments AB is 36 deg's Right Third Finger ROM WFL Yes MCP Flexion Active (degrees) 86 MCP Extension Active (degrees) 28 Left Third MCP Flexion Active (degrees) 86 MCP Extension Active (degrees) 24 PT-OP-M Strength Start: 06/12/21 20:58 Freq: Status: Active Protocol: Document 06/14/21 09:48 LRN (Rec: 06/14/21 11:17 LRN [id number]) Wrist Strength Wrist Manual Muscle Testing Right Comments Generally 5/5 Left Flexion (C7) 4+ Good+ Extension (C6) 5 Normal Ulnar Deviation 5 Normal Radial Deviation 5 Normal Comments Pain with MMT between MCP jt of digits 3 & 4. Finger/Thumb Strength Finger Manual Muscle Testing Left Fourth Flexion (fingers C8) 4 Good Extension (thumb C8) 3+ Fair+ Adduction 4+ Good+ Abduction (fingers T1) 3+ Fair+ Comments Pain between MCP jts of digits 3 & 4 is limiting strength. Left Third Flexion (fingers C8) 4 Good Extension (thumb C8) 3+ Fair+ Adduction 4+ Good+ Abduction (fingers T1) 3+ Fair+ Comments Pain between MCP jts of digits 3 & 4 is limiting strength. Hand Compensation Advisor/Pinch Strength Hand Dominance Hand Dominance Right Hand Strength Right Comments Compensation Advisor (kg) three trials: 22.5, 22.5, 21.9 Avg chief learning officer (kg): 22.3 (norm is 22.5 kg) Left Comments Compensation Advisor (kg) three trials: 14, 12, 15 Avg chief learning officer (kg): 13.7 (norm is 18.6 kg) PT-OP-Q Treatments Start: 06/12/21 20:58 Freq: Status: Active Protocol: Document 09/03/21 10:30 LRN (Rec: 09/03/21 12:24 LRN [id number]) Therapeutic Exercises Supine Exercises Guitar type finger ex Supine Exercise Name Guitar type finger ex Side left Reps/Minutes 4' Sitting Exercises Guitar type finger ex Sitting Exercise Name Guitar type finger ex Side left Reps/Minutes 4' Manual Therapy Treatment Joint Mobilizations Mob w/Movement Joint AP of 4th distal Metacarpel with finger extension to eliminate popping Direction AP Reps/Duration 10x 1, followed by gripping ex Comments No pain or popping noted at ring finger extensor tendon during MWM. Manual Traction Cervical Details L hand fingers flex/ext with/ without manual cervical traction check Body Position Supine Reps/Duration 10' Two different angles of pull Comments Increased middle/ring finger pain initially with neck in neutral with slight extension. Pt had relief of pain in L hand between digitis 3 & 4 while manual traction was performed at 30 deg angle. Self-Care/Home Management Treatment Education Patient Education Posture Other Education Discussed, educated, and reinforced proper head/neck posturing with activities and with guitar playing. Discussed pt's onset of L middle finger pain since last treatment and ex's that appear to be helpful in decreasing pain onset of L hand. PT-OP-R Modalities Start: 06/12/21 20:58 Freq: Status: Active Protocol: Document 08/19/21 12:48 LRN (Rec: 08/19/21 16:13 LRN [id number]) Spinal Traction Traction Treatment Cervical Method Mechanical Patient Position Supine Duration of Treatment (Minutes) 8 Heating Pad Applied Yes Traction Treatment Comment Bean: force changed from 8# to start with slow decline to 4# at end of treatment time PT-OP-T Assessment and Plan Start: 06/12/21 20:58 Freq: Status: Active Protocol: Document 09/03/21 10:30 LRN (Rec: 09/03/21 12:24 LRN [id number]) Physical Therapy Assessment Rehab Potential Rehabilitation Potential Excellent Evaluation Complexity Number of Personal Factors/Comorbidities 3 or More Number of Body Systems Impaired 4 or More Clinical Presentation at Evaluation Evolving Impairments Impairments Activity Tolerance,Pain,ROM, Soft Tissue Mobility,Strength Goals Three Impairment Pain with gripping (3/10) Short Term Goal (STG) Pt will be able to play her guitar for brief period without pain. (07/15/21: Less pain with fist making) STG Duration 09/12/21 (09/03/21: Pt hasn' t attempted) Chcf Goal (LTG) Pt will be able to chief learning officer a jar or can without pain. (09/03/21: Pt can chief learning officer without pain, but not able to untwist without pain). LTG Duration 09/20/21 (09/03/21: Progressed) Two Impairment Decreased function per UE QuickDASH score of 25 (20-39% impaired) Short Term Goal (STG) Improve L hand painfree AROM ( flex, ext, AB) with pt able to dress with less pain. (09/03/21: No pain with dressing, but end range L hand middle finger discomfort with wrist extension) STG Duration 09/12/21 (09/03/21: Partially met goal) Chcf Goal (LTG) Improve L hand function per UE QuickDASH score of 18 or less . (08/12/21: UE QuickDASH score 2.27) LTG Duration 08/13/21 (08/12/21: MET GOAL) One Impairment Pt lacks self care HEP Short Term Goal (STG) Pt will be educated in self care RICE treatment for edema management. STG Duration 06/21/21 (06/17/21: MET GOAL) [facility]cf Goal (LTG) Pt will be independent in a self care HEP. (07/15/21: Added neck stretch and elongation ex to HEP) LTG Duration 09/20/21 (09/03/21: Progressed) Assessment Summary Assessment Pt having intermittent L middle and ring finger pain. She has been able to alleviate her pain some of the time with her neck stretches. She appears to have L MCP jt mechanical dysfunction causing pain with active finger/wrist extension unless volar to dorsal glide applied to hand during active movement. Strengthening of hand may help decrease the pain. The pt would benefit from neck and L hand stabilization strengthening to minimize pain onset with functional activities. Physical Therapy Plan Frequency and Duration Frequency of Treatment 2x/Week Plan of Care Start Date 09/03/21 Plan of Care End Date 09/20/21 Therapeutic Interventions Therapeutic Interventions Home Exercise Program,Manual Therapy,Neuromuscular Re- education,Patient/Caregiver Education,Self-Care/Home Management,Soft Tissue Mobilization,Therapeutic Activities,Therapeutic Exercises Modalities Cold Pack/Ice Massage,Hot Packs Next Visit Focus/Plan Next Note Type Treatment Note Next Visit Plan Possible DC to HEP. UE neural stretch in positions of use (opening jars). Assess response to playing guitar. Education in Postural/Body mechanics. Add HEP to progress L hand, neck/shoulder strengthening as tolerated. Manual C.tx (w/MH) if needed for L hand pain. MWM for L hand tendon gliding & hand strenghtening
--- NOTE | 2021-09-03 17:56 | PT.OPPOC ---
Physical, Occupational & Speech Therapy At [facility] Current Diagnoses Other enthesopathies, not elsewhere classified (09/03/21) Visit Care Team Role Provider Type Rasheeda Jacob MD Primary Care Provider Physician Specialty: Internal Medicine Address: [address] [place] [address], [id number] Email: [email or web address] Jag Robledo MD Attending Provider Non-Staff Referring Provider Specialty: Internal Medicine Address: [address] [place] [address], [id number] Email: Plan Of Care PT-OP-T Assessment and Plan Start: 06/12/21 20:58 Freq: Status: Active Protocol: Document 09/03/21 10:30 LRN (Rec: 09/03/21 12:24 LRN [id number]) Physical Therapy Assessment Rehab Potential Rehabilitation Potential Excellent Evaluation Complexity Number of Personal Factors/Comorbidities 3 or More Number of Body Systems Impaired 4 or More Clinical Presentation at Evaluation Evolving Impairments Impairments Activity Tolerance,Pain,ROM, Soft Tissue Mobility,Strength Goals Three Impairment Pain with gripping (01/30) Short Term Goal (STG) Pt will be able to play her guitar for brief period without pain. (07/15/21: Less pain with fist making) STG Duration 09/12/21 (09/03/21: Pt hasn' t attempted) Solar Sales Advisor Goal (LTG) Pt will be able to anesthesiologist a jar or can without pain. (09/03/21: Pt can anesthesiologist without pain, but not able to untwist without pain). LTG Duration 09/20/21 (09/03/21: Progressed) Two Impairment Decreased function per UE QuickDASH score of 25 (20-39% impaired) Short Term Goal (STG) Improve L hand painfree AROM ( flex, ext, AB) with pt able to dress with less pain. (09/03/21: No pain with dressing, but end range L hand middle finger discomfort with wrist extension) STG Duration 09/12/21 (09/03/21: Partially met goal) Detention Goal (LTG) Improve L hand function per UE QuickDASH score of 18 or less . (08/12/21: UE QuickDASH score 2.27) LTG Duration 08/13/21 (08/12/21: MET GOAL) One Impairment Pt lacks self care HEP Short Term Goal (STG) Pt will be educated in self care RICE treatment for edema management. STG Duration 06/21/21 (06/17/21: MET GOAL) Detention Goal (LTG) Pt will be independent in a self care HEP. (07/15/21: Added neck stretch and elongation ex to HEP) LTG Duration 09/20/21 (09/03/21: Progressed) Assessment Summary Assessment Pt having intermittent L middle and ring finger pain. She has been able to alleviate her pain some of the time with her neck stretches. She appears to have L MCP jt mechanical dysfunction causing pain with active finger/wrist extension unless volar to dorsal glide applied to hand during active movement. Strengthening of hand may help decrease the pain. The pt would benefit from neck and L hand stabilization strengthening to minimize pain onset with functional activities. Physical Therapy Plan Frequency and Duration Frequency of Treatment 2x/Week Plan of Care Start Date 09/03/21 Plan of Care End Date 09/20/21 Therapeutic Interventions Therapeutic Interventions Home Exercise Program,Manual Therapy,Neuromuscular Re- education,Patient/Caregiver Education,Self-Care/Home Management,Soft Tissue Mobilization,Therapeutic Activities,Therapeutic Exercises Modalities Cold Pack/Ice Massage,Hot Packs Next Visit Focus/Plan Next Note Type Treatment Note Next Visit Plan Possible DC to HEP. UE neural stretch in positions of use (opening jars). Assess response to playing guitar. Education in Postural/Body mechanics. Add HEP to progress L hand, neck/shoulder strengthening as tolerated. Manual C.tx (w/MH) if needed for L hand pain. MWM for L hand tendon gliding & hand strenghtening Plan of Care Dates Plan of Care Start Date 09/03/21 Plan of Care End Date 09/20/21 Electronically Signed by: Elza Reyes, PT 09/03/21 1390 Please Sign and Return: I have reviewed this Plan of Care and certify that the skilled therapy services above are required to meet the patient?s needs. Physician Signature Date Printed Name and Credentials Clinical Instructor Signature Printed Name and Credentials
--- NOTE | 2021-09-10 14:19 | PT.OTN ---
Current Diagnoses Other enthesopathies, not elsewhere classified (09/10/21) Physical Therapy Treatment Note PT-OP-A Visit Information Start: 06/12/21 20:58 Freq: Status: Active Protocol: Document 09/10/21 11:15 LRN (Rec: 09/10/21 12:35 LRN [id number]) Out-Patient Physical Therapy Visit Information Visit Information Visit Type Progress Note Visit Note 1 after PN Visit Start Time 11:15 Visit Stop Time 12:00 Total Visit Minutes 45 Visit Number 11 Evaluation Information Evaluation Date 06/14/21 Precautions Precautions MGUS (monoclonalgamopathy) - [facility] primary care physician heriberto use of Ultrasound. Recent back injury of abrasive type from garage door mechanism. Stage IIIB Chronic kidney disease. Chronic back pain. Bilateral knee replacement. R shoulder surgery ( acromioplasty & debridement), L shoulder surgery ( debridement). PT-OP-B Current Condition Start: 06/12/21 20:58 Freq: Status: Active Protocol: Document 06/14/21 09:48 LRN (Rec: 06/14/21 11:17 LRN [id number]) Current Condition History of Current Condition Onset Date 05/12/21 Current Complaints Pain with grasping and extension of fingers. History of Current Condition Putting together a hydralic lift and jammed the L hand ring and middle finger. Treated with ice and splinted it for a week (per internet instructions). Referring physician suggested Voltarin creme on the fingers (thinks it is helpful), so she has been doing that. She has swelling at the top of the hand and has pain with grasping things. Pain is 3/10 . Has been doing active ROM exercises. Pt is R handed. Prior Treatments and Tests Ice, splinted 1 week, now using Voltarin creme. Treatment Goals Patient/Caregiver Goals Pt goal is to be painfree and comfortable using for normal functions of gripping objects, guitar playing. Prior Functional Status Baseline Function- ADL's Independent Baseline Function- Mobility Independent Baseline Function- Recreation/Hobbies Last time played guitar was 7 yrs ago. Current Functional Impairments (Reported) Functional Limitations- ADL's Limited in ability to open jars (uses R hand), grasping can of food sometimes drops ( also did before injuring the hand), pain with dressing. Personal Factors Other Personal Factors That May Effect Chronic back pain, bilateral Therapy/Recovery knee replacement, R shoulder acromioplasty x 2, L shoulder surgery to debride cartilage. MGUS (monoclonalgamopathy) - states primary care physician okays use of Ultrasound. Recent back injury of abrasive type from garage door mechanism. Stage IIIB Chronic kidney disease. PT-OP-C Subjective Start: 06/12/21 20:58 Freq: Status: Active Protocol: Document 09/10/21 11:15 LRN (Rec: 09/10/21 12:35 LRN [id number]) OP-PT Subjective Patient Comments Patient Comments Painful again. L Hand was okay doing the guitar, but lots of shoulder pain on the R side doing guitar. Pulled a muscle in the back last week. Today had L ring and middle finger pain with dressing. With hyperextension of the ring finger hears clicking between the 2 fingers (3rd & 4th fingers). No antony, did do pumpkin pies. PT-OP-H Neuro Start: 06/12/21 20:58 Freq: Status: Active Protocol: Document 06/14/21 09:48 LRN (Rec: 06/14/21 11:17 LRN [id number]) Sensation Evaluation Gross Sensation Gross Sensation WNL PT-OP-J Posture/Palpation/Skin Start: 06/12/21 20:58 Freq: Status: Active Protocol: Document 06/14/21 09:48 LRN (Rec: 06/14/21 11:17 LRN [id number]) Palpation Assessment Location L hand volar side Palpation Location Between MCP of digits 3 & 4, Middle finger tendon at crease region Palpation Findings Edema,Tenderness Palpation Details Tightness of web space of L thumb and index finger L hand dorsal side Palpation Location Between MCP of digits 3 & 4 Palpation Findings Edema,Tenderness Palpation Details Pain generally around MCP jts of L middle and ring finger, but greatest between the MCP joints. PT-OP-K Range of Motion Start: 06/12/21 20:58 Freq: Status: Active Protocol: Document 08/12/21 12:49 LRN (Rec: 08/12/21 13:34 LRN [id number]) Wrist Goniometric Range of Motion Wrist Left Flexion Active (degrees) 68 Extension Active (degrees) 85 Ulnar Deviation Active (degrees) 44 Radial Deviation Active (degrees) 25 Right Flexion Active (degrees) 72 Extension Active (degrees) 72 Ulnar Deviation Active (degrees) 44 Radial Deviation Active (degrees) 25 Finger Goniometric Range of Motion Finger Right Fourth Finger ROM WFL No MCP Flexion Active (degrees) 84 MCP Extension Active (degrees) 30 Comments AB is 36 deg's Left Fourth MCP Flexion Active (degrees) 74 MCP Extension Active (degrees) 16 Comments AB is 36 deg's Right Third Finger ROM WFL Yes MCP Flexion Active (degrees) 86 MCP Extension Active (degrees) 28 Left Third MCP Flexion Active (degrees) 86 MCP Extension Active (degrees) 24 PT-OP-M Strength Start: 06/12/21 20:58 Freq: Status: Active Protocol: Document 06/14/21 09:48 LRN (Rec: 06/14/21 11:17 LRN [id number]) Wrist Strength Wrist Manual Muscle Testing Right Comments Generally 5/5 Left Flexion (C7) 4+ Good+ Extension (C6) 5 Normal Ulnar Deviation 5 Normal Radial Deviation 5 Normal Comments Pain with MMT between MCP jt of digits 3 & 4. Finger/Thumb Strength Finger Manual Muscle Testing Left Fourth Flexion (fingers C8) 4 Good Extension (thumb C8) 3+ Fair+ Adduction 4+ Good+ Abduction (fingers T1) 3+ Fair+ Comments Pain between MCP jts of digits 3 & 4 is limiting strength. Left Third Flexion (fingers C8) 4 Good Extension (thumb C8) 3+ Fair+ Adduction 4+ Good+ Abduction (fingers T1) 3+ Fair+ Comments Pain between MCP jts of digits 3 & 4 is limiting strength. Hand Slice Cutting Machine Operator/Pinch Strength Hand Dominance Hand Dominance Right Hand Strength Right Comments Slice Cutting Machine Operator (kg) three trials: 22.5, 22.5, 21.9 Avg jive developer (kg): 22.3 (norm is 22.5 kg) Left Comments Slice Cutting Machine Operator (kg) three trials: 14, 12, 15 Avg jive developer (kg): 13.7 (norm is 18.6 kg) PT-OP-Q Treatments Start: 06/12/21 20:58 Freq: Status: Active Protocol: Document 09/10/21 11:15 LRN (Rec: 09/10/21 12:35 LRN [id number]) Therapeutic Exercises Supine Exercises Alternate arm lifts Supine Exercise Name Alternate Arm lifts Side bilateral Reps/Minutes 10x 2 Neck Extension Supine Exercise Name Active Neck ext Reps/Minutes 10x Comments Stopped due to dizziness. Neck Elongation against gravity Supine Exercise Name Neck Elongation against gravity Reps/Minutes 5 H x 3, 2 sets C Shira Ext Supine Exercise Name C. Ext Isometrics Reps/Minutes 10 hold x 10 C. Elongation Supine Exercise Name Neck elongation with support Occiput>L3/L4 Reps/Minutes 3' Comments Phys & v cuing during ex to get deep neck flexor contraction Manual Therapy Treatment Manual Traction Cervical Details Gentle Man Corrie Tx: started 30deg's, neded neutral for finger/Rscap p relief. Body Position Supine Reps/Duration 10' Two different angles of pull Comments Extra time to position pt (on MH) and to position pt with neck support, and to vary angle of traction for maximal benefit and pain relief. Relief of pain in L hand between digitis 3 & 4 while manual traction was performed in neutral. Pt had increased R intrascapular pain with traction at 30 deg's. Self-Care/Home Management Treatment Education Patient Education Posture Other Education Educated pt in proper posturing and frequency of using her guitar. Discussed pt's different daily activities of cleaning ( sweeping, pie making, dishes, use of cell phone) and educated in ways to lessen strain on neck with more neutral positioning neck and modifying surfaces and position of cell phone to decrease neck flexion strain at neck. Activities Self-Care/Home Management Activities I/S pt in Upper neck strengthening of alternate arm lifts in supine and sitting. I/S pt in cervical isometric strengthening. I/S pt in slowly progressing neck ext if dizziness occurs. PT-OP-R Modalities Start: 06/12/21 20:58 Freq: Status: Active Protocol: Document 08/19/21 12:48 LRN (Rec: 08/19/21 16:13 LRN [id number]) Spinal Traction Traction Treatment Cervical Method Mechanical Patient Position Supine Duration of Treatment (Minutes) 8 Heating Pad Applied Yes Traction Treatment Comment Bean: force changed from 8# to start with slow decline to 4# at end of treatment time PT-OP-T Assessment and Plan Start: 06/12/21 20:58 Freq: Status: Active Protocol: Document 09/10/21 11:15 LRN (Rec: 09/10/21 12:35 LRN [id number]) Physical Therapy Assessment Goals Four Impairment Decreased neck stability Impairment Onset of L hand pain with use of cell phone or food preparation. Bellstand Attendant Goal (LTG) Pt will be able to use a cell phone for internet browing and general use for 10' with modification for holding of phone, and be able to food prep without onset of L hand pain. LTG Duration 11/22/21 Three Impairment Pain with gripping (3/10) Short Term Goal (STG) Pt will be able to play her guitar for brief period without pain. (09/10/21: Can play guitar for brief period of 5' or less , without pain) STG Duration 09/12/21 (09/10/21: MET GOAL ) Penitentiary Goal (LTG) Pt will be able to open a jar lid or can lid without pain. (09/10/21: Pt can jive developer without pain, but not able to untwist without pain). LTG Duration 11/22/21 (09/10/21: Same from 09/03/21) Two Impairment Decreased function per UE QuickDASH score of 25 (20-39% impaired) Short Term Goal (STG) Improve L hand painfree AROM ( flex, ext, AB) with pt able to dress with less pain. (09/10/21: Pain with dressing , end range L hand middle finger discomfort with wrist extension) STG Duration 09/12/21 (09/10/21: Flare up ; goal not met) Bellstand Attendant Goal (LTG) Improve L hand function per UE QuickDASH score of 18 or less . (08/12/21: UE QuickDASH score 2.27) LTG Duration 08/13/21 (08/12/21: MET GOAL) One Impairment Pt lacks self care HEP Short Term Goal (STG) Pt will be educated in self care RICE treatment for edema management. STG Duration 06/21/21 (06/17/21: MET GOAL) Bellstand Attendant Goal (LTG) Pt will be independent in a self care HEP. (07/15/21: Added neck stretch and elongation ex to HEP) LTG Duration 11/22/21 (09/03/21: Progressed) Assessment Summary Assessment New goals set due to increase in L middle and ring finger with return of pain on dressing. Pt had poor response to supine active neck ext, causing report of dizziness. Pt had similar dizziness and nausea in sitting that subsided after ~ 3'. Pt had slight nausea at end of treatment but felt she was well enough to go home. Pt R eye was larger per pt due to Graves disease affecting only her R eye, pt noted it was a longstanding problem of R eye bulge. Pt has functional difficulties with opening jars, dressing and use of her cell phone due to L hand pain. Pt still presenting with cervical invovlement of hand pain, but there is popping at L hand 4th digit extensor tendon without supportive positioning of distal end of 4th metacarpel bone during finger extension; therefore water valve mechanic dysfunction is present. Pt will benefit from continued physical therapy to work towards achieveing the above stated goals. Physical Therapy Plan Frequency and Duration Frequency of Treatment 1x/Week Plan of Care Start Date 09/10/21 Plan of Care End Date 11/22/21 Next Visit Focus/Plan Next Note Type Treatment Note Next Visit Plan Recheck V. Artery. POC: increase neck stability, decrease radicular pain at L ring/middle finger and R intrascapula region. UE neural stretch in positions of use (opening jars). Assess response to playing guitar. Education in Postural/Body mechanics. Add HEP to progress L hand, neck/shoulder strengthening as tolerated. Manual C.tx (w/MH) if needed for L hand pain. MWM for L hand tendon gliding & hand strenghtening
--- NOTE | 2021-09-10 14:20 | PT.OPPOC ---
Physical, Occupational & Speech Therapy At [facility] Current Diagnoses Other enthesopathies, not elsewhere classified (09/10/21) Visit Care Team Role Provider Type Rasheeda Jacob MD Primary Care Provider Physician Specialty: Internal Medicine Address: [address] [place] [address], [id number] Email: [email or web address] Robledo MD Attending Provider Non-Staff Referring Provider Specialty: Internal Medicine Address: [address] [place] [address], [id number] Email: Plan Of Care PT-OP-T Assessment and Plan Start: 06/12/21 20:58 Freq: Status: Active Protocol: Document 09/10/21 11:15 LRN (Rec: 09/10/21 12:35 LRN [id number]) Physical Therapy Assessment Goals Four Impairment Decreased neck stability Impairment Onset of L hand pain with use of cell phone or food preparation. Prison Goal (LTG) Pt will be able to use a cell phone for internet browing and general use for 10' with modification for holding of phone, and be able to food prep without onset of L hand pain. LTG Duration 11/22/21 Three Impairment Pain with gripping (/10) Short Term Goal (STG) Pt will be able to play her guitar for brief period without pain. (09/10/21: Can play guitar for brief period of 5' or less , without pain) STG Duration 09/12/21 (09/10/21: MET GOAL ) Stockroom Coordinator Goal (LTG) Pt will be able to open a jar lid or can lid without pain. (09/10/21: Pt can spray painting machine operator without pain, but not able to untwist without pain). LTG Duration 11/22/21 (09/10/21: Same from 09/03/21) Two Impairment Decreased function per UE QuickDASH score of 25 (20-39% impaired) Short Term Goal (STG) Improve L hand painfree AROM ( flex, ext, AB) with pt able to dress with less pain. (09/10/21: Pain with dressing , end range L hand middle finger discomfort with wrist extension) STG Duration 09/12/21 (09/10/21: Flare up ; goal not met) Prison Goal (LTG) Improve L hand function per UE QuickDASH score of 18 or less . (08/12/21: UE QuickDASH score 2.27) LTG Duration 08/13/21 (08/12/21: MET GOAL) One Impairment Pt lacks self care HEP Short Term Goal (STG) Pt will be educated in self care RICE treatment for edema management. STG Duration 06/21/21 (06/17/21: MET GOAL) Stockroom Coordinator Goal (LTG) Pt will be independent in a self care HEP. (07/15/21: Added neck stretch and elongation ex to HEP) LTG Duration 11/22/21 (09/03/21: Progressed) Assessment Summary Assessment New goals set due to increase in L middle and ring finger with return of pain on dressing. Pt had poor response to supine active neck ext, causing report of dizziness. Pt had similar dizziness and nausea in sitting that subsided after ~ 3'. Pt had slight nausea at end of treatment but felt she was well enough to go home. Pt R eye was larger per pt due to Graves disease affecting only her R eye, pt noted it was a longstanding problem of R eye bulge. Pt has functional difficulties with opening jars, dressing and use of her cell phone due to L hand pain. Pt still presenting with cervical invovlement of hand pain, but there is popping at L hand 4th digit extensor tendon without supportive positioning of distal end of 4th metacarpel bone during finger extension; therefore tile mechanic helper dysfunction is present. Pt will benefit from continued physical therapy to work towards achieveing the above stated goals. Physical Therapy Plan Frequency and Duration Frequency of Treatment 1x/Week Plan of Care Start Date 09/10/21 Plan of Care End Date 11/22/21 Next Visit Focus/Plan Next Note Type Treatment Note Next Visit Plan Recheck V. Artery. POC: increase neck stability, decrease radicular pain at L ring/middle finger and R intrascapula region. UE neural stretch in positions of use (opening jars). Assess response to playing guitar. Education in Postural/Body mechanics. Add HEP to progress L hand, neck/shoulder strengthening as tolerated. Manual C.tx (w/MH) if needed for L hand pain. MWM for L hand tendon gliding & hand strenghtening Plan of Care Dates Plan of Care Start Date 09/10/21 Plan of Care End Date 11/22/21 Electronically Signed by: Elza Reyes, PT 09/10/21 [id number] Please Sign and Return: I have reviewed this Plan of Care and certify that the skilled therapy services above are required to meet the patient?s needs. Physician Signature Date Printed Name and Credentials Clinical Instructor Signature Printed Name and Credentials
--- NOTE | 2021-09-17 16:12 | PT.OTN ---
Current Diagnoses Other enthesopathies, not elsewhere classified (09/17/21) Physical Therapy Treatment Note PT-OP-A Visit Information Start: 06/12/21 20:58 Freq: Status: Active Protocol: Document 09/17/21 13:31 LRN (Rec: 09/17/21 16:07 LRN [id number]) Out-Patient Physical Therapy Visit Information Visit Information Visit Type Treatment Note Visit Start Time 13:31 Visit Stop Time 14:18 Total Visit Minutes 47 Visit Number 12 Evaluation Information Evaluation Date 06/14/21 Precautions Precautions MGUS (monoclonalgamopathy) - [facility] primary care physician heriberto use of Ultrasound. Recent back injury of abrasive type from garage door mechanism. Stage IIIB Chronic kidney disease. Chronic back pain. Bilateral knee replacement. R shoulder surgery ( acromioplasty & debridement), L shoulder surgery ( debridement). PT-OP-B Current Condition Start: 06/12/21 20:58 Freq: Status: Active Protocol: Document 06/14/21 09:48 LRN (Rec: 06/14/21 11:17 LRN [id number]) Current Condition History of Current Condition Onset Date 05/12/21 Current Complaints Pain with grasping and extension of fingers. History of Current Condition Putting together a hydralic lift and jammed the L hand ring and middle finger. Treated with ice and splinted it for a week (per internet instructions). Referring physician suggested Voltarin creme on the fingers (thinks it is helpful), so she has been doing that. She has swelling at the top of the hand and has pain with grasping things. Pain is 3/10 . Has been doing active ROM exercises. Pt is R handed. Prior Treatments and Tests Ice, splinted 1 week, now using Voltarin creme. Treatment Goals Patient/Caregiver Goals Pt goal is to be painfree and comfortable using for normal functions of gripping objects, guitar playing. Prior Functional Status Baseline Function- ADL's Independent Baseline Function- Mobility Independent Baseline Function- Recreation/Hobbies Last time played guitar was 7 yrs ago. Current Functional Impairments (Reported) Functional Limitations- ADL's Limited in ability to open jars (uses R hand), grasping can of food sometimes drops ( also did before injuring the hand), pain with dressing. Personal Factors Other Personal Factors That May Effect Chronic back pain, bilateral Therapy/Recovery knee replacement, R shoulder acromioplasty x 2, L shoulder surgery to debride cartilage. MGUS (monoclonalgamopathy) - states primary care physician heriberto use of Ultrasound. Recent back injury of abrasive type from garage door mechanism. Stage IIIB Chronic kidney disease. PT-OP-C Subjective Start: 06/12/21 20:58 Freq: Status: Active Protocol: Document 09/17/21 13:31 LRN (Rec: 09/17/21 16:07 LRN [id number]) OP-PT Subjective Patient Comments Patient Comments Doing well and has found she could getting pain relief of hand when hanging her head backward off a rider pod chair (like a agrawal bag chair). Thinks the pain onset has been less. Pulled plants out of pots today. Reports currently having neck pain (5/ 10) and a small amount of ring finger pain. Took extra tramadol due to neck/back pain . PT-OP-H Neuro Start: 06/12/21 20:58 Freq: Status: Active Protocol: Document 06/14/21 09:48 LRN (Rec: 06/14/21 11:17 LRN [id number]) Sensation Evaluation Gross Sensation Gross Sensation WNL PT-OP-J Posture/Palpation/Skin Start: 06/12/21 20:58 Freq: Status: Active Protocol: Document 06/14/21 09:48 LRN (Rec: 06/14/21 11:17 LRN [id number]) Palpation Assessment Location L hand volar side Palpation Location Between MCP of digits 3 & 4, Middle finger tendon at crease region Palpation Findings Edema,Tenderness Palpation Details Tightness of web space of L thumb and index finger L hand dorsal side Palpation Location Between MCP of digits 3 & 4 Palpation Findings Edema,Tenderness Palpation Details Pain generally around MCP jts of L middle and ring finger, but greatest between the MCP joints. PT-OP-K Range of Motion Start: 06/12/21 20:58 Freq: Status: Active Protocol: Document 08/12/21 12:49 LRN (Rec: 08/12/21 13:34 LRN [id number]) Wrist Goniometric Range of Motion Wrist Left Flexion Active (degrees) 68 Extension Active (degrees) 85 Ulnar Deviation Active (degrees) 44 Radial Deviation Active (degrees) 25 Right Flexion Active (degrees) 72 Extension Active (degrees) 72 Ulnar Deviation Active (degrees) 44 Radial Deviation Active (degrees) 25 Finger Goniometric Range of Motion Finger Right Fourth Finger ROM WFL No MCP Flexion Active (degrees) 84 MCP Extension Active (degrees) 30 Comments AB is 36 deg's Left Fourth MCP Flexion Active (degrees) 74 MCP Extension Active (degrees) 16 Comments AB is 36 deg's Right Third Finger ROM WFL Yes MCP Flexion Active (degrees) 86 MCP Extension Active (degrees) 28 Left Third MCP Flexion Active (degrees) 86 MCP Extension Active (degrees) 24 PT-OP-L Special Tests Start: 06/12/21 20:58 Freq: Status: Active Protocol: Document 09/17/21 13:31 LRN (Rec: 09/17/21 16:07 LRN [id number]) Special Tests Cervical Spine Special Tests Vertebral Artery Test Results Negative bilaterally PT-OP-M Strength Start: 06/12/21 20:58 Freq: Status: Active Protocol: Document 06/14/21 09:48 LRN (Rec: 06/14/21 11:17 LRN [id number]) Wrist Strength Wrist Manual Muscle Testing Right Comments Generally 5/5 Left Flexion (C7) 4+ Good+ Extension (C6) 5 Normal Ulnar Deviation 5 Normal Radial Deviation 5 Normal Comments Pain with MMT between MCP jt of digits 3 & 4. Finger/Thumb Strength Finger Manual Muscle Testing Left Fourth Flexion (fingers C8) 4 Good Extension (thumb C8) 3+ Fair+ Adduction 4+ Good+ Abduction (fingers T1) 3+ Fair+ Comments Pain between MCP jts of digits 3 & 4 is limiting strength. Left Third Flexion (fingers C8) 4 Good Extension (thumb C8) 3+ Fair+ Adduction 4+ Good+ Abduction (fingers T1) 3+ Fair+ Comments Pain between MCP jts of digits 3 & 4 is limiting strength. Hand Drainman/Pinch Strength Hand Dominance Hand Dominance Right Hand Strength Right Comments Drainman (kg) three trials: 22.5, 22.5, 21.9 Avg mine promotor (kg): 22.3 (norm is 22.5 kg) Left Comments Drainman (kg) three trials: 14, 12, 15 Avg mine promotor (kg): 13.7 (norm is 18.6 kg) PT-OP-Q Treatments Start: 06/12/21 20:58 Freq: Status: Active Protocol: Document 09/17/21 13:31 LRN (Rec: 09/17/21 16:07 LRN [id number]) Therapeutic Exercises Supine Exercises Sam Shoulder flex Supine Exercise Name Sam shoulder flex w/neck elongation. Side bilateral Equipment Used Lev 1 TB Reps/Minutes 15x Lat Pull Down Supine Exercise Name Lat Pull Down with neck elongation Side bilateral Equipment Used Lev 1 TB Reps/Minutes 15x Shoulder horiz AB/AD Supine Exercise Name Horiz AB/AD with neck elongation Side bilateral Equipment Used 1# Reps/Minutes 15x with & w/o wgt Passive C/S traction Supine Exercise Name Passive C/S traction (sup with plinth head rest retracted into extension). Reps/Minutes positioned until L hand symptoms resolved x 2. Comments Extra time for positioning Alternate arm lifts Supine Exercise Name Alternate Arm lifts with neck elongation Side bilateral Equipment Used 1# Reps/Minutes 15x w/o wgt, 5x, 10x w/1# Comments Pt hand pain started after 5 rep w/1#, but did 10r w/o pn w /elong C AROM Supine Exercise Name Vertebral artery testing Side bilateral Reps/Minutes 3' Comments Negative tests C Shira Ext Supine Exercise Name C. Ext Isometrics Reps/Minutes 10 hold x 10 C. Elongation Supine Exercise Name Neck elongation Reps/Minutes 3' Comments Phys & v cuing during ex to get deep neck flexor contraction Sitting Exercises Sam shoulder flex Sitting Exercise Name Bilateral shoulder flex Side bilateral Equipment Used Lev 1, TB, wrapped around knees Reps/Minutes 15x Comments Extra time needed to determine positioning for max tolerated resistance. Standing Exercises Lat pull down Standing Exercise Name Lat pull down Side bilateral Equipment Used Lev 1 TB, over door Reps/Minutes 15x Self-Care/Home Management Treatment Education Patient Education Home Exercise Program Activities Self-Care/Home Management Activities I/S pt in HEP of neck stab ex' s using UE strengthening ( alternate arm lifts, horiz AB/ AD, sam shoulder flex/ext with TB resistance). Issued Lev 1 TB. PT-OP-R Modalities Start: 06/12/21 20:58 Freq: Status: Active Protocol: Document 08/19/21 12:48 LRN (Rec: 08/19/21 16:13 LRN [id number]) Spinal Traction Traction Treatment Cervical Method Mechanical Patient Position Supine Duration of Treatment (Minutes) 8 Heating Pad Applied Yes Traction Treatment Comment Bean: force changed from 8# to start with slow decline to 4# at end of treatment time PT-OP-T Assessment and Plan Start: 06/12/21 20:58 Freq: Status: Active Protocol: Document 09/17/21 13:31 LRN (Rec: 09/17/21 16:07 LRN [id number]) Physical Therapy Assessment Goals Four Impairment Decreased neck stability Impairment Onset of L hand pain with use of cell phone or food preparation. Vacuum Tank Tender Goal (LTG) Pt will be able to use a cell phone for internet browing and general use for 10' with modification for holding of phone, and be able to food prep without onset of L hand pain. LTG Duration 11/22/21 Three Impairment Pain with gripping (01/30) Short Term Goal (STG) Pt will be able to play her guitar for brief period without pain. (09/10/21: Can play guitar for brief period of 5' or less , without pain) STG Duration 09/12/21 (09/10/21: MET GOAL ) Skilled Nursing Goal (LTG) Pt will be able to open a jar lid or can lid without pain. (09/10/21: Pt can mine promotor without pain, but not able to untwist without pain). LTG Duration 11/22/21 (09/10/21: Same from 09/03/21) Two Impairment Decreased function per UE QuickDASH score of 25 (20-39% impaired) Short Term Goal (STG) Improve L hand painfree AROM ( flex, ext, AB) with pt able to dress with less pain. (09/10/21: Pain with dressing , end range L hand middle finger discomfort with wrist extension) STG Duration 09/12/21 (09/10/21: Flare up ; goal not met) Skilled Nursing Goal (LTG) Improve L hand function per UE QuickDASH score of 18 or less . (08/12/21: UE QuickDASH score 2.27) LTG Duration 08/13/21 (08/12/21: MET GOAL) One Impairment Pt lacks self care HEP Short Term Goal (STG) Pt will be educated in self care RICE treatment for edema management. STG Duration 06/21/21 (06/17/21: MET GOAL) Vacuum Tank Tender Goal (LTG) Pt will be independent in a self care HEP. (07/15/21: Added neck stretch and elongation ex to HEP) (09/17/21: Added neck stabilization with UE strengthening) LTG Duration 11/22/21 (09/03/21: Progressed) Progress Towards Goals Progress Comments Progressed HEP. Assessment Summary Assessment Neg v. artery test bilaterally . Pain relief of L hand with gravity assisted cervical traction in extension position (~20 deg's). Pt able to progress UE strengthening without L hand pain with neck elongation. Physical Therapy Plan Next Visit Focus/Plan Next Note Type Treatment Note Next Visit Plan Possible DC to HEP if pt able to manage her L hand pain. Increase neck stability without causing radicular pain at L ring/middle finger and R intrascapular region. Add HEP to progress L hand gripping ex's, neck stab/ shoulder strengthening as tolerated, and UE neural stretch. Positional supine C. tx if needed for L hand pain. If needed, MWM for L hand tendon gliding & hand strengthening.
--- NOTE | 2021-09-27 13:18 | PT.OTN ---
Current Diagnoses Other enthesopathies, not elsewhere classified (09/27/21) Physical Therapy Treatment Note PT-OP-A Visit Information Start: 06/12/21 20:58 Freq: Status: Active Protocol: Document 09/27/21 10:44 LRN (Rec: 09/27/21 11:16 LRN [id number]) Out-Patient Physical Therapy Visit Information Visit Information Visit Type Treatment Note Visit Start Time 10:44 Visit Stop Time 11:12 Total Visit Minutes 28 Visit Number 13 Evaluation Information Evaluation Date 06/14/21 Precautions Precautions MGUS (monoclonalgamopathy) - [facility] primary care physician heriberto use of Ultrasound. Recent back injury of abrasive type from garage door mechanism. Stage IIIB Chronic kidney disease. Chronic back pain. Bilateral knee replacement. R shoulder surgery ( acromioplasty & debridement), L shoulder surgery ( debridement). PT-OP-B Current Condition Start: 06/12/21 20:58 Freq: Status: Active Protocol: Document 06/14/21 09:48 LRN (Rec: 06/14/21 11:17 LRN [id number]) Current Condition History of Current Condition Onset Date 05/12/21 Current Complaints Pain with grasping and extension of fingers. History of Current Condition Putting together a hydralic lift and jammed the L hand ring and middle finger. Treated with ice and splinted it for a week (per internet instructions). Referring physician suggested Voltarin creme on the fingers (thinks it is helpful), so she has been doing that. She has swelling at the top of the hand and has pain with grasping things. Pain is 3/10 . Has been doing active ROM exercises. Pt is R handed. Prior Treatments and Tests Ice, splinted 1 week, now using Voltarin creme. Treatment Goals Patient/Caregiver Goals Pt goal is to be painfree and comfortable using for normal functions of gripping objects, guitar playing. Prior Functional Status Baseline Function- ADL's Independent Baseline Function- Mobility Independent Baseline Function- Recreation/Hobbies Last time played guitar was 7 yrs ago. Current Functional Impairments (Reported) Functional Limitations- ADL's Limited in ability to open jars (uses R hand), grasping can of food sometimes drops ( also did before injuring the hand), pain with dressing. Personal Factors Other Personal Factors That May Effect Chronic back pain, bilateral Therapy/Recovery knee replacement, R shoulder acromioplasty x 2, L shoulder surgery to debride cartilage. MGUS (monoclonalgamopathy) - states primary care physician heriberto use of Ultrasound. Recent back injury of abrasive type from garage door mechanism. Stage IIIB Chronic kidney disease. PT-OP-C Subjective Start: 06/12/21 20:58 Freq: Status: Active Protocol: Document 09/27/21 10:44 LRN (Rec: 09/27/21 11:16 LRN [id number]) OP-PT Subjective Patient Comments Patient Comments Hasn't done arm ex's. Got shingles and pneumonia vaccine . Had autoimmune response of general ms aches/pains. Has been doing neck ex's and has had no pain in hands since then. Still has swelling in hands and sometimes clicking between the index & middle finger.. PT-OP-H Neuro Start: 06/12/21 20:58 Freq: Status: Active Protocol: Document 06/14/21 09:48 LRN (Rec: 06/14/21 11:17 LRN [id number]) Sensation Evaluation Gross Sensation Gross Sensation WNL PT-OP-J Posture/Palpation/Skin Start: 06/12/21 20:58 Freq: Status: Active Protocol: Document 06/14/21 09:48 LRN (Rec: 06/14/21 11:17 LRN [id number]) Palpation Assessment Location L hand volar side Palpation Location Between MCP of digits 3 & 4, Middle finger tendon at crease region Palpation Findings Edema,Tenderness Palpation Details Tightness of web space of L thumb and index finger L hand dorsal side Palpation Location Between MCP of digits 3 & 4 Palpation Findings Edema,Tenderness Palpation Details Pain generally around MCP jts of L middle and ring finger, but greatest between the MCP joints. PT-OP-K Range of Motion Start: 06/12/21 20:58 Freq: Status: Active Protocol: Document 08/12/21 12:49 LRN (Rec: 08/12/21 13:34 LRN [id number]) Wrist Goniometric Range of Motion Wrist Left Flexion Active (degrees) 68 Extension Active (degrees) 85 Ulnar Deviation Active (degrees) 44 Radial Deviation Active (degrees) 25 Right Flexion Active (degrees) 72 Extension Active (degrees) 72 Ulnar Deviation Active (degrees) 44 Radial Deviation Active (degrees) 25 Finger Goniometric Range of Motion Finger Right Fourth Finger ROM WFL No MCP Flexion Active (degrees) 84 MCP Extension Active (degrees) 30 Comments AB is 36 deg's Left Fourth MCP Flexion Active (degrees) 74 MCP Extension Active (degrees) 16 Comments AB is 36 deg's Right Third Finger ROM WFL Yes MCP Flexion Active (degrees) 86 MCP Extension Active (degrees) 28 Left Third MCP Flexion Active (degrees) 86 MCP Extension Active (degrees) 24 PT-OP-L Special Tests Start: 06/12/21 20:58 Freq: Status: Active Protocol: Document 09/17/21 13:31 LRN (Rec: 09/17/21 16:07 LRN [id number]) Special Tests Cervical Spine Special Tests Vertebral Artery Test Results Negative bilaterally PT-OP-M Strength Start: 06/12/21 20:58 Freq: Status: Active Protocol: Document 06/14/21 09:48 LRN (Rec: 06/14/21 11:17 LRN [id number]) Wrist Strength Wrist Manual Muscle Testing Right Comments Generally 5/5 Left Flexion (C7) 4+ Good+ Extension (C6) 5 Normal Ulnar Deviation 5 Normal Radial Deviation 5 Normal Comments Pain with MMT between MCP jt of digits 3 & 4. Finger/Thumb Strength Finger Manual Muscle Testing Left Fourth Flexion (fingers C8) 4 Good Extension (thumb C8) 3+ Fair+ Adduction 4+ Good+ Abduction (fingers T1) 3+ Fair+ Comments Pain between MCP jts of digits 3 & 4 is limiting strength. Left Third Flexion (fingers C8) 4 Good Extension (thumb C8) 3+ Fair+ Adduction 4+ Good+ Abduction (fingers T1) 3+ Fair+ Comments Pain between MCP jts of digits 3 & 4 is limiting strength. Hand Collector Of Port/Pinch Strength Hand Dominance Hand Dominance Right Hand Strength Right Comments Collector Of Port (kg) three trials: 22.5, 22.5, 21.9 Avg buckle attaching machine operator (kg): 22.3 (norm is 22.5 kg) Left Comments Collector Of Port (kg) three trials: 14, 12, 15 Avg buckle attaching machine operator (kg): 13.7 (norm is 18.6 kg) PT-OP-Q Treatments Start: 06/12/21 20:58 Freq: Status: Active Protocol: Document 09/27/21 10:44 LRN (Rec: 09/27/21 11:16 LRN [id number]) Therapeutic Exercises Supine Exercises Lat Pull Down Supine Exercise Name Lat Pull Down with neck elongation Side bilateral Equipment Used Lev 1 TB Reps/Minutes 15x Shoulder horiz AB/AD Supine Exercise Name Horiz AB/AD with neck elongation Side bilateral Equipment Used 1# Reps/Minutes 15x with & w/o wgt Alternate arm lifts Supine Exercise Name Alternate Arm lifts with neck elongation Side bilateral Equipment Used 1# Reps/Minutes 15x w/o wgt, 5x, 10x w/1# Comments Pt hand pain started after 5 rep w/1#, but did 10r w/o pn w /elong Sitting Exercises Shld AB Sitting Exercise Name AROM jumping rey Side bilateral Reps/Minutes 10x Comments Extra time for determining max movement and positioning. Shoulder rolls Sitting Exercise Name Shldr rolls bkwd Side bilateral Reps/Minutes 15x Resist shldr retract w/elastic Sitting Exercise Name Row with mild Shldr AB Side bilateral Equipment Used Lev 1 Reps/Minutes 10x Comments Extra time for training of proper positioning. Sam shoulder flex Sitting Exercise Name Bilateral shoulder flex Side bilateral Equipment Used Lev 1, TB, wrapped around knees Reps/Minutes 5x. Comments After trying variable tensions , DC'd due to shldr discomfort Self-Care/Home Management Treatment Education Patient Education Home Exercise Program Activities Self-Care/Home Management Activities Issued & reviewed HEP: Shoulder strengthening (stand alt arm lifts, shldr rolls & active AB, supine horiz add; & Isometric neck ext. PT-OP-R Modalities Start: 06/12/21 20:58 Freq: Status: Active Protocol: Document 08/19/21 12:48 LRN (Rec: 08/19/21 16:13 LRN [id number]) Spinal Traction Traction Treatment Cervical Method Mechanical Patient Position Supine Duration of Treatment (Minutes) 8 Heating Pad Applied Yes Traction Treatment Comment Bean: force changed from 8# to start with slow decline to 4# at end of treatment time PT-OP-T Assessment and Plan Start: 06/12/21 20:58 Freq: Status: Active Protocol: Document 09/27/21 10:44 LRN (Rec: 09/27/21 11:16 LRN [id number]) Physical Therapy Assessment Goals Four Impairment Decreased neck stability Impairment Onset of L hand pain with use of cell phone or food preparation. Clinical Dermatologist Goal (LTG) Pt will be able to use a cell phone for internet browing and general use for 10' with modification for holding of phone, and be able to food prep without onset of L hand pain. LTG Duration 11/22/21 (09/27/21: MET GOAL) Three Impairment Pain with gripping (3/10) Short Term Goal (STG) Pt will be able to play her guitar for brief period without pain. (09/10/21: Can play guitar for brief period of 5' or less , without pain) STG Duration 09/12/21 (09/10/21: MET GOAL ) Correction Goal (LTG) Pt will be able to open a jar lid or can lid without pain. (09/10/21: Pt can buckle attaching machine operator without pain, but not able to untwist without pain). (09/27/21: No pain with opening jars). LTG Duration 11/22/21 (09/27/21: MET GOAL) Two Impairment Decreased function per UE QuickDASH score of 25 (20-39% impaired) Short Term Goal (STG) Improve L hand painfree AROM ( flex, ext, AB) with pt able to dress with less pain. (09/10/21: Pain with dressing , end range L hand middle finger discomfort with wrist extension) (09/27/21: No pain with dressing). STG Duration 09/12/21 (09/27/21: MET GOAL) Clinical Dermatologist Goal (LTG) Improve L hand function per UE QuickDASH score of 18 or less . (08/12/21: UE QuickDASH score 2.27) LTG Duration 08/13/21 (08/12/21: MET GOAL) One Impairment Pt lacks self care HEP Short Term Goal (STG) Pt will be educated in self care RICE treatment for edema management. STG Duration 06/21/21 (06/17/21: MET GOAL) Correction Goal (LTG) Pt will be independent in a self care HEP. (07/15/21: Added neck stretch and elongation ex to HEP) (09/17/21: Added neck stabilization with UE strengthening) (09/27/21: Added shoulder strengthening & neck Isometric strengthening). LTG Duration 11/22/21 (11/5/21: MET GOAL) Assessment Summary Assessment The pt attends today with reports of no hand pain. It appears she has been able to manage her pain on her HEP and is ready for discharge to her HEP. 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 Pt may need assessment in the future for the clicking in between L hand 3rd & 4th digits for dysfunction of MCP joints or soft tissue of interossous region; and for persistant swelling in the L hand that pt reports is always present. The pt is being discharged from physical therapy to her independent HEP. Physical Therapy Plan Discharge Physical Therapy Discharge Reasons Goals Met Discharge Comments Pt is being discharged from physical therapy to her independent self care HEP. The pt may need assessment in the future of her R hand, digits 3 and 4, MCP jts or interosseous region due to instability and pt complaints of clicking in the hand. Thank you for your referral.
== END 2021-10-02 13:25 ==
LOC: PHYS 10:30
PROVIDERS: PCP Internal Medicine; Referring Provider Internal Medicine; Visit Provider Internal Medicine
DX: M77.8 Other enthesopathies, not elsewhere classified (principal)
CPT/HCPCS: 97018; 97110; 97140; 97161; 97535

== ENCOUNTER 2022-03-04 07:02 | Emergency (ER) | payer MEDICARE, OTHER, SELFPAY ==
[2022-03-04] VITALS (32 sets, daily range): BP systolic 125–174; BP diastolic 56–78; PULSE 46–78; RESP 12–39; TEMP 36.1; O2SAT 95–100; BMI 24.7
--- NOTE | 2022-03-04 07:08 | DI.RAD.S_ITS ---
PROCEDURE: XR CHEST 2V INDICATIONS: chest pain TECHNIQUE: 2 views of the chest were acquired. COMPARISON: [facility], , CHEST 2 VIEW, 12/01/2012, 8:33. FINDINGS: Surgical changes and devices: Partially visualized spinal fixation screws. Lungs and pleura: Lungs are clear. No pleural effusions or pneumothorax. Mediastinum: Mediastinal contours are normal. Heart size is normal. Bones and chest wall: No suspicious bony abnormalities. Soft tissues appear unremarkable. IMPRESSION: No acute pulmonary process. Dictated by: Claudia Rosas M.D. on 03/04/2022 at 8:29 Approved by: Claudia Rosas M.D. on 03/04/2022 at 8:29
--- NOTE | 2022-03-04 07:15 | ED.CHESTPAIN ---
HPI - Chest Pain General Chief Complaint: Chest Pain Stated Complaint: Chest pains Time Seen by Provider: 03/04/22 07:07 Source: patient Mode of arrival: Ambulatory Limitations: no limitations History of Present Illness HPI narrative: 71-year-old female nonsmoker with history of hypothyroid, sleep apnea presents with a chief complaint of a sudden onset left-sided chest pain that started after waking this morning. She went to bed in her normal state of health and woke up at 5:30 a.m. feeling normal. She was turning her body to the left when she felt a sudden pain in the left side of her chest that seems to be worse when she moves and improves with rest. She denies associated symptoms such as dizziness, weakness or lightheadedness. She denies any shortness of breath, nausea or vomiting. She denies any recent change in her ability to tolerate exercise. She denies recent travel, history of blood clot. Related Data Home Medications Medication Instructions Recorded Confirmed GABAPENTIN (#NEURONTIN) 300 mg PO QDAY #0 12/17/11 03/04/22 rabeprazole 20 mg tablet,delayed 20 mg PO QDAY #0 12/17/11 03/04/22 release (AcipHex) Trazodone Hydrochloride (Trazodone 100 mg PO QDAY #0 02/09/19 03/04/22 HCl) diclofenac sodium 0.1 % eye drops EYE-BOTH ml 02/09/19 08/29/21 fluoxetine 15 mg tablet 30 mg PO DAILY tab 02/09/19 03/04/22 melatonin 10 mg capsule 10 mg PO BEDTIME PRN 02/09/19 03/04/22 tramadol 50 mg tablet 100 mg PO DAILY #0 tab 02/09/19 03/04/22 levothyroxine 75 mcg capsule 75 mcg PO DAILY 02/03/20 03/04/22 calcium citrate 200 mg (950 mg) 400 mg PO DAILY 02/28/21 03/04/22 tablet BIOTIN (#[facility] BIOTIN) 5,000 mcg PO QDAY #0 08/29/21 03/04/22 ascorbic acid (vitamin C) 500 mg 500 mg PO DAILY 08/29/21 03/04/22 tablet cholecalciferol (vitamin D3) 50 50 mcg PO DAILY 08/29/21 03/04/22 mcg (2,000 unit) tablet cyanocobalamin (vitamin B-12) 1,000 mcg IM QMONTH 08/29/21 03/04/22 1,000 mcg/mL injection kit magnesium PO DAILY 08/29/21 methocarbamol 750 mg tablet 750 mg PO Q8H PRN 08/29/21 03/04/22 multivitamin with minerals 1 tab PO DAILY 08/29/21 03/04/22 (Hair,Skin and Nails) vitamin B complex cap 03/04/22 Previous Rx's Medication Instructions Recorded ramelteon 8 mg tablet (Rozerem) 8 mg PO BEDTIME #90 tab MDD 8mg 11/14/21 Allergies Allergy/AdvReac Type Severity Reaction Status Date / Time hydromorphone [HYDROMORPHONE] Allergy Mild HIVS Verified 03/04/22 13:29 levofloxacin [LEVOFLOXACIN] Allergy Mild RASH Verified 03/04/22 13:29 meperidine [MEPERIDINE] Allergy Mild HIVES Verified 03/04/22 13:29 morphine [MORPHINE] Allergy Mild HIVES Verified 03/04/22 13:29 succinylcholine AdvReac Severe RESPIRATORY Verified 03/04/22 13:29 [SUCCINYLCHOLINE] PARALYSIS (ACTUALLY THAT IS WHAT THE DRUG DOES) Review of Systems Review of Systems Narrative: GENERAL: Denies chills, fatigue, malaise, fever, sweats. HEENT: Denies sinus pain, ear pain, sore throat, difficulty swallowing, dizziness. RESPIRATORY: Denies dyspnea, cough, wheezing, hemoptysis, sputum. CARDIOVASCULAR: See HPI GASTROINTESTINAL: Denies nausea, vomiting, abdominal pain, diarrhea, constipation, melena. : Denies dysuria, frequency, incontinence, hematuria, urinary retention. MUSCULOSKELETAL: denies weakness, joint pain, or bony pain SKIN: Denies rash, skin lesions, or other NEUROLOGIC: Denies weakness, headache, numbness, change in speech, confusion, seizures, incoordination. PSYCHIATRIC: No concerning psychosocial issues. 12 point review of systems is negative except for those stated above Patient History Medical History Allergic rhinitis Anxiety Bilateral plantar fasciitis Complex sleep apnea syndrome Depression (~1979) Excessive daytime sleepiness Fibromyalgia GERD (gastroesophageal reflux disease) History of alcohol dependence Hypothyroidism (acquired) Iliotibial band syndrome of right side Obstructive sleep apnea of adult Osteoarthritis Primary insomnia Restless legs syndrome (RLS) Snoring Social History marital status: unmarried,single details: is a [employer] lives independently: Yes caregiver/support person: No housing: house education level: master's degree occupational status: disabled Previous occupational history: psychotherapist russ/bahai: Sikh Smoking Status: Never smoker alcohol intake: former substance use type: does not use Smoking Status: Never smoker alcohol intake frequency: 0-2 drinks per day Substance Use Type: does not use Exam Narrative Exam Narrative: GENERAL: [71] year old patient appears stated age. Well-developed patient, in mild distress. HEAD: Atraumatic. Normocephalic. EYES: Pupils equal round and reactive. Extraocular motions intact. No scleral icterus. No injection or drainage. ENT: Nose without bleeding, purulent drainage. Throat without erythema, tonsillar hypertrophy or exudate. Airway patent. NECK: Trachea midline. Non tender CARDIOVASCULAR: Regular rate and rhythm without murmurs, gallops, or rubs. RESPIRATORY: Clear to auscultation. Breath sounds equal bilaterally. No wheezes, rales, or rhonchi. GASTROINTESTINAL: Abdomen soft, non-tender, nondistended. EXTREMITIES: No edema or joint tenderness. BACK: Nontender without deformity or crepitance. No flank tenderness. NEURO: AOx3. SKIN: No rash or erythema of visible areas Initial Vital Signs Initial Vital Signs: Vital Signs Temperature 96.9 F L 03/04/22 07:07 Pulse Rate 78 03/04/22 07:07 Respiratory Rate 18 03/04/22 07:07 Blood Pressure 169/76 H 03/04/22 07:07 Pulse Oximetry 99 03/04/22 07:07 Course Course Course Narrative: patient develops pain with minimal exertion such as walking to the bathroom but promptly resolved with a few minutes rest. She does developed some shortness of breath with this. Dr. Hamilton hospitalist at [facility] is happy to accept Orders Ordered: ED Orders 03/04/22 07:07 EKG-12 Lead Stat 03/04/22 07:08 XR chest 2V Stat 03/04/22 07:10 Complete Blood Count AUTO DIFF Stat Comprehensive Metabolic Panel Stat D Dimer Stat Lipase Stat NT-proBNP (BNP-Adult 18+) Stat Procalcitonin Stat Troponin & CK Cardiac Panel Stat 03/04/22 09:25 Trop I [Troponin I] Stat 03/04/22 10:30 COVID19 -Nasal RAPID/Pre-Proc Stat 03/04/22 10:58 Partial Thromboplastin Time Stat 03/04/22 12:33 Trop I [Troponin I] Stat 03/04/22 13:25 Trop I [Troponin I] Stat 03/04/22 17:00 PTT [Partial Thromboplastin Time] Q6H 03/04/22 23:00 PTT [Partial Thromboplastin Time] Q6H 03/05/22 05:00 Hemoglobin and Hematocrit DAILY PTT [Partial Thromboplastin Time] Q6H 03/05/22 11:00 PTT [Partial Thromboplastin Time] Q6H Sodium Chloride (Normal Saline 0.9%) 1,000 mls @ 150 mls/hr IV CONT CLEMENTINE Last Admin: 03/04/22 07:37 Dose: 150 mls/hr Documented by: LISA Heparin Sodium/Dextrose (Heparin Drip) 25,000 unit in 500 mls @ 14.696 mls/hr IV CONT CLEMENTINE; Protocol Last Admin: 03/04/22 11:16 Dose: 12 units/kg/hr, 14.696 mls/hr Documented by: WILMER Nitroglycerin (Nitroglycerin 0.4 Mg Sl Tab) 0.4 mg SL [id number] PRN PRN Reason: Chest Pain Discontinued Medications Aspirin (Aspirin 81 Mg Chew Tab) 324 mg PO NOW ONE Stop: 03/04/22 07:08 Last Admin: 03/04/22 07:35 Dose: 243 mg Documented by: LISA Atorvastatin Calcium (Atorvastatin 20 Mg Tablet) 40 mg PO NOW ONE Stop: 03/04/22 10:54 Last Admin: 03/04/22 11:17 Dose: 40 mg Documented by: WILMER Heparin Sodium (Porcine) (Heparin 5,000 Unit/Ml Vial) 4,000 unit IV NOW ONE Stop: 03/04/22 10:54 Last Admin: 03/04/22 11:11 Dose: 4,000 unit Documented by: WILMER Metoprolol Tartrate (Metoprolol Ir 25 Mg Tablet) 25 mg PO NOW ONE Stop: 03/04/22 09:12 Last Admin: 03/04/22 09:24 Dose: 25 mg Documented by: INDY Reevaluation(s) Reevaluation #1: patient no longer having pain soon after check in Reevaluation #2: pain back after patient has ambulated to the ED resolves with rest, prior to NG given Consultations Consultation #1: discussed with java consultant cardio at [facility] (Irena) given old t wave inversions and pain with exertion she will need transfer to [facility] for echo and possible cath. Recommends ASA, Metoprolol, Statin, heparin drip call to [facility], no beds available call to [place]. No beds call to [facility] Will get cardio on the phone. Consultation #2: discussed with java consultant cardio at [facility]. Happy to be involved in consultation, request admission to hospitalist Vital Signs Vital signs: Vital Signs - 8 hr 03/04/22 07:07 03/04/22 07:08 03/04/22 07:30 Temperature 96.9 F L Pulse Rate 78 70 56 L Respiratory Rate 18 20 12 Blood Pressure 169/76 H Pulse Oximetry 99 98 95 03/04/22 07:31 03/04/22 08:00 03/04/22 08:30 Temperature Pulse Rate 57 L 52 L 57 L Respiratory Rate 12 19 20 Blood Pressure 146/65 H Pulse Oximetry 95 95 95 03/04/22 09:00 03/04/22 09:19 03/04/22 09:30 Temperature Pulse Rate 60 56 L 55 L Respiratory Rate 20 14 20 Blood Pressure 146/70 H Pulse Oximetry 96 99 99 03/04/22 09:31 03/04/22 10:00 03/04/22 10:20 Temperature Pulse Rate 55 L 56 L 48 L Respiratory Rate 18 20 20 Blood Pressure 125/56 L 173/73 H Pulse Oximetry 100 98 99 03/04/22 10:30 03/04/22 10:31 03/04/22 11:00 Temperature Pulse Rate 51 L 50 L 47 L Respiratory Rate 16 17 20 Blood Pressure 140/63 Pulse Oximetry 97 97 97 03/04/22 11:30 03/04/22 11:31 Temperature Pulse Rate 47 L 48 L Respiratory Rate 21 23 Blood Pressure 174/78 H Pulse Oximetry 98 98 MDM - Chest Pain Lab Data Result diagrams: 03/04/22 07:10 03/04/22 07:10 Labs: Lab Results 03/04/22 03/04/2203/04/22 Range/Units 07:10 07:10 07:10 WBC 4.5 (4.5-11.0) X10^3/uL RBC 4.00 (4.0-5.2) X10^6/uL Hgb 12.1 (12.0-16.0) g/dL Hct 36.5 (36-46) % MCV 91.2 (80-100) fL MCH 30.3 (26-34) PG MCHC 33.2 (30-36) % RDW 13.7 (11.6-14.8) % Plt Count 224 (150-400) X10^3/uL Neut % (Auto) 57.3 (50-75) % Lymph % (Auto) 30.2 (25-40) % [place] % (Auto) 8.5 (3-14) % Eos % (Auto) 3.6 (2-4) % Baso % (Auto) 0.4 (0-2) % Neut # (Auto) 2600 (5385-1122) /uL Lymph # (Auto) 1400 (9935-7913) /uL [place] # (Auto) 400 (0-900) /uL Eos # (Auto) 200 (0-450) /uL Baso # (Auto) 0 (0-100) /uL APTT (26.4-36.2) SECONDS D-Dimer 385 H (<230) ng/mL Sodium 140 (137-145) mmol/L Potassium 3.9 (3.4-5.1) mmol/L Chloride 105 (98-107) mmol/L Carbon Dioxide 27 (22-32) mmol/L BUN 20 H (7-17) mg/dL Creatinine 1.31 H (0.52-1.04) mg/dL Estimated GFR 43.8 L (>60) mL/min BUN/Creatinine Ratio 15.3 (6-22) Glucose 92 (80-110) mg/dL Calcium 8.9 (8.4-10.2) mg/dL Total Bilirubin 0.3 (0.2-1.3) mg/dL AST 29 (14-36) IU/L ALT 18 (<35) IU/L Alkaline Phosphatase 69 (38-126) U/L Total Creatine Kinase 151 H (30-135) U/L CK-MB (CK-2) < 0.22 (<2.37) ng/mL CK-MB (CK-2) Rel Index 0.1 L (1.5-5.0) % Troponin I < 0.012 (0.01-0.034) ng/mL NT-Pro-B Natriuret Pep 40 (<125) pg/mL Total Protein 7.3 (6.3-8.2) g/dL Albumin 4.3 (3.5-5.0) g/dL Globulin 3.0 (1.7-4.1) g/dL Albumin/Globulin Ratio 1.4 (1.0-2.8) Lipase 127 (23-300) U/L Procalcitonin 0.03 (<0.5) ng/mL SARS-CoV-2 (PCR) (Negative) 03/04/22 03/04/22 03/04/22 Range/Units 09:25 10:30 10:58 WBC (4.5-11.0) X10^3/uL RBC (4.0-5.2) X10^6/uL Hgb (12.0-16.0) g/dL Hct (36-46) % MCV (80-100) fL MCH (26-34) PG MCHC (30-36) % RDW (11.6-14.8) % Plt Count (150-400) X10^3/uL Neut % (Auto) (50-75) % Lymph % (Auto) (25-40) % [place] % (Auto) (3-14) % Eos % (Auto) (2-4) % Baso % (Auto) (0-2) % Neut # (Auto) (4069-3982) /uL Lymph # (Auto) (3841-2266) /uL [place] # (Auto) (0-900) /uL Eos # (Auto) (0-450) /uL Baso # (Auto) (0-100) /uL APTT 33 (26.4-36.2) SECONDS D-Dimer (<230) ng/mL Sodium (137-145) mmol/L Potassium (3.4-5.1) mmol/L Chloride (98-107) mmol/L Carbon Dioxide (22-32) mmol/L BUN (7-17) mg/dL Creatinine (0.52-1.04) mg/dL Estimated GFR (>60) mL/min BUN/Creatinine Ratio (6-22) Glucose (80-110) mg/dL Calcium (8.4-10.2) mg/dL Total Bilirubin (0.2-1.3) mg/dL AST (14-36) IU/L ALT (<35) IU/L Alkaline Phosphatase (38-126) U/L Total Creatine Kinase (30-135) U/L CK-MB (CK-2) (<2.37) ng/mL CK-MB (CK-2) Rel Index (1.5-5.0) % Troponin I < 0.012 (0.01-0.034) ng/mL NT-Pro-B Natriuret Pep (<125) pg/mL Total Protein (6.3-8.2) g/dL Albumin (3.5-5.0) g/dL Globulin (1.7-4.1) g/dL Albumin/Globulin Ratio (1.0-2.8) Lipase (23-300) U/L Procalcitonin (<0.5) ng/mL SARS-CoV-2 (PCR) Negative (Negative) 03/04/22 Range/Units 12:33 WBC (4.5-11.0) X10^3/uL RBC (4.0-5.2) X10^6/uL Hgb (12.0-16.0) g/dL Hct (36-46) % MCV (80-100) fL MCH (26-34) PG MCHC (30-36) % RDW (11.6-14.8) % Plt Count (150-400) X10^3/uL Neut % (Auto) (50-75) % Lymph % (Auto) (25-40) % [place] % (Auto) (3-14) % Eos % (Auto) (2-4) % Baso % (Auto) (0-2) % Neut # (Auto) (8362-2531) /uL Lymph # (Auto) (4008-8476) /uL [place] # (Auto) (0-900) /uL Eos # (Auto) (0-450) /uL Baso # (Auto) (0-100) /uL APTT (26.4-36.2) SECONDS D-Dimer (<230) ng/mL Sodium (137-145) mmol/L Potassium (3.4-5.1) mmol/L Chloride (98-107) mmol/L Carbon Dioxide (22-32) mmol/L BUN (7-17) mg/dL Creatinine (0.52-1.04) mg/dL Estimated GFR (>60) mL/min BUN/Creatinine Ratio (6-22) Glucose (80-110) mg/dL Calcium (8.4-10.2) mg/dL Total Bilirubin (0.2-1.3) mg/dL AST (14-36) IU/L ALT (<35) IU/L Alkaline Phosphatase (38-126) U/L Total Creatine Kinase (30-135) U/L CK-MB (CK-2) (<2.37) ng/mL CK-MB (CK-2) Rel Index (1.5-5.0) % Troponin I < 0.012 (0.01-0.034) ng/mL NT-Pro-B Natriuret Pep (<125) pg/mL Total Protein (6.3-8.2) g/dL Albumin (3.5-5.0) g/dL Globulin (1.7-4.1) g/dL Albumin/Globulin Ratio (1.0-2.8) Lipase (23-300) U/L Procalcitonin (<0.5) ng/mL SARS-CoV-2 (PCR) (Negative) Imaging Data Chest x-ray: Radiologist's Impression: Launch?[address] [address] XRay Report Signed Patient: Mary Vaughn MR#: [id number] : 1950 Acct:[id number] Age/Sex: 71 / F Date of Service: 03/04/22 Loc: ED Accession Number: [id number] ?? Procedure: XR chest 2V Ordering Provider: Pratik Fuller D.O. PROCEDURE:? XR CHEST 2V ? INDICATIONS:? chest pain ? TECHNIQUE:? 2 views of the chest were acquired.? ? COMPARISON:? [facility], CHEST 2 VIEW, 12/01/2012, 8:33. ? FINDINGS:? ? Surgical changes and devices:? Partially visualized spinal fixation screws. ? Lungs and pleura:? Lungs are clear.? No pleural effusions or pneumothorax.? ? Mediastinum:? Mediastinal contours are normal.? Heart size is normal.? ? Bones and chest wall:? No suspicious bony abnormalities.? Soft tissues appear unremarkable.? ? IMPRESSION:? No acute pulmonary process. ? ? Dictated by: Claudia Rosas M.D. on 03/04/2022 at 8:29 ? ? Approved by: Claudia Rosas M.D. on 03/04/2022 at 8:29? MDM Narrative Medical decision making narrative: Patient presents with left-sided chest pain that worsens with exertion and improves with rest. She does have nonspecific T-wave abnormalities in her anteroseptal leads that were noted on an EKG from a few years ago. There are no new occlusive findings. Pain is well controlled with patient rests. Troponin x2 unremarkable. Given her exertional pain call was placed to Cardiology, she will require transport to hospital when the patient Cardiology and the possible need for intervention given she is essentially failing a stress test with each attempt at ambulation. Calls placed to [facility], there are no beds in [place], no beds. Patient excepted at [facility] for further evaluation Discharge Plan Departure Patient Disposition: [facility] Clinical Impression: Angina pectoris, unstable Instructions: Acute Coronary Syndrome Prescriptions: No Action rabeprazole [AcipHex] 20 MG tablet,delayed release (DR/EC) 20 mg PO QDAY Qty: 0 0RF Label Comments: pt takes in the morning GABAPENTIN (#NEURONTIN) 300 mg PO QDAY Qty: 0 0RF Label Comments: takes at bedtime tramadol 50 mg tablet 100 mg PO DAILY Qty: 0 0RF Label Comments: 1-2 times daily Trazodone Hydrochloride (Trazodone HCl) 100 mg PO QDAY Qty: 0 0RF Label Comments: takes at bedtime BIOTIN (#[facility] BIOTIN) 5,000 mcg PO QDAY Qty: 0 0RF Label Comments: takes in the morning ramelteon [Rozerem] 8 mg tablet 8 mg PO BEDTIME MDD 8mg Qty: 90 3RF Label Comments: pt takes at bedtime vitamin B complex [B Complex] Capsule 0RF Label Comments: pt takes in the morning levothyroxine 75 mcg capsule 75 mcg PO DAILY 0RF Label Comments: takes in the morning methocarbamol 750 mg tablet 750 mg PO Q8H PRN (Reason: ) 0RF Label Comments: pt takes at bedtime ascorbic acid (vitamin C) 500 mg tablet 500 mg PO DAILY 0RF Label Comments: takes in the morning multivitamin with minerals [Hair,Skin and Nails] Tablet 1 tab PO DAILY 0RF Label Comments: takes in the morning magnesium PO DAILY 0RF Label Comments: takes at bedtime cyanocobalamin (vitamin B-12) 1,000 mcg/mL kit 1,000 mcg IM QMONTH 0RF Label Comments: pt states she is due for her next injection cholecalciferol (vitamin D3) 50 mcg (2,000 unit) tablet 50 mcg PO DAILY 0RF Label Comments: takes in the morning fluoxetine 15 mg tablet 30 mg PO DAILY 0RF Label Comments: takes at bedtime melatonin 10 mg capsule 10 mg PO BEDTIME PRN (Reason: Insomnia) 0RF Label Comments: takes at bedtime diclofenac sodium 0.1 % drops EYE-BOTH 0RF Label Comments: taken at 0540 calcium citrate 200 mg (950 mg) tablet 400 mg PO DAILY 0RF Label Comments: takes in the morning Referrals: Rasheeda Jacob MD [Primary Care Provider] -
[2022-03-04 07:27] LABS: Add Manual Diff / Slide Review NO; Basophils Absolute Auto 0 /uL (0-100); Basophils Percent Auto 0.4 % (0-2); Eosinophils Absolute Auto 200 /uL (0-450); Eosinophils Percent Auto 3.6 % (2-4); Hematocrit 36.5 % (36-46); Hemoglobin 12.1 g/dL (12.0-16.0); Lymphocytes Absolute Auto 1400 /uL (1100-4500); Lymphocytes Percent Auto 30.2 % (25-40); Mean Corpuscular HGB Conc 33.2 % (30-36); Mean Corpuscular Hemoglobin 30.3 PG (26-34); Mean Corpuscular Volume 91.2 fL (80-100); Monocytes Absolute Auto 400 /uL (0-900); Monocytes Percent Auto 8.5 % (3-14); Neutrophils Absolute Auto 2600 /uL (1500-7000); Neutrophils Percent Auto 57.3 % (50-75); Platelet Count 224 X10^3/uL (150-400); Red Cell Distribution Width 13.7 % (11.6-14.8); White Blood Cell Count 4.5 X10^3/uL (4.5-11.0)
[2022-03-04 07:35] LABS: Alanine Aminotransferase 18 IU/L (<35); Albumin 4.3 g/dL (3.5-5.0); Albumin Globulin Ratio 1.4 (1.0-2.8); Alkaline Phosphatase 69 U/L (38-126); Aspartate Aminotransferase 29 IU/L (14-36); BUN Creatinine Ratio 15.3 (6-22); Bilirubin Total 0.3 mg/dL (0.2-1.3); Blood Urea Nitrogen 20 mg/dL (7-17); Calcium 8.9 mg/dL (8.4-10.2); Carbon Dioxide 27 mmol/L (22-32); Chloride 105 mmol/L (98-107); Creatine Kinase 151 U/L (30-135); Estimated Glomerular Filt Rate 43.8 mL/min (>60); Glucose 92 mg/dL (80-110); HEMOLYSIS < 15 (0-50); Lipase 127 U/L (23-300); Potassium 3.9 mmol/L (3.4-5.1); Sodium 140 mmol/L (137-145); Total Protein 7.3 g/dL (6.3-8.2)
[2022-03-04] MEDS: ASPIRIN 81 MG CHEW TAB 324 MG PO (07:35)
[2022-03-04] MEDS: SODIUM CHLORIDE 0.9% 1,000 ML 150 ML IV (07:37)
[2022-03-04 07:42] LABS: D Dimer 385 ng/mL (<230)
[2022-03-04 07:47] LABS: NT-proBNP (BNP-Adult 18+) 40 pg/mL (<125); Troponin I < 0.012 ng/mL (0.01-0.034)
[2022-03-04 07:50] LABS: CKMB % Relative Index 0.1 % (1.5-5.0); Creatine Kinase MB < 0.22 ng/mL (<2.37)
[2022-03-04 07:51] LABS: Procalcitonin 0.03 ng/mL (<0.5)
[2022-03-04] MEDS: METOPROLOL IR 25 MG TABLET PO (09:24)
[2022-03-04 09:55] LABS: Troponin I < 0.012 ng/mL (0.01-0.034)
[2022-03-04 11:04] LABS: PTT Partial Thromboplastin Tim 33 SECONDS (26.4-36.2)
[2022-03-04 11:06] LABS: COVID19 -Nasal RAPID Negative (Negative)
[2022-03-04] MEDS: HEPARIN 5,000 UNIT/ML VIAL 4000 UNIT IV (11:11)
[2022-03-04] MEDS: HEPARIN DRIP 25,000 UNIT/500 ML IV.SOLN 14.696 UNIT IV (11:16)
[2022-03-04] MEDS: ATORVASTATIN 20 MG TABLET 40 MG PO (11:17)
--- NOTE | 2022-03-04 12:11 | PC.NURSE ---
Attempting to find cardiology, higher level of care for patient. [place]/waitlist prov/ waitlist [facility]/waitlist [facility]/full, no waitling list [place]: message left Dr. Fuller and primary RN aware.
[2022-03-04 13:12] LABS: Troponin I < 0.012 ng/mL (0.01-0.034)
--- NOTE | 2022-03-04 14:49 | PC.NURSE ---
Pt verbalized understanding of transfer and signed EMTALA, no questions / concerns. [facility] accepted to [facility], Room [facility]28, report to be called to [phone]. [facility] ETA [phone].
--- NOTE | 2022-03-04 16:23 | PC.NURSE ---
attempted to call nurse report [phone], nurse stated she was in the middle of pt care and wanted a call back in 5min. attempted to call nurse back at 1620, was told by charge nurse that pt's nurse was unavailable and to call back in 5 min. asked charge nurse to have the pts nurse call me when she is not busy and gave an ETA of 20min, informed them pt is already en route.
== END 2022-03-04 16:18 | disposition short-term general hospital (02) ==
PROVIDERS: Emergency Provider Emergency Medicine; PCP Internal Medicine
DX: I20.0 Unstable angina (principal); Z20.822 Contact with and (suspected) exposure to COVID-19
CPT/HCPCS: 36415; 71046; 80053; 82550; 82553; 83690; 83880; 84145; 84484; 85025; 85379; 85730; 87635; 93005; 93010; 96361; 96365; 96366; 99284; 99285; C9803; J1644

== ENCOUNTER → 2023-02-06 14:32 | Outpatient (CLI) | payer MEDICARE, OTHER, SELFPAY ==
[2023-02-07 18:44] LABS: SS A Ro Sjogrens Antibody < 0.2 AI (0.0-0.9); SS B La Sjogrens Antibody < 0.2 AI (0.0-0.9)
== END ==
PROVIDERS: PCP Internal Medicine; Referring Provider Dentist; Visit Provider Dentist
DX: R68.2 Dry mouth, unspecified (principal); K12.1 Other forms of stomatitis
CPT/HCPCS: 36415; 86235

== ENCOUNTER → 2024-06-23 11:54 | Outpatient (CLI) | payer MEDICARE, OTHER, SELFPAY ==
--- NOTE | 2024-06-23 11:57 | DI.RAD.S_ITS ---
PROCEDURE: XR ELBOW LT 2V INDICATIONS: ELBOW PAIN TECHNIQUE: 3 views of the elbow were acquired. COMPARISON: None. FINDINGS: No fracture or dislocation. No significant elbow joint effusion. Small osteophyte along the proximal margin of the ulna/coronoid process with mild ulnotrochlear joint space narrowing IMPRESSION: Mild ulnotrochlear osteoarthritis. Dictated by: Joseph Bermeo M.D. on 06/23/2024 at 13:40 Approved by: Joseph Bermeo M.D. on 06/23/2024 at 13:45
--- NOTE | 2024-06-23 11:57 | DI.RAD.S_ITS ---
PROCEDURE: XR SHOULDER LT MIN 2V INDICATIONS: SHOULDER PAIN TECHNIQUE: 3 views of the shoulder were acquired. [facility] [place], [place] SHOULDER MIN 2VW LT, 08/13/2016, 9:41. FINDINGS: Mild diffuse osseous demineralization. Slightly widened appearance of the acromioclavicular joint with possible distal clavicular resection; please correlate with the patient's prior surgical history. Mild glenohumeral osteoarthritis with new, small osteophytes along the inferior medial margin of the humeral head. No fracture or dislocation. The visualized left hemithorax is within normal limits. IMPRESSION: Status post likely prior distal clavicular resection with mild glenohumeral osteoarthritis. No fracture or dislocation. Dictated by: Joseph Bermeo M.D. on 06/23/2024 at 13:36 Approved by: Joseph Bermeo M.D. on 06/23/2024 at 13:40
== END ==
PROVIDERS: PCP Internal Medicine; Referring Provider Internal Medicine; Visit Provider Internal Medicine
DX: M19.012 Primary osteoarthritis, left shoulder (principal); M19.022 Primary osteoarthritis, left elbow; M25.522 Pain in left elbow; M25.512 Pain in left shoulder
CPT/HCPCS: 73030; 73070

== ENCOUNTER → 2024-07-18 11:49 | Outpatient (CLI) | payer MEDICARE, OTHER, SELFPAY ==
--- NOTE | 2024-07-18 11:51 | DI.RAD.S_ITS ---
PROCEDURE: XR DEXA AXIAL SKELETON INDICATIONS: POSTMENOPAUSAL STATUS COMPARISON: [facility], CR, XR DEXA AXIAL SKELETON, 11/05/2020, 14:57. FINDINGS: Left Hip: Bone mineral density 0.782 g/cm2, T score -1.3, osteopenia. Left Femoral Neck: Bone mineral density 0.682 g/cm2, T score -1.5, osteopenia. Right Hip: Bone mineral density 0.781 g/cm2, T score -1.3, osteopenia. Right Femoral Neck: Bone mineral density is 0.687 g/cm2, T score -1.5, osteopenia Left Forearm: Bone mineral density 0.454 g/cm2, T score -2.3, osteopenia. Fracture Risk Calculation (when applicable): 10-year fracture risk of a major osteoporotic fracture 10 and of a hip fracture 1.8. (T score greater or equal to -1.0 to: NORMAL) (T score from -1.1 to -2.4: OSTEOPENIA) (T score less than or equal to -2.5: OSTEOPOROSIS) IMPRESSION: Osteopenia Follow-up guidelines as follows: Osteoporosis: Consider a repeat DEXA and Vertebral Fracture Assessment (VFA) exam in 2 years or sooner if medically necessary, to reassess this patient's status. Osteopenia: Consider a repeat DEXA in 2-3 years to reassess this patient's status, or if there is a new clinical indication. Normal: Consider a repeat DEXA in 5 years or sooner, or if there is a new clinical indication. All treatment decisions require clinical judgment and consideration of individual patient factors, including patient preferences, comorbidities, previous drug use, risk factors not captured in the FRAX model (e.g., frailty, falls, vitamin D deficiency, increased bone turnover, interval significant decline in bone density ) and possible under- or over-estimation of fracture risk by FRAX. In addition, the NOF Guide recommends that FDA-approved medical therapies be considered in postmenopausal women and men age >= 50 years with a: * Hip or vertebral (clinical or morphometric) fracture * T-score of <=-2.5 at the spine or hip * Ten-year fracture probability by FRAX of >= 3% for hip fracture or >=20% for major osteoporotic fracture. People with diagnosed cases of osteoporosis or at high risk for fracture should have regular bone mineral density tests. For patients eligible for Medicare, routine testing is allowed once every 2 years. The testing frequency can be increased to one year for patients who have rapidly progressing disease, those who are receiving or discontinuing medical therapy to restore bone mass, or have additional risk factors. Dictated by: Joe Connolly M.D. on 07/18/2024 at 13:06 Approved by: Joe Connolly M.D. on 07/18/2024 at 13:10
== END ==
LOC: RAD 11:50
PROVIDERS: PCP Internal Medicine; Referring Provider Internal Medicine; Visit Provider Internal Medicine
DX: M85.89 Other specified disorders of bone density and structure, multiple sites (principal); Z78.0 Asymptomatic menopausal state
CPT/HCPCS: 77080; 77081

== ENCOUNTER → 2024-07-22 12:54 | Outpatient (CLI) | payer MEDICARE, OTHER, SELFPAY ==
--- NOTE | 2024-07-22 12:55 | DI.MRI.S_ITS ---
PROCEDURE: MR HEAD/BRAIN WO CON INDICATIONS: VERTIGO,NEURO DEFICIT,STROKE SUSPECTED TECHNIQUE: Non-contrast axial T1 spin echo, axial T2 fast spin echo, sagittal and axial FLAIR, coronal T2 fast spin echo, axial gradient echo, axial diffusion and ADC through the brain. COMPARISON: None. FINDINGS: Image quality: Excellent. CSF spaces: Ventricles appear symmetric in size and shape. Basal cisterns are patent. No extra-axial fluid collections. Brain: No intracranial bleeds or mass effects. There is cerebral volume loss for age. There are periventricular and deep white matter chronic small vessel ischemic changes. Brainstem appears normal. Diffusion-weighted images show no acute infarct. No chronic ischemic insults. Normal intravascular flow voids are present. Skull and face: Calvarial bone marrow is normal in signal. Orbits are normal. Sinuses: Sinuses and mastoids are clear. IMPRESSION: No acute or subacute infarct. No acute intracranial abnormalities. Age-appropriate global volume loss and chronic microvascular ischemic changes. Dictated by: Thiago Grant M.D. on 07/22/2024 at 14:42 Approved by: Thiago Grant M.D. on 07/22/2024 at 14:48
== END ==
PROVIDERS: PCP Internal Medicine; Referring Provider Internal Medicine; Visit Provider Internal Medicine
DX: R42 Dizziness and giddiness (principal)
CPT/HCPCS: 70551

== ENCOUNTER → 2024-09-21 09:55 | Outpatient (CLI) | payer MEDICARE, OTHER, SELFPAY ==
--- NOTE | 2024-09-21 09:58 | DI.RAD.S_ITS ---
PROCEDURE: XR CHEST 2V INDICATIONS: Cough, unspecified TECHNIQUE: 2 views of the chest were acquired. COMPARISON: [facility], CR, XR CHEST 2V, 03/04/2022, 7:28. FINDINGS: Surgical changes and devices: None. Lungs and pleura: Lungs are clear. No pleural effusions or pneumothorax. Mediastinum: Mediastinal contours are normal. Heart size is normal. Bones and chest wall: No suspicious bony abnormalities. Soft tissues appear unremarkable. IMPRESSION: No acute cardiopulmonary abnormality is seen. Dictated by: Marlo Cruz M.D. on 09/21/2024 at 11:32 Approved by: Marlo Cruz M.D. on 09/21/2024 at 11:33
== END ==
PROVIDERS: Family Provider Internal Medicine; PCP Internal Medicine; Referring Provider Internal Medicine; Visit Provider Internal Medicine
DX: R05.9 Cough, unspecified (principal)
CPT/HCPCS: 71046

== ENCOUNTER → 2024-12-01 08:48 | Outpatient (CLI) | payer MEDICARE, OTHER, SELFPAY ==
--- NOTE | 2024-12-01 17:46 | DI.NM.S_ITS ---
DATE OF SERVICE: 12/01/2024 NUCLEAR CARDIOLOGY MYOCARDIAL PERFUSION STUDY PROCEDURE: Exercise treadmill converted to pharmacologic vasodilator stress and rest myocardial perfusion imaging with gating to assess ejection fraction and regional wall motion. ORDERING PROVIDER: Dr. Rasheeda Jacob. INDICATIONS: The patient is a 74-year-old hypertensive female with obstructive sleep apnea, bradycardia, and limiting dyspnea and atypical chest discomfort. CARDIAC STRESS: The patient was initially stressed by treadmill but was able to exercise for only 2 minutes 30 seconds on a standard Prateek protocol, suggesting severely reduced exercise capacity with an SANIYA of +52%. She had a blunted heart rate response, achieving a maximum heart rate of only 115 bpm (78% of her predicted maximum) but a normal blood pressure response. She stopped because of generalized fatigue without any chest discomfort. Her resting ECG shows sinus rhythm with nonspecific T-wave abnormalities anteriorly but normal ST segments. With stress, there are no significant ST-segment shifts or arrhythmias. Because of her failure to achieve an adequate heart rate response, she was given 0.4 mg of regadenoson, again without any chest discomfort and only minimal dyspnea but some nausea that spontaneously resolved, Her ECG remains unchanged without concerning ST segment shifts. Per protocol, 24.7 mCi of technetium-99m Myoview was injected and she was imaged 15 minutes later using a gated SPECT acquisition protocol. Earlier in the day while at rest, she had been injected with 11.5 mCi of technetium-99m Myoview and was imaged 15 minutes later, again using a gated SPECT acquisition protocol. FINDINGS: RAW DATA: There is fairly good myocardial tracer uptake. The lung/heart ratio is normal at 0.30 with a normal TID ratio of 0.65. QUANTITATED GATED SPECT: Post-stress ejection fraction is estimated at 95% but is likely an overestimate because of relatively small left ventricular volumes. There are no focal wall motion abnormalities. Resting ejection fraction is 64% with a borderline small resting end-diastolic volume of 67 mL. MYOCARDIAL PERFUSION SCAN: Post-stress supine images show a normal perfusion pattern without any concerning perfusion defects, supported by normal perfusion imaging in the prone position. The resting images show an identical perfusion pattern without any areas of improvement. IMPRESSION: 1. Normal myocardial perfusion study for ischemia. 2. No perfusion defects to suggest myocardial ischemia or previous myocardial infarction. 3. High-normal left ventricular systolic function without focal wall motion abnormalities and relatively small left ventricular volumes. 4. Markedly reduced exercise capacity due to generalized fatigue but without angina, arrhythmias, or ECG evidence of ischemia. Roderick Mary - RS/fn/SD doc#: [id number]/job#: [id number] dd: 12/01/2024 17:12:00 dt: 12/01/2024 17:25:00 DICTATING MD/COPIES TO: Jag Aponte MD; Dr. Rasheeda Jacob COPIES MNE: TULIO; ; Dr. Rasheeda Jacob
== END ==
PROVIDERS: Family Provider Internal Medicine; PCP Internal Medicine; Referring Provider Internal Medicine; Visit Provider Internal Medicine
DX: R07.9 Chest pain, unspecified (principal)
CPT/HCPCS: 78452; 93017; A9502; J2785

== ENCOUNTER → 2024-12-12 06:47 | Outpatient (CLI) | payer MEDICARE, OTHER, SELFPAY ==
--- NOTE | 2024-12-12 06:48 | DI.ECHO.S_ITS ---
[facility] : : [id number] : [place] : : [id number] : : Phone: [phone] Echocardiogram Report + + :Name: RUCHI AN Study Date: 12/12/2024 Height: 62.5 in: :[facility] ReadingLocation: Weight: 134 lb : : Gender: Female BSA: 1.6 m2 : :: 1950 Age: 74 yrs BP: 140/76 mmHg: :Reason For Study: SHORTNESS OF BREATH : :Ordering Physician: TAHMINA : :JULIA Performed By: Miroslava Molina : :Referring: JULIA MARTEL : + + Interpretation Summary 1) Normal left ventricular thickness, size, wall motion, and systolic function (EF 60-65%). 2) Normal right ventricular size and function. 3) No significant valvular abnormalities. 4) The right ventricular systolic pressure is estimated to be at least 27 mmHg based on an estimated right atrial pressure of 3 mm Hg. 5) No prior Echo available for comparison. Procedure: A two-dimensional transthoracic echocardiogram with color flow and Doppler was performed. The study quality was technically adequate. There is no prior echocardiogram noted for this patient. The patient was in sinus rhythm with heart rates between 57-62 bpm during the exam. Left Ventricle: The left ventricle is normal in size and wall thickness. The ejection fraction is estimated to be 60-65%. Left ventricular systolic function appears normal without focal wall motion abnormalities. Diastolic parameters suggest a relaxation abnormality of the left ventricle, consistent with probable normal filling pressures. Right Ventricle: The right ventricle is normal in size and function. Atria: The left atrium is moderately dilated. Right atrial size is normal. There is no Doppler evidence for an interatrial shunt. Mitral Valve: The mitral valve leaflets appear mildly thickened, but open well. There is mild mitral annular calcification. There is trace mitral regurgitation. Aortic Valve: The aortic valve is trileaflet. The aortic valve opens well. There is no aortic valve stenosis. No aortic regurgitation is present. Tricuspid Valve: The tricuspid valve leaflets are thin and pliable. There is mild tricuspid regurgitation. The right ventricular systolic pressure is estimated to be at least 27 mmHg based on an estimated right atrial pressure of 3 mm Hg. Pulmonic Valve: The pulmonic valve leaflets are thin and pliable; valve motion is normal. There is trace pulmonic regurgitation. Great Vessels: The aortic root is normal size. The dimensions of the ascending aorta are normal. The IVC is of normal diameter and collapses greater than 50% with a sniff. This suggests a low right atrial pressure of 3 mm Hg. Pericardium/ Pleura There is no pericardial effusion. There is no pleural effusion. MMode/2D Measurements & Calculations LVIDd: 4.3 cm LVOT diam: 1.9 cm LVIDs: 2.7 cm Ao root diam: 2.8 cm FS: 36.2 % asc Aorta Diam: 3.1 cm IVSd: 0.57 cm Ao Arch Diam (Prox Trans): 2.8 cm LVPWd: 0.60 cm LV tyler. diameter/BSA (cm/m^2): 2.7 LV sys. diameter/BSA (cm/m^2): 1.7 LA A2 area: 21.2 cm2 RA long axis: 4.6 cm LA A4 area: 18.1 cm2 RA area: 14.3 cm2 LA length (vol): 5.3 cm RA vol: 38.1 ml LA vol: 61.2 ml RA : 23.5 ml/m2 LA vol index: 37.7 ml/m2 IVC diam: 1.6 cm RVD1 (basal): 3.6 cm RVD2 (mid): 2.6 cm TAPSE: 2.3 cm Doppler Measurements & Calculations Ao V2 max: 161.2 cm/sec LVOT Max Luis: 104.5 cm/sec Ao V2 mean: 107.0 cm/sec LV V1 max P.4 mmHg Ao max P.4 mmHg LV V1 VTI: 23.3 cm Ao mean P.3 mmHg SNOW(I,D): 1.8 cm2 Ao V2 VTI: 36.2 cm SNOW(V,D): 1.8 cm2 sev ratio: 0.64 SNOW indexed to BSA (cm^2/m^2): 1.1 MV E max luis: 88.8 cm/sec TR max luis: 243.9 cm/sec MV A max luis: 74.9 cm/sec TR max P.8 mmHg MV E/A: 1.2 PA V2 max: 87.5 cm/sec Med Peak E' Luis: 11.1 cm/sec PA V2 mean: 59.0 cm/sec E/E' med: 8.0 PA mean P.6 mmHg Lat Peak E' Luis: 10.8 cm/sec PA pr(Accel): 29.3 mmHg E/E' lat: 8.2 E/e' average: 8.1 MV dec time: 0.20 sec SV(LVOT): 65.5 ml Reading Physician:10:22 AM
== END ==
PROVIDERS: Family Provider Internal Medicine; PCP Internal Medicine; Referring Provider Internal Medicine; Visit Provider Internal Medicine
DX: I08.1 Rheumatic disorders of both mitral and tricuspid valves (principal); R06.02 Shortness of breath
CPT/HCPCS: 93306

== ENCOUNTER → 2025-05-01 14:42 | Outpatient (CLI) | payer MEDICARE, OTHER, SELFPAY | PROVIDERS: Family Provider Internal Medicine; PCP Internal Medicine; Referring Provider Internal Medicine Critical Care Medicine; Visit Provider Internal Medicine Critical Care Medicine | DX: J45.20 Mild intermittent asthma, uncomplicated (principal); R94.2 Abnormal results of pulmonary function studies; G47.33 Obstructive sleep apnea (adult) (pediatric) | CPT/HCPCS: 94060; 94726; 94729 ==

== ENCOUNTER → 2025-05-31 08:14 | Outpatient (CLI) | payer MEDICARE, OTHER, SELFPAY ==
[2025-05-31 10:06] LABS: HEMOLYSIS < 15 (0-50); Iron 93 ug/dL (37-170)
[2025-05-31 10:18] LABS: Percent Iron Saturation 29 % (15-50); Total Iron Binding Capacity 325 ug/dL (265-497); Transferrin 287 mg/dL (206-381)
[2025-05-31 16:26] LABS: Ferritin 11 ng/mL (11-264)
== END ==
PROVIDERS: Family Provider Internal Medicine; PCP Internal Medicine; Referring Provider Internal Medicine Sleep Medicine; Visit Provider Internal Medicine Sleep Medicine
DX: E83.10 Disorder of iron metabolism, unspecified (principal); G25.81 Restless legs syndrome
CPT/HCPCS: 36415; 82728; 83540; 83550